=== PATIENT | male | born 1940 | race Caucasian/White ===

== ENCOUNTER → 2016-07-03 | Outpatient (CLI) | payer MEDICARE ==
--- NOTE | 2016-07-04 09:48 | XR ---
EXAMINATION TYPE: XR forearm RT DATE OF EXAM: 07/03/2016 11:33 AM COMPARISON: NONE HISTORY: Pain Two views of the forearm demonstrate that the osseous structures appear to be intact and the joint sp aces appear to be preserved. There is no acute fracture or dislocation. Small olecranon spur noted. There is a bony deformity of the distal lateral epicondyles which appears chronic. IMPRESSION: 1. No acute fracture or dislocation 2. Bony deformity is awfully lateral epicondyles appears chronic. May be related to remote trauma or small osteochondroma. Consider elbow series.
== END | disposition home or self-care (01) ==
LOC: RADXRYALE 10:03
PROVIDERS: ATTEND Family Medicine
DX: M95.9 Acquired deformity of musculoskeletal system, unspecified (principal); M79.631 Pain in right forearm; Z91.81 History of falling

== ENCOUNTER → 2016-07-26 | Outpatient (CLI) | payer MEDICARE ==
--- NOTE | 2016-07-26 13:29 | MR ---
EXAMINATION TYPE: MR brain wo con DATE OF EXAM: 07/26/2016 1:19 PM COMPARISON: 07/17/2013 HISTORY: Memory loss T1-weighted sagittal, T2, FLAIR, and diffusion axial, and T2 coronal coronal views of the brain are s ubmitted. There is no evidence of acute ischemia. The ventricles, basal cisterns, and sulci overlying the conv exities are consistent with moderate degenerative change. Periventricular and deep white matter areas of abnormal signal are compatible with remote ischemic ch avani. Craniocervical junction maintained. Sella turcica has a normal appearance. There is mild mucosal thickening involving the posterior nasopharynx which may be inflammatory correl ate clinically. Changes of mild sinusitis noted. IMPRESSION: 1. No acute intracranial process. 2. Moderate degenerative and remote ischemic white matter change.
== END | disposition home or self-care (01) ==
LOC: RADMRIMAIN 12:39
PROVIDERS: ATTEND Psychiatry & Neurology Neurology
DX: G30.1 Alzheimer's disease with late onset (principal)
CPT/HCPCS: 70551

== ENCOUNTER → 2019-02-26 | Outpatient (CLI) | payer MEDICARE ==
--- NOTE | 2019-02-26 14:08 | CT ---
EXAMINATION TYPE: High-resolution CT chest DATE OF EXAM: 02/26/2019 COMPARISON: 04/23/2013 HISTORY: 78-year-old male with cough and shortness of breath. TECHNIQUE: Contiguous high resolution axial scanning of the chest without IV contrast. 1 mm slice thi ckness with 1 cm gap was utilized per HRCT protocol. Both prone and supine imaging was performed. CT DLP: 213 mGycm Automated exposure control for dose reduction was used. FINDINGS: Heart upper limits of normal in size without pericardial effusion. Mitral annular calcifications note d. Ascending aorta is ectatic at 3.6 cm with mild atherosclerotic arch calcifications and conventional a [facility] vessel branching anatomy. By noncontrast, HRCT technique, no thoracic lymphadenopathy is identified. Large caliber to the main right and left pulmonary arteries at 2.5 and 2.8 cm, respectively, suggesti ng underlying pulmonary arterial hypertension. Mild diffuse bronchial wall thickening. Mild to moderate upper lung centrilobular emphysema. Few scattered 4 mm pulmonary nodules left upper lobe, one nodule axial image 20 posteriorly not clear ly seen previously and can be reassessed at 6 months. No honeycombing, dominant groundglass, centrilobular nodularity, tree-in-bud opacities, thickening of the bronchovascular bundles. There is some subsegmental atelectasis along the inferior lingula. No consolidation or pleural effusion. Bones: Osteopenia. Mild endplate spondylosis through throughout the thoracic spine. Old bilateral cla vicular fractures. IMPRESSION: 1. COPD WITH MILD TO MODERATE EMPHYSEMA. 2. PULMONARY ARTERIAL HYPERTENSION. 3. A FEW SCATTERED LEFT UPPER LOBE PULMONARY NODULES MEASURING 4 MM. ONE OF THESE APPEARS TO BE NEW F 2012 AND CAN BE REASSESSED IN 6 MONTHS. 4. NO SPECIFIC HRCT FINDINGS OF INTERSTITIAL LUNG DISEASE.
== END | disposition home or self-care (01) ==
LOC: RADCTMAIN 10:50
PROVIDERS: ATTEND Internal Medicine Critical Care Medicine
DX: J43.9 Emphysema, unspecified (principal); I27.21 Secondary pulmonary arterial hypertension
CPT/HCPCS: 71250

== ENCOUNTER → 2020-02-08 | Outpatient (CLI) | payer MEDICARE ==
--- NOTE | 2020-02-08 16:07 | XR ---
Bilateral hips HISTORY: Pain 2 views of each hip are submitted. Vascular calcifications are noted incidentally. Bone mineralization, joint spaces and alignment are m aintained. IMPRESSION: Normal hips.
--- NOTE | 2020-02-08 16:32 | XR ---
Lumbar spine HISTORY: Pain 3 views lumbar spine Anterior wedge compression deformity T10 is of questionable age, mild anterior wedging also present a t T12, T11. There is a resulting kyphosis. There is multilevel spondylosis. Lumbar vertebral bodies s how preserved alignment. Loss of disc height present at L3-4, L5-S1. Process is present in the driller helper ior elements of the lower lumbar spine compatible with facet arthropathy. Bone mineralization is redu juan manuel. There is a inferior vena cava filter present with the nose superimposed over the T12-L1 disc spa ce, there is a tilt towards the right and anteriorly. Calcifications are present in the paraspinal lo cation, possible nephrolithiasis. Atheromatous calcification present within the splenic artery and ao rta is noted. IMPRESSION: Degenerative disc disease, osteopenia, facet arthropathy. Inferior vena cava filter as de scribed, possible nephrolithiasis. Wedge compression deformities in the lower thoracic spine of quest ionable age.
== END | disposition home or self-care (01) ==
LOC: RADXRMAIN 13:13
PROVIDERS: ATTEND Family Medicine
DX: M51.36 Other intervertebral disc degeneration, lumbar region (principal); M47.816 Spondylosis without myelopathy or radiculopathy, lumbar region; M85.88 Other specified disorders of bone density and structure, other site; Z95.828 Presence of other vascular implants and grafts; M25.552 Pain in left hip; M25.551 Pain in right hip
CPT/HCPCS: 72100; 73521

== ENCOUNTER → 2021-02-07 | Outpatient (CLI) | payer MEDICARE | END | disposition home or self-care (01) | LOC: LABPAT 13:25 | PROVIDERS: ATTEND Orthopaedic Surgery | DX: Z01.812 Encounter for preprocedural laboratory examination (principal); M17.12 Unilateral primary osteoarthritis, left knee; Z22.322 Carrier or suspected carrier of Methicillin resistant Staphylococcus aureus | CPT/HCPCS: 87070 ==

== ENCOUNTER 2021-02-20 08:47 | Observation (INO) | payer MEDICARE ==
[2021-02-10 15:15] VITALS: BMI 30.3
--- NOTE | 2021-02-19 11:21 | HP ---
HISTORY AND PHYSICAL DATE OF SURGERY: 02/20/2021 William Carrasco is an 80-year-old gentleman seen with symptomatic left knee osteoarthritis. We discussed options for treatment. He elected to proceed with left total knee arthroplasty. Consent regarding the procedure was obtained. Medical clearance was provided by Dr. Jose Marx. PAST MEDICAL HISTORY: Hypertension, hyperlipidemia, hypothyroidism, asthma. PAST SURGICAL HISTORY: Tonsillectomy, adenoidectomy, vasectomy. DAILY MEDICATIONS: Cozaar, Lipitor, Synthroid, tramadol, Ventolin inhaler. ALLERGIES: NONE REPORTED. SOCIAL HISTORY: He denies current tobacco use. PHYSICAL EVALUATION OF THE LEFT KNEE: Range of motion is negative 3/4 to 100. Mild effusion. Tenderness, medial joint line. Crepitus, medial and patellofemoral compartments with range of motion. Ligaments stable. Hip rotation without pain. Distal neurovascular exam intact. RADIOGRAPHS: Radiographs of the left knee revealed severe osteoarthritic changes. IMPRESSION: 1. Left knee osteoarthritis. 2. Hypertension. 3. Hyperlipidemia. 4. Asthma. PLAN: Left total knee arthroplasty. MMODL / IJN: [id number] /
[~2021-02-20 08:47] MED LIST: ACETAMINOPHEN TAB 500 MG TAB PO PRN; HYDROmorphone 0.5 MG/0.5 ML SYRINGE IVP PRN; MELOXICAM 7.5 MG TAB PO PRN; ONDANSETRON 4 MG/2 ML VIAL IVP ONE; ROPIVACAINE/EPI/CLONIDINE/KET 50 ML SYRINGE MISCELLANE PRN; TRANEXAMIC ACID 1,000 MG in SODIUM CHLORIDE 0.9% 100 ML IVPB PRN
[2021-02-20] MEDS: LACTATED RINGERS 1,000 ML IV SCH (09:47)
[2021-02-20] MEDS ORDERED: LIDOCAINE 1% (10MG/ML) FOR IV START INTRADERMA ONE (09:48)
[2021-02-20] MEDS ORDERED: MIDAZOLAM 2 MG/2 ML VIAL IVP ONE ×2 (10:11→10:28)
[2021-02-20] MEDS ORDERED: fentaNYL (PF) 50 MCG/ML 2 ML AMP IVP ONE ×2 (10:11→10:27)
[2021-02-20] MEDS ORDERED: PROPOFOL 10 MG/ML 20 ML VIAL IV ONE (10:25)
[2021-02-20] MEDS ORDERED: SODIUM CHLORIDE 0.9% 100 ML BAG ONE (10:25)
[2021-02-20] MEDS ORDERED: TRANEXAMIC ACID 1,000 MG/10 ML VIAL ONE (10:25)
[2021-02-20] MEDS ORDERED: MIDAZOLAM 2 MG/2 ML VIAL ONE (10:25)
[2021-02-20] MEDS ORDERED: ROPIVACAINE 5 MG/ML 30 ML VIAL ONE (10:25)
--- NOTE | 2021-02-20 10:51 | P.ANPRN ---
Procedure Note - Anesthesia - Nerve Block Performed Left Adductor Canal Infusion Time Out Performed: Yes (1009) Date of Procedure: 02/20/21 Procedure Start Time: 10:11 Procedure Stop Time: 10:16 Location of Patient: PreOp Indication: Acute Post-Operative Pain, Requested by Surgeon Specifically requested for management of pain by DrOphelia: Kirit Valle Sedation Type: Sedate with meaningful contact maintained Preparation: Sterile Prep, Sterile Dressing Position: Supine Catheter Depth at Skin (cm): 8 Catheter: None Needle Types: Pajunk Needle Gauge: 21 Ultrasound used to visualize needle placement: Yes Ultrasound used to observe medication spread: Yes Injectate: 0.5% Ropivacaine (see comment for volume) (15cc + 5cc nacl) Blood Aspirated: No Pain Paresthesia on Injection Noted: No Resistance on Injection: Normal Image Stored and Saved: Yes Events: Uneventful and Well Tolerated Left iPack Single Time Out Performed: Yes (1009) Date of Procedure: 02/20/21 Procedure Start Time: 10:17 Procedure Stop Time: 10:23 Location of Patient: PreOp Indication: Acute Post-Operative Pain, Requested by Surgeon Specifically requested for management of pain by DrOphelia: Kirit Valle Sedation Type: Sedate with meaningful contact maintained Preparation: Sterile Prep Position: Supine Catheter: None Needle Types: Pajunk Needle Gauge: 21 Ultrasound used to visualize needle placement: Yes Ultrasound used to observe medication spread: Yes Injectate: 0.5% Ropivacaine (see comment for volume) (15cc + 5cc NACL PF) Blood Aspirated: No Pain Paresthesia on Injection Noted: No Resistance on Injection: Normal Image Stored and Saved: Yes Events: Uneventful and Well Tolerated
[2021-02-20] MEDS ORDERED: ceFAZolin 1,000 MG in SODIUM CHLORIDE 0.9% 1,000 ML IRRIGATION ONE (10:56)
[2021-02-20] MEDS ORDERED: HYDROmorphone 0.2 MG/1 ML SYRINGE IVP PRN (12:00)
[2021-02-20] MEDS ORDERED: HYDROcodone/APAP 5-325MG 1 EACH TAB PO PRN (12:00)
[2021-02-20] MEDS ORDERED: ONDANSETRON 4 MG/2 ML VIAL IVP PRN (12:00)
[2021-02-20] MEDS ORDERED: NALOXONE 0.4 MG/ML 1 ML VIAL IV PRN (12:00)
[2021-02-20] MEDS ORDERED: HYDROmorphone 0.5 MG/0.5 ML SYRINGE IVP PRN (12:00)
--- NOTE | 2021-02-20 12:00 | P.OP ---
Date of Procedure: 02/20/21 Preoperative Diagnosis: Left knee osteoarthritis Postoperative Diagnosis: Left knee osteoarthritis Procedure(s) Performed: Left total knee arthroplasty Implants: 1. Depuy attune size 5 left cruciate retaining cemented femur 2. Depuy attune size 5 fixed bearing cemented tibial baseplate 3. Depuy attune size 5 fixed bearing cruciate-retaining 5 mm polyethylene tibial insert 4. Depuy attune 38 mm all polyethylene cemented patella Anesthesia: regional (Adductor canal catheter, Ipack block), spinal Surgeon: Kirit Valle [employer] #1: Filipe Parker Estimated Blood Loss (ml): 45 Pathology: other (Bone) Condition: stable Disposition: PACU Indications for Procedure: 80-year-old patient seen with symptomatic left knee osteoarthritis. After treatment options were discussed, he elected to proceed with total knee arthroplasty. Operative Findings: See description of procedure Description of Procedure: Patient was taken to the operative suite after having an adductor canal catheter placed by the department of anesthesia as well as an Ipack block for postoperative pain management. Patient underwent a spinal anesthetic by the department of anesthesia. Patient was given preoperative IV intake antibiotics and TXA. A well-padded tourniquet was placed about the left lower extremity. The lower extremity was then prepped and draped in the normal sterile orthopedic fashion. The extremity was elevated, a tourniquet was insufflated to 300. A standard anterior incision was made sharply through skin. Dissection was taken down through the subcutaneous soft tissues down to the extensor mechanism. A medial arthrotomy was performed, patella was everted and knee was flexed. There was advanced osteoarthritis noted. I introduced my distal intramedullary femoral drill. I then introduced the distal femoral cutting jig. Filipe PIMENTEL secured the cutting jig with 2 pins. I held retractors in position while Filipe PIMENTEL performed the distal femoral resection through the guide area we now removed her distal femoral cutting guide. We now placed our 4-in-1 femoral cutting block and positioned and it was secured with 2 pins by Filipe PIMENTEL while I held the block in position. The distal femoral finishing was now completed. A proximal tibial cutting guide was positioned. I held the guide in the appropriate position with both hands well Filipe PIMENTEL inserted stabilizing pins into the guide. Proximal tibial cut was made. We now placed a trial femoral component into position, along with an appropriate size tibial tray and insert. We now took the knee through range of motion and had full extension good flexion and good overall soft tissue balance noted. The patella was everted and stabilized with 2 towel clips held by Filipe PIMENTEL while I p erformed a flush with patellar quad tendon utilizing a fresh sawblade. We templated the patella, appropriate drill holes were made. An appropriate trial patella was positioned, knee was taken through full range of motion with the patella tracking very nicely. The trial patella was removed. Drill holes were made through the femoral component. All trial components were removed after marking off the appropriate rotation of the tibia. Retractors were now positioned along the proximal tibia. An appropriate keel punch was made with the appropriate size tibial guide by myself while Filipe PIMENTEL assisted by holding retractors. At this point appropriate size implants were chosen and opened. The joint was irrigated copiously with pulse lavage mechanical irrigation. The posterior capsule was infiltrated with local analgesic. The wound was irrigated with pulse lavage mechanical irrigation. We mixed antibiotic methylmethacrylate. We placed the knee into flexion. We placed multiple retractors assisted by Filipe PIMENTEL to expose the proximal tibia. Once the methyl methacrylate was ready, the tibial component was cemented into place removing any excess methylmethacrylate form by both myself and Filipe PIMENTEL. The femoral component was cemented into place removing the removing any excess methylmethacrylate performed by both myself and Filipe PIMENTEL. We then inserted the appropriate size polyethylene tibial insert. We made sure that it was locked into position. We took the knee into full extension, and then back in a flexion making sure we had removed any excess methylmethacrylate. The patellar component was then cemented down and secured with clamp. Excess methylmethacrylate removed. We kept the knee in full extension, patellar clamp in position until methylmethacrylate had hardened. Once it had hardened the patellar clamp was removed. The knee was taken through full range of motion. The patella tracked nicely. There was good soft tissue balancing. The tourniquet was now released. Additional hemostasis was achieved via electrocautery. A second gram of TXA was given. The wound again was irrigated with pulse lavage mechanical irrigation. The superficial soft tissues were infiltrated local analgesic. The extensor mechanism was repaired with Vicryl. We checked the repair with range of motion and it was stable. The subcutaneous soft tissues were repaired with Vicryl in layers. The skin was approximated with pernio/Dermabond. Sterile dressings were applied followed by loose web roll and Jason bandage. The patient was transferred to a bed, and taken to recovery in stable and satisfactory condition. Filipe PIMENTEL assisted with this complex procedure.
[2021-02-20] MEDS ORDERED: ROPIVACAINE 0.2%-NS ON-Q PUMP 1,090 MG, EMPTY PAIN BALL 1 EACH MISCELLANE PRN (12:35)
[2021-02-20] MEDS ORDERED: ROPIVACAINE 0.2%-NS ON-Q PUMP 2 MG/ML EACH MISCELLANE ONE (12:44)
--- NOTE | 2021-02-20 13:34 | XR ---
EXAMINATION TYPE: XR knee limited LT DATE OF EXAM: 02/20/2021 COMPARISON: NONE TECHNIQUE: Two views submitted HISTORY: Post op FINDINGS: There is a prosthetic knee in near anatomic alignment. There is soft tissue edema and emphysema. IMPRESSION: 1. Postoperative change. Appears in near-anatomic alignment
[2021-02-20] MEDS: SODIUM CHLORIDE 0.9% 1,000 ML IV SCH (14:51)
[2021-02-20] MEDS ORDERED: IPRATROPIUM-ALBUTEROL 3 ML NEB INHALATION PRN (16:04)
[2021-02-20] MEDS ORDERED: AZELASTINE 137MCG/SPRAY INTRANASAL PRN (16:05)
[2021-02-20 16:34] LABS: Glucose,Whole Blood 105 mg/dL (75-99)
[2021-02-20] MEDS: LOSARTAN 50 MG TAB PO SCH (17:32)
[2021-02-20] MEDS: HYDROmorphone 0.5 MG/0.5 ML SYRINGE IVP PRN ×2 (17:38→21:27)
[2021-02-20] MEDS ORDERED: amLODIPine 5 MG TAB PO STA (18:36)
[2021-02-20] MEDS: HYDROcodone/APAP 5-325MG 1 EACH TAB PO PRN (19:21)
[2021-02-20] MEDS: IPRATROPIUM-ALBUTEROL 3 ML NEB INHALATION SCH (20:23)
[2021-02-20] MEDS: FORMOTEROL FUMARATE 20 MCG/2 ML NEBU INHALATION SCH (20:23)
[2021-02-20] MEDS: levETIRAcetam 250 MG TAB PO SCH (21:25)
[2021-02-20] MEDS: SENNOSIDES-DOCUSATE SODIUM 1 EACH TAB PO SCH (21:25)
[2021-02-21] MEDS: HYDROcodone/APAP 5-325MG 1 EACH TAB PO PRN ×2 (05:14→10:46)
[2021-02-21] MEDS: LACTATED RINGERS 1,000 ML IV SCH (05:15)
[2021-02-21] MEDS: LEVOTHYROXINE 50 MCG TAB PO SCH (05:17)
--- NOTE | 2021-02-21 07:06 | P.PN ---
Progress Note - Text Progress Note Date: 02/21/21 (418) Anesthesiology Postop day 1 status post total knee arthroplasty with adductor canal catheter. Patient doing well. VAS 5 out of 10. [Gross strength intact in lower extremity]. [Afebrile]. [Denies alterations in sensorium]. [Catheter site intact]. Heart [regular rate] Lungs [nonlabored] Abdomen [nondistended] Assessment: Postop day [1] status post total knee arthroplasty with adductor canal catheter Plan: All questions answered. Maintain catheter [2] more days with patient removal at home. Instructions were given at discharge.[]
[2021-02-21 07:10] LABS: African American GFR (CKD) >90 (>60 ml/min/1.73 sqM); Anion Gap 6 mmol/L; Blood Urea Nitrogen 18 mg/dL (9-20); Calcium 8.5 mg/dL (8.4-10.2); Carbon Dioxide 28 mmol/L (22-30); Chloride 102 mmol/L (98-107); Glucose 110 mg/dL (74-99); Magnesium 1.8 mg/dL (1.6-2.3); Non-African American GFR(CKD) 80 (>60 ml/min/1.73 sqM); Sodium 136 mmol/L (137-145)
[2021-02-21] MEDS: SODIUM CHLORIDE 0.9% 1,000 ML IV SCH ×2 (07:53→21:17)
[2021-02-21] MEDS: MAGNESIUM OXIDE 400 MG TAB PO SCH (08:00)
[2021-02-21] MEDS: ENOXAPARIN 30 MG/0.3 ML SYRINGE SQ SCH ×2 (08:00→21:17)
[2021-02-21] MEDS: HYDROmorphone 0.5 MG/0.5 ML SYRINGE IVP PRN (08:00)
[2021-02-21] MEDS: levETIRAcetam 250 MG TAB PO SCH ×2 (08:00→21:17)
[2021-02-21] MEDS: LOSARTAN 50 MG TAB PO SCH (08:00)
[2021-02-21] MEDS: DONEPEZIL 10 MG TAB PO SCH (08:00)
--- NOTE | 2021-02-21 08:02 | P.PN ---
Subjective Progress Note Date: 02/21/21 Principal diagnosis: Status post left total knee arthroplasty Patient is evaluated today at bedside, he is resting in his hospital bed. He does have discomfort throughout the left knee. Hard time moving the knee at this time. He currently denies any headaches, lightheadedness, chest pain or shortness of breath. He is eager work with physical therapy today. Objective - Vital Signs Vital signs: Vital Signs Temp 98.3 F 02/21/21 07:32 Pulse 94 02/21/21 07:32 Resp 16 02/21/21 07:32 BP 139/69 02/21/21 07:32 Pulse Ox 98 02/21/21 07:32 Intake & Output 02/20/21 02/21/21 02/21/21 18:59 06:59 18:59 Intake Total 851 560 Output Total 445 875 Balance 406 -315 Weight 85.5 kg Intake: IV 851 Intake, IV Titration 320 Amount Sodium Chloride 0.9% 1, 220 000 ml @ 50 mls/hr IV . Q20H TOY Rx#:[id number] ceFAZolin 2 gm In Sodium 100 Chloride 0.9% 50 ml @ 100 mls/hr IVPB Q8H TOY Rx#: [id number] Oral 240 Output: Urine 400 875 Estimated Blood Loss 45 Other: # Voids 3 - Exam Left lower extremity: Incision is clean, dry, and intact. The foam dressing is in good condition. There is minimal soft tissue swelling and ecchymosis surrounding the medial and lateral aspects of the incision. Calf is soft, no tenderness with palpation. Plantar flexion, dorsiflexion, EHL, FHL are intact. Sensory exam to light touch throughout the extremity is intact, dorsal pedis pulses 2+. - Labs CBC & Chem 7: 02/21/21 06:16 Labs: Abnormal Lab Results - Last 24 Hours (Table) 02/20/21 02/21/21 Range/Units 16:31 06:16 Sodium 136 L (137-145) mmol/L Glucose 110 H (74-99) mg/dL POC Glucose (mg/dL) 105 H (75-99) mg/dL Assessment and Plan Assessment: Postoperative day #1 status post left total knee arthroplasty Plan: Pain control, continue use of current medication GI and DVT prophylaxis, continue subcu medication during inpatient stay Wound care instructions were discussed the patient Icing and elevating techniques discussed Encourage incentive spirometer Medical recommendations Discharge planning: Anticipate additional nights today for pain control along with ambulation training Time with Patient: Less than 30
[2021-02-21] MEDS: FORMOTEROL FUMARATE 20 MCG/2 ML NEBU INHALATION SCH ×2 (08:15→20:03)
[2021-02-21] MEDS: IPRATROPIUM-ALBUTEROL 3 ML NEB INHALATION SCH ×4 (08:15→20:03)
[2021-02-21 09:38] LABS: Basophils # (A) 0.04 X 10*3/uL (0.00-0.10); Basophils % (A) 0.6 %; Eosinophils % (A) 1.6 %; HCT 39.5 % (39.6-50.0); HGB 12.6 g/dL (13.0-17.0); Lymphocytes # (A) 1.52 X 10*3/uL (0.90-5.00); Lymphocytes % (A) 24.4 %; MCH 31.3 pg (27.0-32.0); MCHC 31.9 g/dL (32.0-37.0); MCV 98.3 fL (80.0-97.0); Mean Platelet Volume 10.4 fL (9.5-12.2); Monocytes # (A) 0.81 X 10*3/uL (0.20-1.00); Neutrophils # (A) 3.72 X 10*3/uL (1.80-7.70); Neutrophils % (A) 59.8 %; Platelet Count 139 X 10*3/uL (140-440); RBC 4.02 X 10*6/uL (4.40-5.60); RDW 12.9 % (11.5-14.5); WBC 6.23 X 10*3/uL (4.50-10.00)
--- NOTE | 2021-02-21 12:54 | P.PN ---
Progress Note - Text Progress Note Date: 02/21/21 Patient seen at bedside this morning. I agree with Joshua black PA-C note from this morning. Patient is in moderate amount pain when seen at bedside this morning. Will chhange from Aneta 5 mg/325 mg to Aneta 7.5 mg/325 mg for pain. Also add Vistaril every 6 hours for pain control. Hydromorphone only when needed
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
[2021-02-21 16:48] LABS: MCH 33.9 pg (25.0-35.0); MCHC 35.1 g/dL (31.0-37.0); MCV 96.4 fL (80.0-100.0); Mean Platelet Volume 8.6; Platelet Count 133 k/uL (150-450); RBC 3.84 m/uL (4.30-5.90); RDW 13.5 % (11.5-15.5); WBC 6.1 k/uL (3.8-10.6)
[2021-02-21] MEDS: hydrOXYzine pamoate 25 MG CAP PO SCH ×2 (17:02→22:57)
[2021-02-21] MEDS: HYDROcodone/APAP 7.5-325MG 1 EACH TAB PO PRN ×2 (17:02→22:58)
[2021-02-21] MEDS: SENNOSIDES-DOCUSATE SODIUM 1 EACH TAB PO SCH (21:17)
[2021-02-22] MEDS: HYDROcodone/APAP 7.5-325MG 1 EACH TAB PO PRN ×3 (05:52→21:59)
[2021-02-22] MEDS: LEVOTHYROXINE 50 MCG TAB PO SCH (05:52)
[2021-02-22] MEDS: hydrOXYzine pamoate 25 MG CAP PO SCH ×2 (05:53→10:29)
[2021-02-22] MEDS: LACTATED RINGERS 1,000 ML IV SCH (06:47)
[2021-02-22] MEDS: ENOXAPARIN 30 MG/0.3 ML SYRINGE SQ SCH ×2 (07:23→21:59)
[2021-02-22] MEDS: LOSARTAN 50 MG TAB PO SCH (07:24)
[2021-02-22] MEDS: levETIRAcetam 250 MG TAB PO SCH ×2 (07:24→21:59)
[2021-02-22] MEDS: DONEPEZIL 10 MG TAB PO SCH (07:24)
[2021-02-22] MEDS: MAGNESIUM OXIDE 400 MG TAB PO SCH (07:24)
[2021-02-22] MEDS: IPRATROPIUM-ALBUTEROL 3 ML NEB INHALATION SCH ×4 (09:18→21:20)
[2021-02-22] MEDS: FORMOTEROL FUMARATE 20 MCG/2 ML NEBU INHALATION SCH ×2 (09:18→21:20)
[2021-02-22 09:33] LABS: Basophils # (A) 0.04 X 10*3/uL (0.00-0.10); Basophils % (A) 0.7 %; Eosinophils % (A) 1.7 %; HCT 37.8 % (39.6-50.0); HGB 11.9 g/dL (13.0-17.0); Lymphocytes # (A) 1.61 X 10*3/uL (0.90-5.00); MCH 31.6 pg (27.0-32.0); MCHC 31.5 g/dL (32.0-37.0); MCV 100.5 fL (80.0-97.0); Mean Platelet Volume 10.3 fL (9.5-12.2); Monocytes # (A) 0.71 X 10*3/uL (0.20-1.00); Monocytes % (A) 11.9 %; Neutrophils # (A) 3.48 X 10*3/uL (1.80-7.70); Neutrophils % (A) 58.2 %; Platelet Count 124 X 10*3/uL (140-440); RBC 3.76 X 10*6/uL (4.40-5.60); RDW 13.1 % (11.5-14.5); WBC 5.97 X 10*3/uL (4.50-10.00)
--- NOTE | 2021-02-22 10:50 | P.PN ---
Subjective Progress Note Date: 02/22/21 Principal diagnosis: Status post left total knee arthroplasty Patient is evaluated today at bedside, he is resting in his hospital chair. Patient did get up with physical therapy prior to my arrival. I was able to discuss physical therapist his progress. Patient is moving very slowly at this time, he's having her time supporting himself with a walker. On my exam today, the patient seems very lethargic on exam. He is able to answer all my questions appropriately, but there is quite a bit of delay and pauses during his sentences. He states the knee is quite painful at this time. He denies any headaches, lightheadedness, chest or shortness of breath. Objective - Vital Signs Vital signs: Vital Signs Temp 98.7 F 02/22/21 07:48 Pulse 82 02/22/21 09:35 Resp 18 02/22/21 08:41 BP 109/64 02/22/21 07:48 Pulse Ox 97 02/22/21 07:48 Intake & Output 02/21/21 02/22/21 02/22/21 18:59 06:59 18:59 Intake Total 480 Output Total 150 400 Balance 330 -400 Intake: Oral 480 Output: Urine 150 400 Other: Voiding Method Toilet Toilet Urinal Urinal # Voids 3 - Exam Left lower extremity: Incision is clean, dry, and intact. The foam dressing is in good condition. There is minimal soft tissue swelling and ecchymosis surrounding the medial and lateral aspects of the incision. Calf is soft, no tenderness with palpation. Plantar flexion, dorsiflexion, EHL, FHL are intact. Sensory exam to light touch throughout the extremity is intact, dorsal pedis pulses 2+. - Labs CBC & Chem 7: 02/22/21 06:46 02/21/21 06:16 Labs: Abnormal Lab Results - Last 24 Hours (Table) 02/21/21 02/22/21 Range/Units Unknown 06:46 RBC 3.84 L 3.76 L (4.30-5.90) m/uL Hgb 11.9 L (13.0-17.0) g/dL Hct 37.0 L 37.8 L (39.0-53.0) % MCV 100.5 H (80.0-97.0) fL MCHC 31.5 L (32.0-37.0) g/dL Plt Count 133 L 124 L (150-450) k/uL Assessment and Plan Assessment: Postoperative day #2 status post left total knee arthroplasty Plan: Pain control, I did discontinue the Vistaril 25 mg. Continue the [place] as needed. GI and DVT prophylaxis, continue subcu medication during inpatient stay Wound care instructions were discussed the patient Icing and elevating techniques discussed Encourage incentive spirometer Medical recommendations Discharge planning: Plan for discharge to rehab on 02/23/2021 Time with Patient: Less than 30
[2021-02-22] MEDS: SENNOSIDES-DOCUSATE SODIUM 1 EACH TAB PO SCH (21:59)
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
[2021-02-23] MEDS: SODIUM CHLORIDE 0.9% 1,000 ML IV SCH (00:41)
[2021-02-23] MEDS ORDERED: ACETAMINOPHEN TAB 325 MG TAB PO PRN (03:50)
[2021-02-23] MEDS ORDERED: FUROSEMIDE 10 MG/ML 2 ML VIAL IV ONE (03:50)
--- NOTE | 2021-02-23 04:09 | XR ---
EXAMINATION TYPE: XR chest 1V portable DATE OF EXAM: 02/23/2021 COMPARISON: 02/21/2021 HISTORY: Congestion TECHNIQUE: Single view FINDINGS: Heart is normal. Lungs are clear of consolidation. There are no hilar masses. Thoracic aort a is atheromatous. There is no pleural effusion. Bony thorax is intact. There is old left clavicle fr acture. IMPRESSION: No active cardiopulmonary disease. There is improved inspiration compared to recent exam.
[2021-02-23] MEDS: LACTATED RINGERS 1,000 ML IV SCH (06:02)
[2021-02-23] MEDS: LEVOTHYROXINE 50 MCG TAB PO SCH (06:03)
[2021-02-23] MEDS: DONEPEZIL 10 MG TAB PO SCH (08:43)
[2021-02-23] MEDS: HYDROcodone/APAP 7.5-325MG 1 EACH TAB PO PRN ×4 (08:43→21:21)
[2021-02-23] MEDS: levETIRAcetam 250 MG TAB PO SCH ×2 (08:44→21:20)
[2021-02-23] MEDS: MAGNESIUM OXIDE 400 MG TAB PO SCH (08:44)
[2021-02-23] MEDS: LOSARTAN 50 MG TAB PO SCH (08:44)
[2021-02-23] MEDS: ENOXAPARIN 30 MG/0.3 ML SYRINGE SQ SCH ×2 (08:44→21:20)
[2021-02-23] MEDS: IPRATROPIUM-ALBUTEROL 3 ML NEB INHALATION SCH ×4 (09:09→20:28)
[2021-02-23] MEDS: FORMOTEROL FUMARATE 20 MCG/2 ML NEBU INHALATION SCH ×2 (09:09→20:28)
[2021-02-23 09:12] LABS: Basophils # (A) 0.05 X 10*3/uL (0.00-0.10); Basophils % (A) 0.8 %; Eosinophils # (A) 0.18 X 10*3/uL (0.04-0.35); Eosinophils % (A) 2.9 %; HCT 37.1 % (39.6-50.0); HGB 11.6 g/dL (13.0-17.0); Lymphocytes # (A) 1.61 X 10*3/uL (0.90-5.00); Lymphocytes % (A) 25.9 %; MCH 32.1 pg (27.0-32.0); MCHC 31.3 g/dL (32.0-37.0); MCV 102.8 fL (80.0-97.0); Mean Platelet Volume 10.6 fL (9.5-12.2); Monocytes # (A) 0.67 X 10*3/uL (0.20-1.00); Monocytes % (A) 10.8 %; Neutrophils # (A) 3.67 X 10*3/uL (1.80-7.70); Platelet Count 139 X 10*3/uL (140-440); RBC 3.61 X 10*6/uL (4.40-5.60); RDW 13.2 % (11.5-14.5); WBC 6.22 X 10*3/uL (4.50-10.00)
[2021-02-23] MEDS ORDERED: PANTOPRAZOLE 40 MG/10 ML VIAL IVP SCH (09:30)
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
--- NOTE | 2021-02-23 10:12 | P.PN ---
Subjective Progress Note Date: 02/23/21 Principal diagnosis: Status post left total knee arthroplasty Patient is evaluated today at bedside, he is resting in his hospital chair. Patient did work with physical therapy this morning, I was able to discuss the case with them. He is doing a little bit better with ambulation, he still having a hard time bending the knee when going from a sitting to standing position. Patient seems more alert today on exam. He still notes significant discomfort throughout the knee. Patient denies any headaches, lightheadedness, chest pain or shortness of breath. Patient has not had a bowel movement at this time. Objective - Vital Signs Vital signs: Vital Signs Temp 98.6 F 02/23/21 07:44 Pulse 88 02/23/21 09:19 Resp 18 02/23/21 09:19 BP 155/76 02/23/21 07:44 Pulse Ox 96 02/23/21 09:09 Intake & Output 02/22/21 02/23/21 02/23/21 18:59 06:59 18:59 Output Total 200 1425 450 Balance -200 -1425 -450 Output: Urine 200 1425 450 Other: Voiding Method Toilet Urinal # Voids 2 - Exam Left lower extremity: Incision is clean, dry, and intact. The foam dressing is in good condition. There is minimal soft tissue swelling and ecchymosis surrounding the medial and lateral aspects of the incision. Calf is soft, no tenderness with palpation. Plantar flexion, dorsiflexion, EHL, FHL are intact. Sensory exam to light touch throughout the extremity is intact, dorsal pedis pulses 2+. - Labs CBC & Chem 7: 02/23/21 05:31 02/21/21 06:16 Labs: Abnormal Lab Results - Last 24 Hours (Table) 02/23/21 Range/Units 05:31 RBC 3.61 L (4.40-5.60) X 10*6/uL Hgb 11.6 L (13.0-17.0) g/dL Hct 37.1 L (39.6-50.0) % MCV 102.8 H (80.0-97.0) fL MCH 32.1 H (27.0-32.0) pg MCHC 31.3 L (32.0-37.0) g/dL Plt Count 139 L (140-440) X 10*3/uL Assessment and Plan Assessment: Postoperative day #3 status post left total knee arthroplasty Constipation Plan: Pain control, plan for use of oral [place] 7.5 mg/325 mg GI and DVT prophylaxis, aspirin 81 mg twice a day for 1 month after discharge Colace 100 mg and MiraLAX 17 g have been prescribed as patient Wound care instructions were discussed the patient Icing and elevating techniques discussed Encourage incentive spirometer Medical recommendations Discharge planning: Plan for discharge to rehab today Time with Patient: Less than 30
[2021-02-23] MEDS ORDERED: polyethylene glycoL 3350 17 GM POWD.PACK PO STA (10:19)
[2021-02-23] MEDS: hydrALAZINE HCL 25 MG TAB PO SCH ×3 (11:22→21:20)
--- NOTE | 2021-02-23 13:45 | US ---
EXAMINATION TYPE: US venous doppler duplex LE LT DATE OF EXAM: 02/23/2021 10:52 AM COMPARISON: NONE CLINICAL HISTORY: calf pain, s/p left tka. SIDE PERFORMED: Left TECHNIQUE: The lower extremity deep venous system is examined utilizing real time linear array sonog butch with graded compression, doppler sonography and color-flow sonography. VESSELS IMAGED: Common Femoral Vein Deep Femoral Vein Greater Saphenous Vein * Femoral Vein Popliteal Vein Small Saphenous Vein * Proximal Calf Veins (* superficial vessels) Complex bakers cyst seen in the left popliteal fossa measuring 5.2x1.7x3.6cm There is normal flow, compressibility, vascular waveforms. Left Leg: Negative for DVT IMPRESSION: No evident deep venous anastomosis at the level of the knee or central to the left knee within the left lower extremity. Irregular focus within the popliteal fossa shows low level internal echoes and may be a complicated Arce's cyst, hematoma, follow-up could be performed to assess for s tability or resolution or alternatively consider alternate imaging for better evaluation.
--- NOTE | 2021-02-23 14:30 | P.DS ---
Providers Date of admission: 02/21/21 13:51 Expected date of discharge: 02/23/21 Attending physician: Kirit Valle Consults: 02/20/21 12:00 Consult Physician Routine Consulting Provider: Jose Marx Reason/Comments: Medical management Do you want consulting provider notified?: Yes Primary care physician: Jose Marx Hospital Course: Date of admission: 02/20/2021 Date of discharge: 02/23/2021 Admission diagnosis: Status post left total knee arthroplasty Discharge diagnosis: Same Attending physician: Dr. Valle Surgical procedures: Left total knee arthroplasty Brief history: Patient is a a 80-year-old male with a history of progressive primary left knee osteoarthritis. At this point patient has failed conservative treatment measures and has opted to proceed with a elective left total knee arthroplasty. Hospital course: Details of patient's surgery can be found in operative report. Patient tolerated the procedure well and was subsequently transported to orthopedic floor. Patient's orthopeidc and medical care was provided daily. Patient had daily laboratory tests performed for evaluation of overall blood counts. Patient had daily physical therapy to include strengthening range of motion as well as education with walker ambulation. Patient was treated with Lovenox for their postoperative DVT prophylaxis during their inpatient stay. Patient was noted to have a relatively uneventful postoperative course. Patient reported satisfactory pain control with oral pain medications by postoperative day 1. Patient showed satisfactory progress with physical therapy. Patient moved steadily through the program and had no difficulty meeting the goals by postoperative day 3. Given patient's otherwise satisfactory course and having met physical therapy goals, plan is to discharge patient rehab on postoperative day 3. Discharge condition/disposition: Patient will be discharged to rehab in stable condition. Discharge medications: Instructions are given on resumption of patient's normal daily medications per primary care recommendation, in addition patient will be prescribed [place] 7.5 mg/325 mg, aspirin 81 mg, Colace 100 mg, MiraLAX 17 g. Discharge instructions: 1. Wound care and infection precautions, [keep incision dry and covered while showering], no lotions, creams, moisturizers. No soaking, tubs, pools, hottubs. Do not scrub over the incision. 2. Weight-bear [as tolerated] with walker / cane until follow-up. 3. Ice and elevate when necessary. Do not exceed 20 minutes per hour with ice pack. 4. Utilize compression sleeve until seen at first follow up appointment. 5. Visiting nursing care. 6. Home physical therapy. 7. Pain meds and anticoagulants per prescription. 8. Pain medication has potential to cause constipation. Increase oral fluid and fiber intake. Contact primary care provider if you have not had a bowel movement within 48 hours after discharge 9. No anti-inflammatory medication until discussed at first post operative visit, this including Motrin, Aleve, Mobic, Diclofenac. 10. Follow up in office at 2 weeks postop with Joshua Christina PA-C/Filipe Ho 11. Follow up with your primary care doctor 7-10 days after discharge. 12. Contact [facility] with any questions, . Procedures: Left total knee arthroplasty Patient Condition at Discharge: Fair Plan - Discharge Summary Discharge Rx Participant: Yes New Discharge Prescriptions: New HYDROcodone/APAP 7.5-325MG [[place] 7.5] 1 - 2 each PO Q6HR PRN #42 tab PRN Reason: Pain polyethylene glycoL 3350 [Miralax] 17 gm PO DAILY PRN #30 packet PRN Reason: Constipation Ipratropium-Albuterol Nebulize [Duoneb 0.5 mg-3 mg/3 ml Soln] 3 ml INHALATION RT-QID ml Sennosides-Docusate Sodium [Senokot-S] 2 each PO HS tab Aspirin [Adult Low Dose Aspirin EC] 81 mg PO BID #60 tab Docusate [Colace] 100 mg PO DAILY #30 cap hydrALAZINE HCL [Apresoline] 25 mg PO TID tab Ipratropium-Albuterol Nebulize [Duoneb 0.5 mg-3 mg/3 ml Soln] 3 ml INHALATION Q4H PRN ml PRN Reason: Shortness Of Breath Or Wheezing Acetaminophen Tab [Tylenol] 650 mg PO Q6HR PRN tab PRN Reason: Fever And/ Or Pain Continue Multivitamins, Thera [Multivitamin (formulary)] 1 tab PO DAILY Levothyroxine Sodium [Synthroid] 50 mcg PO DAILY Atorvastatin [Lipitor] 40 mg PO HS Olopatadine Hcl Manley 665 mcg NASAL BID PRN PRN Reason: Congestion Magnesium 250 mg PO DAILY levETIRAcetam [Keppra] 250 mg PO Q12HR Donepezil HCl [Aricept ODT] 10 mg PO DAILY Umeclidinium Brm/Vilanterol Tr [Anoro Ellipta 62.5-25 Mcg INH] 1 puff INHALATION DAILY Losartan Potassium [Cozaar] 100 mg PO DAILY Discontinued Albuterol Sulfate [Ventolin HFA] 1 - 2 puff INHALATION DIRECTED PRN PRN Reason: Shortness Of Breath Albuterol Nebulized [Ventolin Nebulized] 2.5 mg INHALATION DIRECTED PRN PRN Reason: sob No Action traMADol HCL [Ultram] 50 mg PO Q12HR PRN PRN Reason: Pain Acetaminophen [Tylenol Arthritis] 650 mg PO TID Discharge Medication List Atorvastatin [Lipitor] 40 mg PO HS 09/15/15 [History] Levothyroxine Sodium [Synthroid] 50 mcg PO DAILY 09/15/15 [History] Multivitamins, Thera [Multivitamin (formulary)] 1 tab PO DAILY 09/15/15 [History] Acetaminophen [Tylenol Arthritis] 650 mg PO TID 02/10/21 [History] Donepezil HCl [Aricept ODT] 10 mg PO DAILY 02/10/21 [History] Losartan Potassium [Cozaar] 100 mg PO DAILY 02/10/21 [History] Magnesium 250 mg PO DAILY 02/10/21 [History] Olopatadine Hcl Manley 665 mcg NASAL BID PRN 02/10/21 [History] Umeclidinium Brm/Vilanterol Tr [Anoro Ellipta 62.5-25 Mcg INH] 1 puff INHALATION DAILY 02/10/21 [History] levETIRAcetam [Keppra] 250 mg PO Q12HR 02/10/21 [History] traMADol HCL [Ultram] 50 mg PO Q12HR PRN 02/10/21 [History] Acetaminophen Tab [Tylenol] 650 mg PO Q6HR PRN tab 02/23/21 [Rx] Aspirin [Adult Low Dose Aspirin EC] 81 mg PO BID #60 tab 02/23/21 [Rx] Docusate [Colace] 100 mg PO DAILY #30 cap 02/23/21 [Rx] HYDROcodone/APAP 7.5-325MG [[place] 7.5] 1 - 2 each PO Q6HR PRN #42 tab 02/23/21 [Rx] Ipratropium-Albuterol Nebulize [Duoneb 0.5 mg-3 mg/3 ml Soln] 3 ml INHALATION Q4H PRN ml 02/23/21 [Rx] Ipratropium-Albuterol Nebulize [Duoneb 0.5 mg-3 mg/3 ml Soln] 3 ml INHALATION RT-QID ml 02/23/21 [Rx] Sennosides-Docusate Sodium [Senokot-S] 2 each PO HS tab 02/23/21 [Rx] hydrALAZINE HCL [Apresoline] 25 mg PO TID tab 02/23/21 [Rx] polyethylene glycoL 3350 [Miralax] 17 gm PO DAILY PRN #30 packet 02/23/21 [Rx] Follow up Appointment(s)/Referral(s): Jose Marx DO [Primary Care Provider] - 1 Week (After DC from subacute rehab) [facility], [NON-STAFF] - As Needed Doe Christina PAC [PHYSICIAN SUIT MAKER] - 03/08/21 3:20 [facility] [NON-STAFF] - As Needed Activity/Diet/Wound Care/Special Instructions: Orthopedic Discharge Instructions: 1. Wound care and infection precautions, keep incision dry and covered while showering, no lotions, creams, moisturizers. No soaking, pools, hot tubs. Do not scrub over incision. 2. Weight-bear as tolerated with walker / cane until follow-up. 3. Ice and elevate when necessary. Do not exceed 20 minutes per hour with ice pack. 4. Utilize compression sleeve until seen at first follow up appointment. 5. Pain meds and anticoagulants per prescription. 6. Pain medication has potential to cause constipation. Increase oral fluid and fiber intake. Contact primary care provider if you have not had a bowel movement within 48 hours after discharge. 7. No anti-inflammatory medication until discussed at first post operative visit, this including Motrin, Aleve, Mobic, Diclofenac. 8. Follow up in office at 2 weeks postop with Joshua Christina PA-C/Filipe Parker PA-C 9. Follow up with your primary care doctor 7-10 days after discharge. 10. Contact [facility] with any questions, . Wound care instructions: 1. Okay to remove the foam dressing on 02/27/2021 2. Utilize basic dressing over the knee 3. Keep incision covered and dry while showering CBC, BMP in 3 days Incentive spirometer every hour 10 [place] Discharge Disposition: TRANSFER TO SNF/ECF
[2021-02-23] MEDS: SENNOSIDES-DOCUSATE SODIUM 1 EACH TAB PO SCH (21:20)
[2021-02-24] MEDS: LEVOTHYROXINE 50 MCG TAB PO SCH (05:53)
[2021-02-24] MEDS ORDERED: PANTOPRAZOLE 40 MG TABLET PO SCH (07:30)
[2021-02-24 07:32] VITALS: BP 169/79; RESP 20; TEMP 98.8
[2021-02-24] MEDS: LOSARTAN 50 MG TAB PO SCH (08:57)
[2021-02-24] MEDS: hydrALAZINE HCL 25 MG TAB PO SCH (08:58)
[2021-02-24] MEDS: MAGNESIUM OXIDE 400 MG TAB PO SCH (08:58)
[2021-02-24] MEDS: DONEPEZIL 10 MG TAB PO SCH (08:58)
[2021-02-24] MEDS: ENOXAPARIN 30 MG/0.3 ML SYRINGE SQ SCH (08:59)
[2021-02-24] MEDS: levETIRAcetam 250 MG TAB PO SCH (08:59)
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
[2021-02-24] MEDS: FORMOTEROL FUMARATE 20 MCG/2 ML NEBU INHALATION SCH (09:59)
[2021-02-24] MEDS: IPRATROPIUM-ALBUTEROL 3 ML NEB INHALATION SCH ×2 (09:59→13:14)
[2021-02-24] MEDS: HYDROcodone/APAP 7.5-325MG 1 EACH TAB PO PRN (10:55)
--- NOTE | 2021-02-24 12:32 | P.PN ---
Subjective Progress Note Date: 02/24/21 Principal diagnosis: Status post left total knee arthroplasty Patient is evaluated today at bedside, he is resting in his hospital bed. Patient's is present today at bedside. Patient was kept overnight by internal medicine due to his elevated blood pressures. They have altered his medications, it is improving. Patient's left knee symptoms are improving, he still notes discomfort. He denies any headaches, lightheadedness, chest pain or shortness of breath Objective - Vital Signs Vital signs: Vital Signs Temp 98.8 F 02/24/21 07:30 Pulse 90 02/24/21 07:30 Resp 20 02/24/21 07:30 BP 169/79 02/24/21 07:30 Pulse Ox 97 02/24/21 07:30 Intake & Output 02/23/21 02/24/21 02/24/21 18:59 06:59 18:59 Output Total 650 Balance -650 Output: Urine 650 Other: Voiding Method Toilet Toilet Toilet Urinal Urinal Urinal # Voids 1 4 - Exam Left lower extremity: Incision is clean, dry, and intact. The foam dressing is in good condition. There is minimal soft tissue swelling and ecchymosis surrounding the medial and lateral aspects of the incision. Calf is soft, no tenderness with palpation. Plantar flexion, dorsiflexion, EHL, FHL are intact. Sensory exam to light touch throughout the extremity is intact, dorsal pedis pulses 2+. - Labs CBC & Chem 7: 02/23/21 05:31 02/21/21 06:16 Assessment and Plan Assessment: Postoperative day #4 status post left total knee arthroplasty Constipation Plan: Pain control, plan for use of oral Newman 7.5 mg/325 mg GI and DVT prophylaxis, aspirin 81 mg twice a day for 1 month after discharge Colace 100 mg and MiraLAX 17 g have been prescribed as patient Wound care instructions were discussed the patient Icing and elevating techniques discussed Encourage incentive spirometer Medical recommendations Discharge planning: Discharging to rehab today Time with Patient: Less than 30
[2021-02-24 13:28] VITALS: PULSE 88
== END 2021-02-24 14:11 ==
LOC: OR 08:47 → 4SSUR 12:22 → OR 02-21 13:51
PROVIDERS: ADMIT Orthopaedic Surgery; ATTEND Orthopaedic Surgery
DX: M17.12 Unilateral primary osteoarthritis, left knee (principal); I97.3 Postprocedural hypertension; J95.821 Acute postprocedural respiratory failure; D62 Acute posthemorrhagic anemia; T81.82XA Emphysema (subcutaneous) resulting from a procedure, initial encounter; J98.11 Atelectasis; R00.0 Tachycardia, unspecified; I10 Essential (primary) hypertension; E03.9 Hypothyroidism, unspecified; E78.00 Pure hypercholesterolemia, unspecified; E78.2 Mixed hyperlipidemia; R41.3 Other amnesia; J44.9 Chronic obstructive pulmonary disease, unspecified; G40.909 Epilepsy, unspecified, not intractable, without status epilepticus; G47.33 Obstructive sleep apnea (adult) (pediatric); Z91.19 Patient's noncompliance with other medical treatment and regimen; F03.90 Unspecified dementia, unspecified severity, without behavioral disturbance, psychotic disturbance, mood disturbance, and anxiety; I45.10 Unspecified right bundle-branch block; H91.90 Unspecified hearing loss, unspecified ear; E66.9 Obesity, unspecified; Z68.30 Body mass index [BMI] 30.0-30.9, adult; G89.29 Other chronic pain; M54.5 Low back pain; K59.00 Constipation, unspecified; I70.0 Atherosclerosis of aorta; Z79.890 Hormone replacement therapy; Z79.82 Long term (current) use of aspirin; Z79.899 Other long term (current) drug therapy; Z88.0 Allergy status to penicillin; Z88.8 Allergy status to other drugs, medicaments and biological substances; Z95.828 Presence of other vascular implants and grafts; Z87.820 Personal history of traumatic brain injury; Z87.81 Personal history of (healed) traumatic fracture; Z98.52 Vasectomy status; Z98.890 Other specified postprocedural states; Z87.891 Personal history of nicotine dependence; Z82.49 Family history of ischemic heart disease and other diseases of the circulatory system
CPT/HCPCS: 94640 ×6; 94760 ×3; 97116 ×2; 97530 ×4; 97162; 97166; 80048; 83735; 85025 ×3; 85027; 88300; 87635; 73560; 71045 ×2; 93971; 27447; 64999; 64447; G0378 ×4; C1776; C1713 ×2; J2250; J1940; J0690 ×3; J2405; J3010; J1650 ×4; J2795 ×2; J2704; C9113; J1170 ×2

== ENCOUNTER 2021-12-08 20:49 | Observation (INO) | payer MEDICARE ==
[2021-12-08] MEDS ORDERED: LORazepam 1 MG TAB PO STA (21:05)
--- NOTE | 2021-12-08 21:44 | CT ---
EXAMINATION TYPE: CT brain wo con CT DLP: 1255.4 mGycm, Automated exposure control for dose reduction was used. DATE OF EXAM: 12/08/2021 9:35 PM COMPARISON: Prior CT Brain from 03/06/2016, 06/24/2013 . CLINICAL INDICATION:Male, 81 years old with history of seizure activity, TECHNIQUE: Brain: Multiple axial CT images of the brain were obtained without IV contrast. FINDINGS: Brain: Extra-axial spaces: No abnormal extra-axial fluid collections. Ventricular system: Dilatation in proportion to cerebral atrophy. Cerebral parenchyma: No acute intraparenchymal hemorrhage or mass effect. The fuchs-white junction is well differentiated. Scattered hypoattenuating areas are seen within the white matter. Cerebellum: Unremarkable. Mass effect: No evidence of midline shift. Intracranial vasculature: Atherosclerotic calcifications of the intracranial vessels. Soft tissues: Normal. Calvarium/osseous structures: No depressed skull fracture. Paranasal sinuses and mastoid air cells: Mild scattered paranasal sinus disease. Visualized orbits: Bilateral aphakia IMPRESSION: 1. No acute intracranial process. 2. Nonspecific white matter changes, likely secondary to chronic small vessel ischemic disease.
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
[2021-12-08 22:12] LABS: Basophils # (A) 0.1 k/uL (0-0.2); Basophils % (A) 1 %; Eosinophils # (A) 0.1 k/uL (0-0.7); Eosinophils % (A) 2 %; HCT 44.9 % (39.0-53.0); HGB 15.1 gm/dL (13.0-17.5); Lymphocytes # (A) 1.6 k/uL (1.0-4.8); Lymphocytes % (A) 19 %; MCH 32.7 pg (25.0-35.0); MCHC 33.5 g/dL (31.0-37.0); MCV 97.5 fL (80.0-100.0); Mean Platelet Volume 7.6; Monocytes # (A) 0.5 k/uL (0-1.0); Monocytes % (A) 6 %; Neutrophils # (A) 6.1 k/uL (1.3-7.7); Neutrophils % (A) 71 %; Platelet Count 148 k/uL (150-450); RBC 4.61 m/uL (4.30-5.90); RDW 13.6 % (11.5-15.5); WBC 8.5 k/uL (3.8-10.6)
[2021-12-08 22:28] LABS: Albumin 3.9 g/dL (3.5-5.0); Calcium 9.2 mg/dL (8.4-10.2); Magnesium 2.2 mg/dL (1.6-2.3); Potassium 4.1 mmol/L (3.5-5.1); Total Bilirubin 0.5 mg/dL (0.2-1.3); Total Protein 6.1 g/dL (6.3-8.2)
[2021-12-08 22:44] LABS: Amorphous Sediment,Urine Rare /hpf; Appearance,Urine Clear (Clear); Bilirubin,Urine Negative (Negative); Blood,Urine Negative (Negative); Calcium Oxalate Crystals,Urine Occasional /hpf; Color,Urine Yellow; Glucose,Urine (UA) Negative (Negative); Hyaline Casts,Urine 4 /lpf (0-2); Ketones,Urine Negative (Negative); Leukocyte Esterase,Urine Negative (Negative); Mucus,Urine Rare /hpf; Nitrite,Urine Negative (Negative); PH, Urine 5.5 (5.0-8.0); Protein,Urine 1+ (Negative); RBC,Urine 1 /hpf (0-5); Specific Gravity,Urine 1.018 (1.001-1.035); Urobilinogen,Urine <2.0 mg/dL (<2.0); WBC,Urine 3 /hpf (0-5)
[2021-12-08] MEDS ORDERED: NALOXONE 0.4 MG/ML 1 ML VIAL IV PRN (23:03)
[2021-12-08] MEDS ORDERED: levETIRAcetam IV 500 MG in SODIUM CHLORIDE 0.9% 100 ML IVPB STA (23:03)
[2021-12-08] MEDS ORDERED: LORazepam 2 MG/ML INJ IV PRN (23:05)
[2021-12-09] MEDS ORDERED: LORazepam 1 MG/0.5 ML VIAL IV PRN (02:19)
[2021-12-09] MEDS ORDERED: ALBUTEROL NEBULIZED 2.5 MG/3 ML INHALATION PRN (08:36)
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
[2021-12-09] MEDS ORDERED: FAMOTIDINE 20 MG/2 ML VIAL IV SCH (09:00)
[2021-12-09] MEDS: HEPARIN SODIUM,PORCINE/PF 5,000 UNIT/0.5 ML SYRINGE SQ SCH ×2 (10:05→20:03)
[2021-12-09] MEDS: ACETAMINOPHEN TAB 500 MG TAB PO SCH ×3 (10:06→23:38)
[2021-12-09] MEDS: DONEPEZIL 10 MG TAB PO SCH (10:08)
[2021-12-09] MEDS: levETIRAcetam 500 MG TAB PO SCH ×2 (10:08→20:03)
[2021-12-09] MEDS: LOSARTAN 50 MG TAB PO SCH (10:09)
--- NOTE | 2021-12-09 14:44 | MR ---
EXAMINATION TYPE: MR brain wo/w con DATE OF EXAM: 12/09/2021 COMPARISON: CT brain 12/08/2021 HISTORY: Seizure TECHNIQUE: Multiplanar, multisequence images of the brain and brainstem is performed without and with IV contras t, utilizing 8 mL intravenous Gadavist . FINDINGS: Diffusion weighted images demonstrate no evidence of a recent infarct or other diffusion ab normality. There is no extra-axial fluid collection. There is scattered deep white matter and perive ntricular white matter high T2 signal. Significant white matter signal abnormality. The ventricular system and cisternal spaces are normal in size and appearance. Midline structures demonstrate normal morphology. The craniocervical junction appears within normal limits. Post contrast images demonstrate no abnormal enhancement. The dural venous sinuses appear pa tent. The visualized sinuses demonstrate mild scattered mucosal thickening. Severe degenerative solares es of the left temporal mandibular joint as seen on prior CT 12/08/2021. IMPRESSION 1. No evidence of intracranial mass, acute/subacute infarct, or abnormal enhancement. 2. Nonspecific white matter changes, likely related to small vessel ischemic disease
[2021-12-09] MEDS: DEXTROSE 5%-0.45% NACL 1,000 ML IV SCH (17:25)
[2021-12-09] MEDS: amLODIPine 5 MG TAB PO SCH (17:26)
[2021-12-09] MEDS: hydrALAZINE HCL 50 MG TAB PO SCH (20:03)
[2021-12-09] MEDS ORDERED: ATORVASTATIN 40 MG TAB PO SCH (21:00)
[2021-12-10] MEDS ORDERED: LEVOTHYROXINE 50 MCG TAB PO SCH (06:30)
[2021-12-10 08:58] LABS: Calcium 8.8 mg/dL (8.4-10.2); Potassium 3.7 mmol/L (3.5-5.1)
[2021-12-10] MEDS ORDERED: HEPARIN SODIUM,PORCINE/PF 5,000 UNIT/0.5 ML SYRINGE SQ SCH (09:00)
[2021-12-10] MEDS ORDERED: THIAMINE 100 MG TAB PO SCH (09:00)
[2021-12-10] MEDS ORDERED: FAMOTIDINE 20 MG/2 ML VIAL IV SCH (09:00)
[2021-12-10] MEDS ORDERED: FAMOTIDINE 20 MG TAB PO SCH (09:00)
[2021-12-10] MEDS: levETIRAcetam 500 MG TAB PO SCH (09:13)
[2021-12-10] MEDS: ACETAMINOPHEN TAB 500 MG TAB PO SCH ×2 (09:13→17:24)
[2021-12-10] MEDS: amLODIPine 5 MG TAB PO SCH (09:13)
[2021-12-10] MEDS: DONEPEZIL 10 MG TAB PO SCH (09:13)
[2021-12-10] MEDS: hydrALAZINE HCL 50 MG TAB PO SCH (09:14)
[2021-12-10] MEDS: LOSARTAN 50 MG TAB PO SCH (09:14)
[2021-12-10] MEDS ORDERED: ALPRAZolam 0.25 MG TAB PO STA (09:31)
[2021-12-10 11:25] VITALS: PULSE 77; RESP 20
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
[2021-12-10 15:02] VITALS: BP 140/60
[2021-12-10] MEDS: DEXTROSE 5%-0.45% NACL 1,000 ML IV SCH (15:13)
[2021-12-10 16:23] VITALS: TEMP 97.8
[2021-12-10] MEDS ORDERED: hydrALAZINE HCL 50 MG TAB PO SCH (21:00)
--- NOTE | 2021-12-11 01:30 | P.DS ---
Providers Date of admission: 12/08/21 23:09 Attending physician: Johanna Goldstein Consults: 12/08/21 23:03 Consult Physician Routine Consulting Provider: Elizabeth Floyd Consult Reason/Comments: sz Do you want consulting provider notified?: Yes Primary care physician: Stated None Hospital Course: Diagnoses Breakthrough seizure history of seizure, was not on seizure medication prior to hospitalization COPD, no exacerbation Hyperlipidemia Hypertension Sleep apnea on CPAP/BiPAP Hypothyroidism Hospital course: This is a pleasant 81 years old male with past medical history of COPD, Hyperlipidemia, Hypertension, Seizure Disorder, Sleep Apnea/CPAP/BIPAP, hypothyroidism Patient states he came because he had a seizure at home and his called EMS. Patient states he has history of seizure but is not on seizure medication for more than 6 months. He has been evaluated by neurologist, workup was unremarkable including CT and MRI of the brain. Patient was started on Keppra. Patient remained stable and the neurologist clear him for discharge from yesterday however he was kept overnight to monitor control his blood pressure. On the day of discharge patient was asymptomatic, fully awake and oriented, no chest pain or dyspnea. No abdominal pain or vomiting or diarrhea. No fever. Patient tolerating diet well Today his blood pressure were checked several times and ensured stabilization prior to discharge. his pressure upon discharge is 140/60 on Norvasc 5 mg and hydralazine 50 mg twice a day, patient was instructed to keep monitoring his blood pressure and he agrees. Creatinine is stable 1.3 upon discharge baseline about 1.0-1.3. Patient was instructed to follow up with road cutter upon discharge and he agrees. Patient was recommended to be discharged today in one way or another as he stated. Patient is cleared for discharge by neurologist on Keppra 500 mg twice a day. Problems and management plan were discussed with the patient and he verbalized understanding and acceptance Patient was found stable and can be discharged home however he needs follow-up as an outpatient. Patient was instructed to follow up with PCP Dr. Whitley within one week and patient agrees Patient was instructed to follow up with road cutter Dr. Ramirez in 1 week and instructed to follow up with a neurologist Dr. Heranndez or Dr. Bonnie Schilling in 1 week after discharge and he agrees. Paper paper prescription provided for the patient upon discharge Physical exam Gen: patient is a AAOx3, no distress CVS: S1-S2, RRR, no murmur Lungs: B/L CTA, no wheezing Abdomen: soft, no distention, no tenderness, positive bowel sounds Extremity: no leg edema or induration Time spent more than 35 minutes Plan - Discharge Summary New Discharge Prescriptions: New levETIRAcetam [Keppra] 500 mg PO Q12HR #60 tab amLODIPine [Norvasc] 5 mg PO DAILY #30 tab hydrALAZINE HCL [Apresoline] 50 mg PO BID #60 tab Continue Multivitamins, Thera [Multivitamin (formulary)] 1 tab PO DAILY Levothyroxine Sodium [Synthroid] 50 mcg PO DAILY Atorvastatin [Lipitor] 40 mg PO HS Acetaminophen [Tylenol Arthritis] 1,300 mg PO TID Albuterol Sulfate [Ventolin HFA] 2 puff INHALATION RT-Q4H PRN PRN Reason: Shortness Of Breath Magnesium 250 mg PO DAILY Umeclidinium Brm/Vilanterol Tr [Anoro Ellipta 62.5-25 Mcg INH] 1 puff INHALATION RT-DAILY Losartan Potassium [Cozaar] 100 mg PO DAILY Olopatadine HCl 1 spr EA NOSTRIL BID PRN PRN Reason: Allergy Symptoms traMADol HCL 50 mg PO Q12H PRN PRN Reason: Pain Donepezil 23mg 23 mg PO DAILY Discharge Medication List Atorvastatin [Lipitor] 40 mg PO HS 09/15/15 [History] Levothyroxine Sodium [Synthroid] 50 mcg PO DAILY 09/15/15 [History] Multivitamins, Thera [Multivitamin (formulary)] 1 tab PO DAILY 09/15/15 [History] Acetaminophen [Tylenol Arthritis] 1,300 mg PO TID 02/10/21 [History] Losartan Potassium [Cozaar] 100 mg PO DAILY 02/10/21 [History] Magnesium 250 mg PO DAILY 02/10/21 [History] Umeclidinium Brm/Vilanterol Tr [Anoro Ellipta 62.5-25 Mcg INH] 1 puff INHALATION RT-DAILY 02/10/21 [History] Albuterol Sulfate [Ventolin HFA] 2 puff INHALATION RT-Q4H PRN 12/08/21 [History] Donepezil 23mg 23 mg PO DAILY 12/08/21 [History] Olopatadine HCl 1 spr EA NOSTRIL BID PRN 12/08/21 [History] traMADol HCL 50 mg PO Q12H PRN 12/08/21 [History] amLODIPine [Norvasc] 5 mg PO DAILY #30 tab 12/10/21 [Rx] hydrALAZINE HCL [Apresoline] 50 mg PO BID #60 tab 12/10/21 [Rx] levETIRAcetam [Keppra] 500 mg PO Q12HR #60 tab 12/10/21 [Rx] Follow up Appointment(s)/Referral(s): Jose Marx DO [Doctor of Osteopathic Medicine] - 1-2 days (Office closed. Please call to schedule follow up.) Liban Hernandez MD [Medical Doctor] - 1 Week (Neurologist. Office closed. Please call to schedule follow up.) Ahsan Bill DO [STAFF PHYSICIAN] - 1 Week (Kidney Doctor. Office closed. Please call to schedule follow up.) Patient Instructions/Handouts: Seizure/Epilepsy Discharge Instructions & Follow-Up, Chronic Hypertension (DC) Activity/Diet/Wound Care/Special Instructions: heart healthy diet activity is restricted till you see your doctor Discharge Disposition: HOME SELF-CARE
== END 2021-12-10 17:12 | disposition home or self-care (01) ==
LOC: EC 20:49 → 3SCARD 23:09
PROVIDERS: ADMIT Internal Medicine; ATTEND Internal Medicine
DX: G40.909 Epilepsy, unspecified, not intractable, without status epilepticus (principal); J44.9 Chronic obstructive pulmonary disease, unspecified; I10 Essential (primary) hypertension; E03.9 Hypothyroidism, unspecified; E78.5 Hyperlipidemia, unspecified; G31.84 Mild cognitive impairment of uncertain or unknown etiology; R30.0 Dysuria; R79.89 Other specified abnormal findings of blood chemistry; G47.33 Obstructive sleep apnea (adult) (pediatric); R42 Dizziness and giddiness; G89.29 Other chronic pain; M54.50 Low back pain, unspecified; I45.10 Unspecified right bundle-branch block; K59.00 Constipation, unspecified; Z87.820 Personal history of traumatic brain injury; Z87.891 Personal history of nicotine dependence; Z71.9 Counseling, unspecified; Z79.899 Other long term (current) drug therapy; Z79.890 Hormone replacement therapy; Z88.0 Allergy status to penicillin
CPT/HCPCS: 96372 ×2; 96375; 96365; 99285; 36415; 93005; 80053; 80048; 80177; 83735; 85025; 81001; 70450; 70553; G0378 ×3; J1953; J1644 ×2; A9585

== ENCOUNTER 2022-05-27 10:17 | Inpatient (IN) | payer MEDICARE ==
--- NOTE | 2022-05-27 11:27 | CT ---
EXAMINATION TYPE: CT brain cspine wo con CT DLP: 1444.5 mGycm, Automated exposure control for dose reduction was used. DATE OF EXAM: 05/27/2022 11:15 AM COMPARISON: 12/08/2021 CLINICAL INDICATION:Male, 81 years old with history of Pain after fall; fall TECHNIQUE: Brain: Multiple axial CT images of the brain were obtained without IV contrast. Cspine: Axial CT images from the skull base to the inferior aspect of T2 we obtained without intraven ous contrast. Coronal and sagittal reformatted images were also reviewed. FINDINGS: Brain: Extra-axial spaces: No abnormal extra-axial fluid collections. Ventricular system: Dilatation in proportion to cerebral atrophy. Cerebral parenchyma: Cerebral atrophy. No acute intraparenchymal hemorrhage or mass effect. The fuchs -white junction is well differentiated. Scattered hypoattenuating areas are seen within the white mat ter. Cerebellum: Unremarkable. Mass effect: No evidence of midline shift. Intracranial vasculature: Atherosclerotic calcifications of the intracranial vessels. Soft tissues: Normal. Calvarium/osseous structures: No depressed skull fracture. Paranasal sinuses and mastoid air cells: Clear. Visualized orbits: Orbital contents are intact. Cervical spine: Fracture: None. Osseous structures: Fixation hardware at C4-C5 and C6. Hardware is intact. Multilevel degenerative di sc disease changes with endplate spurring and disc osteophyte complex's. Remote left clavicle fractur e. Nonfused posterior arch of C7. Vertebral alignment: Within normal limits. Spinal canal/Neural Foramina: Disc osteophyte complexes at C4-C5 with at least moderate spinal canal stenosis. Facet joint uncovertebral joint arthropathy scattered throughout the cervical spine with va rying degrees of neural foraminal stenosis. Neck soft tissues: Prevertebral soft tissues are within normal limits. Other: The airway is patent. The lung apices are clear. Ossification of the nuchal ligament is presen t. IMPRESSION: 1. No acute intracranial process. 2. Nonspecific white matter changes, likely secondary to chronic small vessel ischemic disease. 3. No evidence of cervical spine fracture. 4. Moderate spinal canal stenosis C4-C5 secondary to osteophyte.
--- NOTE | 2022-05-27 11:34 | CT ---
EXAMINATION TYPE: CT thor lumbar spine wo con CT DLP: 1801.7 mGycm, Automated exposure control for dose reduction was used. DATE OF EXAM: 05/27/2022 11:16 AM COMPARISON: Chest 04/23/2013 and 02/26/2019. CLINICAL INDICATION:Male, 81 years old with history of Pain after fall, fall TECHNIQUE: Axial images of the thoracic spine were obtained without contrast. Coronal and sagittal re formats were performed. FINDINGS: Normal alignment of the of the spine. There is transitional S1 vertebrae with the remainder of the S1-S2 disc. 2. Listhesis of L5 on S1. Multilevel disc degeneration changes are seen throughout the spine with ost eophyte formation. Mild wedging at T10-T12. T11 has acute fracture line seen on coronal imaging. There is 25% height los s. No evidence retropulsion. Irregularities in the cortex appreciated on series 404 image 31, image 3 5, image 38. Atherosclerosis of the arterial vasculature. IVC filter in place. Left renal cyst. Cholelithiasis. T1 2 vertebral body bony islands remote left clavicle fracture. IMPRESSION: 1. Suspected acute T11 compression fracture with subtle lucencies suggesting fracture lines. This ca n be confirmed with MRI. 2. No evidence of significant spinal canal neural foraminal stenosis. 3. Transitional S1 vertebrae with rudimentary S1-S2 disc 4. Grade 1 anterolisthesis of L5 and S1.
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
[2022-05-27] MEDS ORDERED: HYDROmorphone 1 MG/ML 1 ML SYRINGE IVP STA (12:10)
[2022-05-27] MEDS ORDERED: ONDANSETRON 4 MG/2 ML VIAL IVP PRN (14:34)
[2022-05-27] MEDS ORDERED: ACETAMINOPHEN TAB 325 MG TAB PO PRN (14:34)
[2022-05-27] MEDS ORDERED: NALOXONE 0.4 MG/ML 1 ML VIAL IV PRN (14:34)
[2022-05-27] MEDS ORDERED: HYDROmorphone 0.5 MG/0.5 ML SYRINGE IVP PRN (14:34)
[2022-05-27] MEDS ORDERED: DIPH,PERTUS(ACELL)TETVAC-LF 0.5 ML VIAL IM ONE (15:29)
[2022-05-27] MEDS ORDERED: ALBUTEROL NEBULIZED 2.5 MG/3 ML INHALATION PRN (16:31)
[2022-05-27] MEDS ORDERED: NON FORMULARY DRUG (Losartan Potassium [Cozaar] 100 MG Tablet) PO SCH (16:45)
[2022-05-27] MEDS ORDERED: levETIRAcetam 500 MG TAB PO SCH (16:45)
[2022-05-27] MEDS: DONEPEZIL 10 MG TAB PO SCH (20:41)
[2022-05-27] MEDS: ATORVASTATIN 40 MG TAB PO SCH (20:41)
[2022-05-27] MEDS: LACOSAMIDE 50 MG TABLET PO SCH (20:41)
[2022-05-27] MEDS: hydrALAZINE HCL 50 MG TAB PO SCH (20:41)
[2022-05-27] MEDS: HYDROmorphone 1 MG/ML 1 ML SYRINGE IVP PRN (20:46)
[2022-05-28] MEDS: HYDROmorphone 1 MG/ML 1 ML SYRINGE IVP PRN (05:02)
[2022-05-28] MEDS: LEVOTHYROXINE 50 MCG TAB PO SCH (05:02)
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
[2022-05-28] MEDS ORDERED: HYDROcodone/APAP 5-325MG 1 EACH TAB PO PRN (08:24)
[2022-05-28] MEDS: amLODIPine 5 MG TAB PO SCH (08:30)
[2022-05-28] MEDS: hydrALAZINE HCL 50 MG TAB PO SCH ×2 (08:30→21:18)
[2022-05-28] MEDS: LACOSAMIDE 50 MG TABLET PO SCH ×2 (08:30→21:18)
[2022-05-28] MEDS: MULTIVITAMINS, THERA 1 EACH TAB PO SCH (08:31)
[2022-05-28] MEDS: MAGNESIUM OXIDE 400 MG TAB PO SCH (08:31)
[2022-05-28] MEDS: HYDROcodone/APAP 10-325MG 1 EACH TAB PO PRN ×3 (08:35→21:18)
[2022-05-28] MEDS ORDERED: PANTOPRAZOLE 40 MG/10 ML VIAL IV SCH (09:00)
--- NOTE | 2022-05-28 09:03 | XR ---
EXAMINATION TYPE: XR clavicle LT DATE OF EXAM: 05/28/2022 COMPARISON: NONE HISTORY: Pain TECHNIQUE: 2 views submitted FINDINGS: There is marked deformity of the mid to distal clavicle suggestive of healed remote fractur e. No diagnostic evidence of acute displaced fracture. Diffuse osteopenia. Remote left-sided rib frac tures also suspected. Postsurgical changes overlying the cervical spine. IMPRESSION: 1. Marked deformity of the left mid and distal clavicle compatible with remote fracture. 2. Suspect multiple upper rib cage remote fractures.
[2022-05-28 09:09] LABS: African American GFR (CKD) 80.3 (60.0-200.0); Anion Gap 7.9 mmol/L (10.00-18.00); BUN/Creat Ratio 21.4 Ratio (12.00-20.00); Blood Urea Nitrogen 21.4 mg/dL (9.0-27.0); Calcium 8.8 mg/dL (8.7-10.3); Carbon Dioxide 28.1 mmol/L (20.0-27.5); Non-African American GFR(CKD) 69.3 (60.0-200.0); Potassium 4.1 mmol/L (3.5-5.5)
[2022-05-28 09:10] LABS: WBC 7.77 X 10*3/uL (4.50-10.00)
[2022-05-28] MEDS: GABAPENTIN 100 MG CAP PO SCH ×3 (09:10→21:18)
[2022-05-28] MEDS: methocarbamoL 750 MG TAB PO SCH ×4 (09:10→21:22)
[2022-05-28 09:11] LABS: Basophils # (A) 0.04 X 10*3/uL (0.00-0.10); Basophils % (A) 0.5 %; Eosinophils # (A) 0.12 X 10*3/uL (0.04-0.35); Eosinophils % (A) 1.5 %; HCT 40.8 % (39.6-50.0); HGB 13.4 g/dL (13.0-17.0); Immature Grans, Automated 0.6 %; Lymphocytes # (A) 1.84 X 10*3/uL (0.90-5.00); Lymphocytes % (A) 23.7 %; MCH 32.8 pg (27.0-32.0); MCHC 32.8 g/dL (32.0-37.0); Mean Platelet Volume 9.8 fL (9.5-12.2); Monocytes # (A) 0.64 X 10*3/uL (0.20-1.00); Monocytes % (A) 8.2 %; NRBC Per 100 WBC 0 /100 WBCS (0.0-0.0); Neutrophils # (A) 5.08 X 10*3/uL (1.80-7.70); Neutrophils % (A) 65.5 %; Platelet Count 150 X 10*3/uL (140-440); RBC 4.08 X 10*6/uL (4.40-5.60); RDW 13.2 % (11.5-14.5)
[2022-05-28] MEDS: FORMOTEROL FUMARATE 20 MCG/2 ML NEBU INHALATION SCH ×2 (10:06→21:16)
[2022-05-28] MEDS: IPRATROPIUM 0.5 MG/2.5 ML NEBU INHALATION SCH ×4 (10:06→21:16)
--- NOTE | 2022-05-28 12:07 | P.PN ---
Progress Note - Text Progress Note Date: 05/28/22 Patient seen this afternoon. PT has evaluated patient and report standby/minimal assist. Patient reports increase pain with activity. Prescription for TLSO brace provided to CM. Continue to encourage patient with mobility as tolerated.
[2022-05-28 13:14] VITALS: BMI 29.9
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
[2022-05-28] MEDS: DONEPEZIL 10 MG TAB PO SCH (21:18)
[2022-05-28] MEDS: ATORVASTATIN 40 MG TAB PO SCH (21:18)
[2022-05-29] MEDS: HYDROcodone/APAP 10-325MG 1 EACH TAB PO PRN ×2 (03:03→08:31)
[2022-05-29] MEDS: LEVOTHYROXINE 50 MCG TAB PO SCH (06:09)
[2022-05-29] MEDS ORDERED: PANTOPRAZOLE 40 MG TABLET PO SCH ×2 (07:30)
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
[2022-05-29] MEDS: hydrALAZINE HCL 50 MG TAB PO SCH (08:30)
[2022-05-29] MEDS: MULTIVITAMINS, THERA 1 EACH TAB PO SCH (08:30)
[2022-05-29] MEDS: methocarbamoL 750 MG TAB PO SCH ×2 (08:30→13:11)
[2022-05-29] MEDS: GABAPENTIN 100 MG CAP PO SCH (08:30)
[2022-05-29] MEDS: MAGNESIUM OXIDE 400 MG TAB PO SCH (08:31)
[2022-05-29] MEDS: LACOSAMIDE 50 MG TABLET PO SCH (08:31)
[2022-05-29] MEDS: amLODIPine 5 MG TAB PO SCH (08:31)
--- NOTE | 2022-05-29 08:54 | P.PN ---
Subjective Progress Note Date: 05/29/22 Principal diagnosis: Fall with trauma Back pain Patient seen and examined this morning. Patient is laying supine in bed. He states his pain is managed on current regimen. Patient was very angry during assessment this morning, when asked why he stated that he did not want to be in the hospital any longer. Patient is demanding to be discharged today, explained to patient that we need to have documentation by PT/OT that patient is safe to return home. Patient denies any numbness healing to bilateral lower extremities. He denies any fever/chills, nausea/vomiting, or chest pain. Objective - Vital Signs Vital signs: Vital Signs Temp 97.5 F L 05/29/22 02:00 Pulse 81 05/29/22 02:00 Resp 17 05/29/22 02:00 BP 150/66 05/29/22 02:00 Pulse Ox 98 05/29/22 02:00 FiO2 Intake & Output 05/28/22 05/29/22 05/29/22 18:59 06:59 18:59 Intake Total 240 Output Total 225 Balance -225 240 Weight 81.647 kg Intake: Oral 240 Output: Urine 225 Other: Voiding Method Urinal # Voids 2 - Exam Physical Examination General: The patient is awake and alert, in no acute distress Skin: Skin is warm and dry with no obvious rashes or lesions. Hairy patches a bsent, no dorsal skin dimples, no cafe au lait spots, and no surgical incisions. Eye: Pupils are equal, round and reactive to light, extra-ocular movements are intact; there is normal conjunctiva bilaterally. Neck: The neck is supple, there is no tenderness and ROM intact. Cardiovascular: There is a regular rate and rhythm. No murmur, rub or gallop is appreciated. Respiratory: Lungs are clear to auscultation, respirations are non-labored, breath sounds are equal. Gastrointestinal: Soft, non-distended, non-tender abdomen. Back: There is no tenderness to palpation in the midline, paralumbar, parathoracic or buttocks region. There is no obvious deformity . Musculoskeletal: ROM limited secondary to pain and stiffness from surgical procedure. Muscle strength in all major muscle groups of bilateral upper extremities 5/5, bilateral lower extremities 4/5. Neurological: CN 2-12 intact. There are no obvious motor or sensory deficits. Movement and coordination equal and intact. Sensory exam to light touch intact C5-T1 and intact from L2-S1. Reflexes 2/4 in bilateral upper and lower extremities. Negative Hoffmans, babinski, and clonus signs. Psychiatric: Cooperative, appropriate mood & affect, normal judgment. - Labs CBC & Chem 7: 05/28/22 03:50 05/28/22 03:50 Labs: Abnormal Lab Results - Last 24 Hours (Table) 05/28/22 05/28/22 Range/Units 03:50 03:50 RBC 4.08 L (4.40-5.60) X 10*6/uL MCV 100.0 H (80.0-97.0) fL MCH 32.8 H (27.0-32.0) pg Immature Gran # 0.05 H (0.00-0.04) X 10*3/uL Carbon Dioxide 28.1 H (20.0-27.5) mmol/L Anion Gap 7.90 L (10.00-18.00) mmol/L BUN/Creatinine Ratio 21.40 H (12.00-20.00) Ratio Assessment and Plan Assessment: T11 vertebral compression fracture T11-T12 facet fractures Fall off ladder with blunt head trauma Complex medical patient Plan: -Appreciate service loss control consultant and team management. -Activity: Ambulate QID, OOB all meals, up and about, limit lifting bending twisting to less than 5 lbs. Use walker or cane if needed for stability. -Daily PT/OT, increase ambulation strength and balance. - TLSO brace for up and about -Pain control: oral pain meds as needed -Meds: Reviewed -GI ppx: senna, Miralax -DVT PPX: mechanical, heparin -Hygiene: daily showers -Encourage IS 10x/hr -We will see how he does with a TLSO brace and getting up, he is fairly painful in his back. We have asked medical management as well as trauma to see the patient and evaluate him. -Dispo: Possible discharge home with homecare within the next 24-48hrs
[2022-05-29] MEDS: FORMOTEROL FUMARATE 20 MCG/2 ML NEBU INHALATION SCH (09:18)
[2022-05-29] MEDS: IPRATROPIUM 0.5 MG/2.5 ML NEBU INHALATION SCH ×3 (09:18→16:18)
[2022-05-29 14:51] VITALS: BP 157/76; PULSE 90; RESP 17; TEMP 97.9
--- NOTE | 2022-05-29 14:53 | P.DS ---
Providers Date of admission: 05/27/22 14:32 Expected date of discharge: 05/29/22 Attending physician: Kaden Durand DO Consults: 05/27/22 14:34 Consult Physician Urgent Consulting Provider: Jose Marx Reason/Comments: Medical management Do you want consulting provider notified?: Yes Primary care physician: Jose Marx [facility] Course: Hospital Course: The patient was evaluated and found to have the diagnosis of T11 vertebral compression fracture and T11-T12 facet fractures. While on the floor they worked with physical therapy, occupational therapy and nursing to enhance their recovery experience. Their pain was well controlled through their stay and they were started on appropriate medications, DVT ppx modalities, activity and dietary needs. Daily labs were monitored closely. Medicine as well as other consulting services have made their input and have helped with our team approach and multidisciplinary care. PT milestones have been met and passed and they have made the recommendation of home with homecare for this patient and treating providers agree with this care path. The patient will be discharged home with appropriate medications, instructions and follow-up information and in stable condition. Patient Condition at Discharge: Stable Plan - Discharge Summary Discharge Rx Participant: Yes New Discharge Prescriptions: New HYDROcodone/APAP 10-325MG [[place] 10-325] 1 tab PO Q4-6H PRN #56 tab PRN Reason: Pain methocarbamoL [Robaxin-750] 750 mg PO TID PRN #60 tab PRN Reason: Muscle Spasm Sennosides/Docusate Sodium [Senna Plus 8.6-50 mg Tablet] 1 each PO DAILY PRN #20 tablet PRN Reason: Constipation Continue Multivitamins, Thera [Multivitamin (formulary)] 1 tab PO DAILY Levothyroxine Sodium [Synthroid] 50 mcg PO DAILY Atorvastatin [Lipitor] 40 mg PO HS Albuterol Sulfate [Ventolin HFA] 2 puff INHALATION RT-Q4H PRN PRN Reason: Shortness Of Breath amLODIPine [Norvasc] 5 mg PO DAILY #30 tab hydrALAZINE HCL [Apresoline] 50 mg PO BID #60 tab Lacosamide [Vimpat] 100 mg PO BID Magnesium 250 mg PO DAILY Umeclidinium Brm/Vilanterol Tr [Anoro Ellipta 62.5-25 Mcg INH] 1 puff INHALATION RT-DAILY Donepezil 23mg 23 mg PO HS Discharge Medication List Atorvastatin [Lipitor] 40 mg PO HS 09/15/15 [History] Levothyroxine Sodium [Synthroid] 50 mcg PO DAILY 09/15/15 [History] Multivitamins, Thera [Multivitamin (formulary)] 1 tab PO DAILY 09/15/15 [History] Magnesium 250 mg PO DAILY 02/10/21 [History] Umeclidinium Brm/Vilanterol Tr [Anoro Ellipta 62.5-25 Mcg INH] 1 puff INHALATION RT-DAILY 02/10/21 [History] Albuterol Sulfate [Ventolin HFA] 2 puff INHALATION RT-Q4H PRN 12/08/21 [History] Donepezil 23mg 23 mg PO HS 12/08/21 [History] amLODIPine [Norvasc] 5 mg PO DAILY #30 tab 12/10/21 [Rx] hydrALAZINE HCL [Apresoline] 50 mg PO BID #60 tab 12/10/21 [Rx] Lacosamide [Vimpat] 100 mg PO BID 05/27/22 [History] HYDROcodone/APAP 10-325MG [[place] 10-325] 1 tab PO Q4-6H PRN #56 tab 05/29/22 [Rx] Sennosides/Docusate Sodium [Senna Plus 8.6-50 mg Tablet] 1 each PO DAILY PRN #20 tablet 05/29/22 [Rx] methocarbamoL [Robaxin-750] 750 mg PO TID PRN #60 tab 05/29/22 [Rx] Follow up Appointment(s)/Referral(s): Jose Marx DO [Primary Care Provider] - 1 Week Vandana Ascencio NPC [Nurse Practitioner] - 06/06/22 9:20 am [facility] [NON-STAFF] - As Needed Kelly Landeros [NON-STAFF] - As Needed (TLSO back brace) Patient Instructions/Handouts: Vertebral Compression Fracture (DC), Pain Management (DC) Discharge Disposition: HOME WITH HOME HEALTH SERVICES
== END 2022-05-29 16:23 | disposition home health service (06) | DRG 543 ==
LOC: SUPCPDRO 10:17 → EC 10:17 → 4SSUR 14:32
PROVIDERS: ADMIT Orthopaedic Surgery; ATTEND Orthopaedic Surgery
DX: M48.54XA Collapsed vertebra, not elsewhere classified, thoracic region, initial encounter for fracture (principal); S22.088A Other fracture of T11-T12 vertebra, initial encounter for closed fracture; S42.002A Fracture of unspecified part of left clavicle, initial encounter for closed fracture; S09.90XA Unspecified injury of head, initial encounter; M48.02 Spinal stenosis, cervical region; M25.78 Osteophyte, vertebrae; S01.01XA Laceration without foreign body of scalp, initial encounter; J44.9 Chronic obstructive pulmonary disease, unspecified; G40.909 Epilepsy, unspecified, not intractable, without status epilepticus; F03.90 Unspecified dementia, unspecified severity, without behavioral disturbance, psychotic disturbance, mood disturbance, and anxiety; W11.XXXA Fall on and from ladder, initial encounter; Y92.018 Other place in single-family (private) house as the place of occurrence of the external cause; I10 Essential (primary) hypertension; E78.5 Hyperlipidemia, unspecified; E03.9 Hypothyroidism, unspecified; R41.3 Other amnesia; G47.33 Obstructive sleep apnea (adult) (pediatric); G89.29 Other chronic pain; M54.50 Low back pain, unspecified; K59.00 Constipation, unspecified; Z88.1 Allergy status to other antibiotic agents; Z88.8 Allergy status to other drugs, medicaments and biological substances; Z79.899 Other long term (current) drug therapy; Z79.890 Hormone replacement therapy; Z87.820 Personal history of traumatic brain injury; Z87.891 Personal history of nicotine dependence; Y92.009 Unspecified place in unspecified non-institutional (private) residence as the place of occurrence of the external cause; Z87.19 Personal history of other diseases of the digestive system
CPT/HCPCS: 12002; 70450; 72125; 72128; 72131; 80048; 85025; 94640; 96374; 99285

== ENCOUNTER 2022-05-31 12:25 | Inpatient (IN) | payer MEDICARE ==
[2022-05-31] MEDS ORDERED: HYDROmorphone 1 MG/ML 1 ML SYRINGE IVP STA (12:49)
[2022-05-31] MEDS ORDERED: KETOROLAC 15 MG/ML 1 ML VIAL IVP STA (12:49)
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
--- NOTE | 2022-05-31 14:57 | CT ---
EXAMINATION TYPE: CT hip LT wo con DATE OF EXAM: 05/31/2022 COMPARISON: None HISTORY: Left hip pain CT DLP: 553.1 mGycm Automated exposure control for dose reduction was used. FINDINGS: There is a soft tissue fat-containing mass. In the anterior soft tissue musculature with a single sep tation measuring 3.2 cm. There is concentric narrowing of the hip joint. No erosive change. Vascular calcifications are seen. There is a questionable linear lucency on sagittal image 40 along the cortex corresponding to a slig ht cortical offset of the posterior femoral neck. There also is increased sclerosis of the femoral he ad. IMPRESSION: 1. QUESTION A LINEAR LUCENCY ON AXIAL IMAGE 30 AND SAGITTAL IMAGE 40 WITHIN THE POSTERIOR FEMORAL NEC K. COULD NOT EXCLUDE A HAIRLINE FRACTURE. IF THE PATIENT IS HAVING DIFFICULTY WITH WEIGHTBEARING THEN MRI MAY BE REQUIRED TO CONFIRM DIAGNOSIS.
[2022-05-31] MEDS ORDERED: NALOXONE 0.4 MG/ML 1 ML VIAL IV PRN (17:34)
[2022-05-31] MEDS ORDERED: ONDANSETRON 4 MG/2 ML VIAL IVP PRN (17:34)
[2022-05-31] MEDS ORDERED: HYDROmorphone 0.5 MG/0.5 ML SYRINGE IVP PRN (17:34)
[2022-05-31] MEDS ORDERED: SODIUM CHLORIDE 0.9% 1,000 ML IV STA (17:46)
[2022-05-31] MEDS: HYDROmorphone 1 MG/ML 1 ML SYRINGE IVP PRN (18:08)
[2022-05-31 18:30] LABS: Basophils % (A) 0 %; Eosinophils # (A) 0.2 k/uL (0-0.7); Eosinophils % (A) 2 %; HCT 38.4 % (39.0-53.0); Lymphocytes # (A) 1.7 k/uL (1.0-4.8); Lymphocytes % (A) 23 %; MCH 32.8 pg (25.0-35.0); MCHC 33.8 g/dL (31.0-37.0); MCV 97.1 fL (80.0-100.0); Mean Platelet Volume 7.7; Monocytes # (A) 0.6 k/uL (0-1.0); Monocytes % (A) 7 %; Neutrophils # (A) 4.8 k/uL (1.3-7.7); Neutrophils % (A) 65 %; Platelet Count 147 k/uL (150-450); RBC 3.95 m/uL (4.30-5.90); RDW 12.8 % (11.5-15.5); WBC 7.5 k/uL (3.8-10.6)
[2022-05-31 18:44] LABS: ALT 21 U/L (4-49); AST 26 U/L (17-59); African American GFR (CKD) 86 (>60 ml/min/1.73 sqM); Albumin 3.7 g/dL (3.5-5.0); Albumin/Globulin Ratio 1.7; Alkaline Phosphatase 68 U/L (38-126); Anion Gap 4 mmol/L; Blood Urea Nitrogen 24 mg/dL (9-20); Calcium 8.9 mg/dL (8.4-10.2); Carbon Dioxide 29 mmol/L (22-30); Chloride 106 mmol/L (98-107); Globulin 2.2 g/dL; Glucose 103 mg/dL (74-99); Non-African American GFR(CKD) 74 (>60 ml/min/1.73 sqM); Potassium 3.8 mmol/L (3.5-5.1); Sodium 139 mmol/L (137-145); Total Protein 5.9 g/dL (6.3-8.2)
--- NOTE | 2022-05-31 19:11 | XR ---
EXAMINATION TYPE: XR chest 1V portable DATE OF EXAM: 05/31/2022 COMPARISON: 02/23/2021 INDICATION: Pneumonia TECHNIQUE: Single frontal view of the chest is obtained. FINDINGS: The heart size is normal. The pulmonary vasculature is normal. The lungs are clear. IMPRESSION: 1. No acute pulmonary process.
[2022-05-31] MEDS: HEPARIN SODIUM,PORCINE/PF 5,000 UNIT/0.5 ML SYRINGE SQ SCH (21:52)
[2022-05-31 21:53] LABS: Appearance,Urine Clear (Clear); Bilirubin,Urine Negative (Negative); Blood,Urine Negative (Negative); Color,Urine Yellow; Glucose,Urine (UA) Negative (Negative); Ketones,Urine Negative (Negative); Leukocyte Esterase,Urine Negative (Negative); Mucus,Urine Occasional /hpf; Nitrite,Urine Negative (Negative); PH, Urine 5.5 (5.0-8.0); Protein,Urine 1+ (Negative); RBC,Urine 1 /hpf (0-5); Specific Gravity,Urine 1.023 (1.001-1.035); Urobilinogen,Urine <2.0 mg/dL (<2.0); WBC,Urine 1 /hpf (0-5)
[2022-05-31] MEDS ORDERED: HYDROcodone/APAP 10-325MG 1 EACH TAB PO PRN (23:52)
[2022-05-31] MEDS ORDERED: ALBUTEROL NEBULIZED 2.5 MG/3 ML INHALATION PRN (23:52)
[2022-05-31] MEDS ORDERED: methocarbamoL 750 MG TAB PO PRN (23:52)
--- NOTE | 2022-06-01 00:27 | HP ---
HISTORY AND PHYSICAL CHIEF COMPLAINT: Back pain, weakness, and tremors. HISTORY OF PRESENT ILLNESS: This 81-year-old gentleman with a past medical history of multiple medical problems, hypertension, hyperlipidemia, seizure disorder, recently had back surgery by Dr. Durand. The patient is apparently recommended for ECF, but the patient is not willing, the patient went home. The patient had a fall and now the patient is complaining of hip pain and multiple other symptomatology, and the patient is admitted for further evaluation and treatment. There is no history of any fever, rigors, or chills at this time. PAST MEDICAL HISTORY: Recent back surgery, COPD. The rest of the history and the rest of the chart is also reviewed. HOME MEDICATIONS: Reviewed and include Robaxin, dose and rest of the medication noted. ALLERGIES: Reviewed and include amoxicillin. FAMILY HISTORY: No history of heart diseases or strokes in the family. SOCIAL HISTORY: Previous history of smoking. REVIEW OF SYSTEMS: A 14-point review of systems is negative except as mentioned earlier. PHYSICAL EXAMINATION: VITAL SIGNS: Pulse 82, blood pressure ntd, respirations 18. HEENT: Conjunctivae normal. NECK: No JVD. CARDIOVASCULAR: S1, S2. RESPIRATIONS: Breath sounds diminished at the bases. No rhonchi. No crackles. ABDOMEN: Soft, nontender. LEGS: Slightly painful movements. Brace present. NERVOUS SYSTEM: No focal deficits. SKIN: No ulcer, rash, or bleeding. JOINTS: No active deforming arthropathy. LABORATORY DATA: Not available. ASSESSMENT: 1. Fall and gait dysfunction. 2. Recent back surgery. 3. Rule out hip fracture. 4. Rule out urinary tract infection. 5. Hypertension. 6. Hyperlipidemia. 7. Chronic obstructive pulmonary disease. 8. Seizure disorder. 9. Sleep apnea. 10.Multiple medical issues. 11.Gait dysfunction. RECOMMENDATIONS: In this 81-year-old gentleman, who presented with multiple complex medical issues, we will monitor the patient closely. Continue with current medications and symptomatic treatment. Otherwise, I would recommend PT/OT evaluation and possible ECF rehab. DVT prophylaxis. Orthopedic consultation regarding the CAT scan to rule out the possibility of any hip fractures. Otherwise, prognosis is guarded. Further recommendations to follow. See orders for further details. MMODL / IJN: [id number] / [facility]
[2022-06-01] MEDS: HYDROmorphone 1 MG/ML 1 ML SYRINGE IVP PRN ×2 (03:50→15:48)
[2022-06-01] MEDS: LEVOTHYROXINE 50 MCG TAB PO SCH (06:30)
[2022-06-01 07:58] LABS: African American GFR (CKD) >90 (>60 ml/min/1.73 sqM); Anion Gap 6 mmol/L; Blood Urea Nitrogen 21 mg/dL (9-20); Calcium 8.3 mg/dL (8.4-10.2); Carbon Dioxide 28 mmol/L (22-30); Chloride 106 mmol/L (98-107); Glucose 93 mg/dL (74-99); Non-African American GFR(CKD) 80 (>60 ml/min/1.73 sqM); Potassium 3.8 mmol/L (3.5-5.1); Sodium 140 mmol/L (137-145)
[2022-06-01 08:07] LABS: Basophils % (A) 0 %; Eosinophils # (A) 0.1 k/uL (0-0.7); Eosinophils % (A) 2 %; HCT 36.8 % (39.0-53.0); HGB 12.5 gm/dL (13.0-17.5); Lymphocytes # (A) 1.6 k/uL (1.0-4.8); Lymphocytes % (A) 24 %; MCHC 33.9 g/dL (31.0-37.0); MCV 97.6 fL (80.0-100.0); Mean Platelet Volume 8.1; Monocytes # (A) 0.5 k/uL (0-1.0); Monocytes % (A) 8 %; Neutrophils # (A) 4.3 k/uL (1.3-7.7); Neutrophils % (A) 63 %; Platelet Count 143 k/uL (150-450); RBC 3.77 m/uL (4.30-5.90); RDW 12.9 % (11.5-15.5); WBC 6.9 k/uL (3.8-10.6)
[2022-06-01] MEDS: FORMOTEROL FUMARATE 20 MCG/2 ML NEBU INHALATION SCH ×2 (08:54→20:52)
[2022-06-01] MEDS: IPRATROPIUM 0.5 MG/2.5 ML NEBU INHALATION SCH ×4 (08:54→20:51)
[2022-06-01] MEDS ORDERED: SENNOSIDES-DOCUSATE SODIUM 1 EACH TAB PO PRN (09:00)
[2022-06-01] MEDS: amLODIPine 5 MG TAB PO SCH (09:13)
[2022-06-01] MEDS: hydrALAZINE HCL 50 MG TAB PO SCH ×2 (09:13→20:27)
[2022-06-01] MEDS: LACOSAMIDE 50 MG TABLET PO SCH ×2 (09:13→20:27)
[2022-06-01] MEDS: MULTIVITAMINS, THERA 1 EACH TAB PO SCH (09:14)
[2022-06-01] MEDS: MAGNESIUM OXIDE 400 MG TAB PO SCH (09:14)
[2022-06-01] MEDS: HEPARIN SODIUM,PORCINE/PF 5,000 UNIT/0.5 ML SYRINGE SQ SCH ×2 (09:14→20:28)
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
[2022-06-01] MEDS: KETOROLAC 15 MG/ML 1 ML VIAL IVP PRN (20:27)
[2022-06-01] MEDS: DONEPEZIL 10 MG TAB PO SCH (20:27)
[2022-06-01] MEDS: ATORVASTATIN 40 MG TAB PO SCH (20:27)
--- NOTE | 2022-06-02 05:39 | PN ---
PROGRESS NOTE DATE OF SERVICE: 06/01/2022 SUBJECTIVE: This 81-year-old gentleman, who was admitted with fall and gait dysfunction, also had a history of recent back surgery. The patient is willing to go to rehab at this time. The left hip reports possible hairline fracture. Recommend MRI and pain management. No chest pain. No palpitations. No fever. OBJECTIVE: VITAL SIGNS: Pulse is 90, blood pressure is 168/81, respiration 18. HEENT: Conjunctivae normal. NECK: No JVD. CARDIOVASCULAR: S1, S2. RESPIRATION: Breath sounds diminished at the bases. ABDOMEN: Soft. NERVOUS SYSTEM: No focal deficits. LABORATORY DATA: Hemoglobin 12.4. The rest of the labs are noted. ASSESSMENT: 1. Fall and gait dysfunction. 2. Rule out left hip fracture. 3. Recent back surgery. 4. Rule out acute urinary tract infection. 5. Hypertension. 6. Hyperlipidemia. 7. Chronic obstructive pulmonary disease. 8. Seizure disorder. 9. Sleep apnea. 10.Multiple medical issues. 11.Gait dysfunction. RECOMMENDATIONS: I recommend to continue current management and closely follow with Orthopedic surgery. MRI has been ordered. Continue the rest of medications. Prognosis guarded. Further recommendations to follow. See orders for details. MMODL / IJN: [id number] /
[2022-06-02] MEDS: LEVOTHYROXINE 50 MCG TAB PO SCH (05:59)
[2022-06-02] MEDS: FORMOTEROL FUMARATE 20 MCG/2 ML NEBU INHALATION SCH ×2 (07:19→19:07)
[2022-06-02] MEDS: IPRATROPIUM 0.5 MG/2.5 ML NEBU INHALATION SCH ×4 (07:19→19:07)
[2022-06-02] MEDS: LACOSAMIDE 50 MG TABLET PO SCH ×2 (08:17→20:48)
[2022-06-02] MEDS: HEPARIN SODIUM,PORCINE/PF 5,000 UNIT/0.5 ML SYRINGE SQ SCH ×2 (08:17→20:49)
[2022-06-02] MEDS: MAGNESIUM OXIDE 400 MG TAB PO SCH (08:17)
[2022-06-02] MEDS: amLODIPine 5 MG TAB PO SCH (08:17)
[2022-06-02] MEDS: hydrALAZINE HCL 50 MG TAB PO SCH ×2 (08:17→20:49)
[2022-06-02] MEDS: MULTIVITAMINS, THERA 1 EACH TAB PO SCH (08:17)
[2022-06-02 10:48] LABS: Basophils # (A) 0.04 X 10*3/uL (0.00-0.10); Basophils % (A) 0.7 %; Eosinophils # (A) 0.19 X 10*3/uL (0.04-0.35); Eosinophils % (A) 3.2 %; HCT 37.3 % (39.6-50.0); Immature Grans, Automated 0.5 %; Lymphocytes % (A) 28.4 %; MCH 32.4 pg (27.0-32.0); MCHC 32.2 g/dL (32.0-37.0); MCV 100.8 fL (80.0-97.0); Mean Platelet Volume 10.4 fL (9.5-12.2); Monocytes # (A) 0.75 X 10*3/uL (0.20-1.00); Monocytes % (A) 12.5 %; NRBC Per 100 WBC 0 /100 WBCS (0.0-0.0); Neutrophils # (A) 3.28 X 10*3/uL (1.80-7.70); Neutrophils % (A) 54.7 %; Platelet Count 164 X 10*3/uL (140-440); RDW 12.7 % (11.5-14.5); WBC 5.99 X 10*3/uL (4.50-10.00)
[2022-06-02] MEDS: KETOROLAC 15 MG/ML 1 ML VIAL IVP PRN (11:00)
[2022-06-02] MEDS: METOPROLOL TARTRATE 12.5 MG TAB PO SCH ×2 (11:01→20:48)
[2022-06-02 11:32] LABS: African American GFR (CKD) 91.2 (60.0-200.0); Albumin 3.6 g/dL (3.8-4.9); Anion Gap 10.9 mmol/L (10.00-18.00); BUN/Creat Ratio 23.33 Ratio (12.00-20.00); Carbon Dioxide 27.1 mmol/L (20.0-27.5); Globulin 1.8 g/dL (1.6-3.3); Non-African American GFR(CKD) 78.7 (60.0-200.0); Potassium 3.8 mmol/L (3.5-5.5); Total Bilirubin 0.6 mg/dL (0.30-1.20); Total Protein 5.4 g/dL (6.2-8.2)
--- NOTE | 2022-06-02 14:13 | P.PN ---
Progress Note - Text Progress Note Date: 06/02/22 MRI reviewed. Awaiting final report. No evidence of hip fracture on MRI at this time. WBAT Pt/OT Pain control No orthopedic surgical intervention
--- NOTE | 2022-06-02 14:20 | MR ---
EXAMINATION TYPE: MR hip LT wo con DATE OF EXAM: 06/02/2022 COMPARISON: CT 05/31/2022 HISTORY: 81-year-old male Left hip pain S/P fall, evaluate for possible fracture. TECHNIQUE: Multiplanar, multisequence images of the left hip were obtained without IV contrast. FINDINGS: Prominent lateral sided soft tissue swelling is bruising throughout the subcutaneous tissues. There is increased signal along the left abductor and left gluteus gómez musculature suggesting con tusions or muscle strains. 1 cm intrasubstance tear at the origin of the left hamstrings. The rectus femoris origins are intact. Iliopsoas and gluteal insertions appear intact. The iliopsoas insertions appear intact as do the rec tus femoris. Small effusions involving the right-sided gluteus medius and minimus bursa on the right. The hips appear symmetric and intact. Small to moderate left joint effusion probably reactive. No tello dence for hip fracture or AVN. No additional pelvic or sacral fracture seen. SI joints appear symmetr ic and intact as does the pubic symphysis. Prostate gland enlargement at 5.7 cm wide. Circumferential bladder wall thickening probably due to ch ronic lateral hypertrophy. IMPRESSION: 1. No hip or pelvic fracture. CT findings suggest a prominent nutrient foramen. There is prominent pate bcutaneous soft tissue swelling and bruising along the lateral aspect of the left hip. A small to mod erate left hip joint effusion is likely reactive. 2. Acuk-bg-[id number] muscle strains or contusion left adductors and left gluteus gómez. 3. Small 1 cm intrasubstance tear at the left hamstrings origin. 4. Incidental: Prostatomegaly of 5.7 cm wide.
[2022-06-02] MEDS: DONEPEZIL 10 MG TAB PO SCH (20:48)
[2022-06-02] MEDS: ATORVASTATIN 40 MG TAB PO SCH (20:49)
[2022-06-03] MEDS: LEVOTHYROXINE 50 MCG TAB PO SCH (05:40)
[2022-06-03] MEDS: IPRATROPIUM 0.5 MG/2.5 ML NEBU INHALATION SCH ×4 (07:49→20:11)
[2022-06-03] MEDS: FORMOTEROL FUMARATE 20 MCG/2 ML NEBU INHALATION SCH ×2 (07:49→20:11)
[2022-06-03] MEDS: METOPROLOL TARTRATE 12.5 MG TAB PO SCH ×2 (08:42→21:05)
[2022-06-03] MEDS: HEPARIN SODIUM,PORCINE/PF 5,000 UNIT/0.5 ML SYRINGE SQ SCH ×2 (08:42→21:05)
[2022-06-03] MEDS: MAGNESIUM OXIDE 400 MG TAB PO SCH (08:42)
[2022-06-03] MEDS: MULTIVITAMINS, THERA 1 EACH TAB PO SCH (08:43)
[2022-06-03] MEDS: LACOSAMIDE 50 MG TABLET PO SCH ×2 (08:43→21:05)
[2022-06-03] MEDS: amLODIPine 10 MG TAB PO SCH (08:43)
[2022-06-03] MEDS: hydrALAZINE HCL 50 MG TAB PO SCH ×4 (08:43→21:05)
[2022-06-03 09:39] LABS: African American GFR (CKD) 91.8 (60.0-200.0); Albumin 3.9 g/dL (3.8-4.9); Albumin/Globulin Ratio 2.06 (1.60-3.17); Anion Gap 8.7 mmol/L (10.00-18.00); BUN/Creat Ratio 23.7 Ratio (12.00-20.00); Calcium 9.1 mg/dL (8.7-10.3); Carbon Dioxide 28.2 mmol/L (20.0-27.5); Globulin 1.9 g/dL (1.6-3.3); Non-African American GFR(CKD) 79.2 (60.0-200.0); Total Bilirubin 0.4 mg/dL (0.30-1.20); Total Protein 5.8 g/dL (6.2-8.2)
[2022-06-03 09:40] LABS: Basophils # (A) 0.05 X 10*3/uL (0.00-0.10); Basophils % (A) 0.8 %; Eosinophils % (A) 3.1 %; HCT 37.5 % (39.6-50.0); HGB 12.6 g/dL (13.0-17.0); Immature Grans, Automated 0.5 %; Lymphocytes % (A) 30.6 %; MCH 32.5 pg (27.0-32.0); MCHC 33.6 g/dL (32.0-37.0); MCV 96.6 fL (80.0-97.0); Mean Platelet Volume 10.1 fL (9.5-12.2); Monocytes # (A) 0.65 X 10*3/uL (0.20-1.00); Monocytes % (A) 9.9 %; NRBC Per 100 WBC 0 /100 WBCS (0.0-0.0); Neutrophils # (A) 3.61 X 10*3/uL (1.80-7.70); Neutrophils % (A) 55.1 %; Platelet Count 184 X 10*3/uL (140-440); RBC 3.88 X 10*6/uL (4.40-5.60); RDW 12.7 % (11.5-14.5); WBC 6.54 X 10*3/uL (4.50-10.00)
--- NOTE | 2022-06-03 10:43 | PN ---
PROGRESS NOTE DATE OF SERVICE: 06/02/2022 SUBJECTIVE: This is an 81-year-old gentleman, who was admitted with fall and gait dysfunction, complaining of significant left hip pain. MRI has been planned today to rule out the possible hip fracture. The patient also had back surgery. No chest pain. No palpitation. OBJECTIVE: VITAL SIGNS: Pulse 87, blood pressure 193/86, respirations 18. CHEST: Clear to auscultation. CARDIOVASCULAR: S1 and S2. ABDOMEN: Soft. NERVOUS SYSTEM: Nonfocal. LABORATORY DATA: WBC noted. ASSESSMENT: 1. Fall and gait dysfunction. 2. Rule out left hip fracture, for MRI. 3. Recent back surgery. 4. Acute urinary tract infection, present on admission. 5. Hypertension. 6. Hyperlipidemia. RECOMMENDATIONS: Recommend to continue current medications and symptomatic treatment. Otherwise, at this time, I would continue the current medications and empiric antibiotics. Guarded prognosis. Further recommendations to follow. EVAN / CARLITOSN: [id number] /
[2022-06-03] MEDS ORDERED: HYDROcodone/APAP 10-325MG 1 EACH TAB PO PRN (12:04)
--- NOTE | 2022-06-03 14:08 | P.PN ---
Subjective Progress Note Date: 06/03/22 Principal diagnosis: Possible hairline fracture left hip Patient seen and examined this morning. Patient was resting in bed. TLSO brace is at bedside. Patient denies working with physical therapy or getting out of bed due to pain, medication has been modified. Patient denies any numbness or tingling to bilateral lower extremities. He reports that he is looking forward to going to rehab so that he can get back to [facility]. He understands that he made a mistake not going from his previous admission. Patient has been afebrile, denies any nausea/vomiting, or chest pain Objective - Vital Signs Vital signs: Vital Signs Temp 97.8 F 06/03/22 07:10 Pulse 77 06/03/22 09:00 Resp 16 06/03/22 09:00 BP 182/78 06/03/22 07:10 Pulse Ox 97 06/03/22 07:49 FiO2 Intake & Output 06/02/22 06/03/22 06/03/22 18:59 06:59 18:59 Output Total 200 200 200 Balance -200 -200 -200 Output: Urine 200 200 200 Other: Voiding Method Urinal Urinal Urinal # Voids 2 1 # Bowel Movements 1 - Exam Physical Examination General: The patient is awake and alert, in no acute distress Skin: Skin is warm and dry with no obvious rashes or lesions. Hairy patches absent, no dorsal skin dimples, no cafe au lait spots, and no surgical incisions. Slight ecchymosis to left hip. Eye: Pupils are equal, round and reactive to light, extra-ocular movements are intact; there is normal conjunctiva bilaterally. Neck: The neck is supple, there is no tenderness and ROM intact. Cardiovascular: There is a regular rate and rhythm. No murmur, rub or gallop is appreciated. Respiratory: Lungs are clear to auscultation, respirations are non-labored, breath sounds are equal. Gastrointestinal: Soft, non-distended, non-tender abdomen. Back: There is mild tenderness to palpation in the midline thoracic region. There is no obvious deformity . Musculoskeletal: ROM limited secondary to pain and stiffness, TTP over the left hip. Muscle strength in all major muscle groups of bilateral upper extremities 5/5, bilateral lower extremities 4/5. Neurological: CN 2-12 intact. There are no obvious motor or sensory deficits. Movement and coordination equal and intact. Sensory exam to light touch intact C5-T1 and intact from L2-S1. Reflexes 2/4 in bilateral upper and lower extremities. Negative Hoffmans, babinski, and clonus signs. Psychiatric: Cooperative, appropriate mood & affect, normal judgment. - Labs CBC & Chem 7: 06/03/22 05:49 06/03/22 05:49 Labs: Abnormal Lab Results - Last 24 Hours (Table) 06/03/22 06/03/22 Range/Units 05:49 05:49 RBC 3.88 L (4.40-5.60) X 10*6/uL Hgb 12.6 L (13.0-17.0) g/dL Hct 37.5 L (39.6-50.0) % MCH 32.5 H (27.0-32.0) pg Carbon Dioxide 28.2 H (20.0-27.5) mmol/L Anion Gap 8.70 L (10.00-18.00) mmol/L BUN/Creatinine Ratio 23.70 H (12.00-20.00) Ratio Total Protein 5.8 L (6.2-8.2) g/dL Assessment and Plan Assessment: Left hip pain T11 compression fracture Inability to care for self Dementia Plan: -MRI of the left hip is negative for dislocation or fracture. Soft tissue swelling is noted. -Encourage participation with PT/OT, utilize TLSO brace for support and stabilization of T11 compression fracture -Continue with pain management, [place] and ice therapy -Appreciate industrial methods consultant and team management. I reviewed and discussed this case with my attending Dr. Durand, whom has reviewed this chart and films and is in agreement with assessment and plan of c are as outlined above. I have personally seen and examined the patient, performed the documentation and the assessment and plan as written. Number of minutes spent on the visit: 20m.
[2022-06-03] MEDS: HYDROcodone/APAP 10-325MG 1 EACH TAB PO SCH ×3 (14:09→22:05)
[2022-06-03] MEDS: KETOROLAC 15 MG/ML 1 ML VIAL IVP PRN (14:10)
[2022-06-03] MEDS: ATORVASTATIN 40 MG TAB PO SCH (21:05)
[2022-06-03] MEDS: DONEPEZIL 10 MG TAB PO SCH (21:05)
[2022-06-04] MEDS: HYDROcodone/APAP 10-325MG 1 EACH TAB PO SCH ×6 (02:05→22:50)
--- NOTE | 2022-06-04 02:55 | PN ---
PROGRESS NOTE DATE OF SERVICE: 06/03/2022 SUBJECTIVE: This is an 81-year-old gentleman, who was admitted with fall and gait dysfunction, also had an MRI. There is no evidence of any fracture in the MRI. No chest pain. No palpitations. No fever. OBJECTIVE: VITAL SIGNS: Pulse 77, blood pressure 118/78, respirations 16. HEENT: Conjunctivae normal. NECK: No JVD. CARDIOVASCULAR: S1, S2. RESPIRATION: Breath sounds diminished at the bases. ABDOMEN: Soft. EXTREMITIES: Leg movements are painful. LABORATORY DATA: Reviewed. ASSESSMENT: 1. Fall and gait dysfunction. 2. Hip fracture ruled out from MRI. 3. Recent back surgery. 4. Acute urinary tract infection, ruled out on admission. 5. Hypertension. 6. Hyperlipidemia. RECOMMENDATIONS: I recommend to continue current management and treatment; otherwise, I would recommend PT/OT evaluation. ECF rehab. Further recommendations for symptomatic treatment. MMODL / IJN: [id number] /
[2022-06-04] MEDS: LEVOTHYROXINE 50 MCG TAB PO SCH (06:09)
[2022-06-04] MEDS: amLODIPine 10 MG TAB PO SCH (08:02)
[2022-06-04] MEDS: LACOSAMIDE 50 MG TABLET PO SCH ×2 (08:02→21:34)
[2022-06-04] MEDS: MULTIVITAMINS, THERA 1 EACH TAB PO SCH (08:02)
[2022-06-04] MEDS: hydrALAZINE HCL 50 MG TAB PO SCH ×4 (08:02→22:51)
[2022-06-04] MEDS: HEPARIN SODIUM,PORCINE/PF 5,000 UNIT/0.5 ML SYRINGE SQ SCH ×2 (08:02→21:34)
[2022-06-04] MEDS: MAGNESIUM OXIDE 400 MG TAB PO SCH (08:02)
[2022-06-04] MEDS: METOPROLOL TARTRATE 12.5 MG TAB PO SCH ×2 (08:02→21:34)
[2022-06-04] MEDS: IPRATROPIUM 0.5 MG/2.5 ML NEBU INHALATION SCH ×4 (08:54→19:06)
[2022-06-04] MEDS: FORMOTEROL FUMARATE 20 MCG/2 ML NEBU INHALATION SCH ×2 (08:54→19:06)
[2022-06-04 09:18] LABS: Basophils # (A) 0.03 X 10*3/uL (0.00-0.10); Basophils % (A) 0.5 %; Eosinophils # (A) 0.16 X 10*3/uL (0.04-0.35); Eosinophils % (A) 2.9 %; HCT 37.7 % (39.6-50.0); HGB 12.6 g/dL (13.0-17.0); Immature Grans, Automated 0.4 %; Lymphocytes # (A) 1.85 X 10*3/uL (0.90-5.00); Lymphocytes % (A) 33.2 %; MCH 32.6 pg (27.0-32.0); MCHC 33.4 g/dL (32.0-37.0); MCV 97.4 fL (80.0-97.0); Mean Platelet Volume 9.9 fL (9.5-12.2); Monocytes # (A) 0.63 X 10*3/uL (0.20-1.00); Monocytes % (A) 11.3 %; NRBC Per 100 WBC 0 /100 WBCS (0.0-0.0); Neutrophils # (A) 2.88 X 10*3/uL (1.80-7.70); Neutrophils % (A) 51.7 %; Platelet Count 190 X 10*3/uL (140-440); RBC 3.87 X 10*6/uL (4.40-5.60); RDW 12.6 % (11.5-14.5); WBC 5.57 X 10*3/uL (4.50-10.00)
[2022-06-04 09:26] LABS: African American GFR (CKD) 95.7 (60.0-200.0); Anion Gap 8.2 mmol/L (10.00-18.00); BUN/Creat Ratio 19.88 Ratio (12.00-20.00); Blood Urea Nitrogen 15.9 mg/dL (9.0-27.0); Calcium 8.9 mg/dL (8.7-10.3); Carbon Dioxide 28.8 mmol/L (20.0-27.5); Non-African American GFR(CKD) 82.6 (60.0-200.0)
[2022-06-04] MEDS: ATORVASTATIN 40 MG TAB PO SCH (21:34)
[2022-06-04] MEDS: DONEPEZIL 10 MG TAB PO SCH (21:34)
--- NOTE | 2022-06-05 02:12 | PN ---
PROGRESS NOTE DATE OF SERVICE: 06/04/2022 SUBJECTIVE: This 81-year-old gentleman who was admitted with fall and gait dysfunction, does not agree fracture per MRI. PT, OT evaluated the patient and possible ECF rehab. No chest pain. No palpitation. OBJECTIVE: GENERAL: The patient is mildly confused. VITAL SIGNS: Pulse 71, blood pressure n, respirations 18. CHEST: Clear to auscultation. CARDIOVASCULAR: S1, S2. ABDOMEN: Soft. EXTREMITIES: Left hip movement is painful. LABORATORY DATA: Reviewed. ASSESSMENT: 1. Fall and gait dysfunction. 2. Left hip pain, hip fracture ruled out from the MRI. 3. Recent back surgery. 4. Hypertension. 5. Hyperlipidemia. 6. Urinary tract infection ruled out. RECOMMENDATIONS: I recommend to continue current management and treatment; otherwise, at this time, symptomatic treatment. PT/OT evaluation. Possible ECF rehab. Guarded prognosis. Further recommendations to follow. VEAN / CARLITOSN: [id number] / MTDD
[2022-06-05] MEDS: HYDROcodone/APAP 10-325MG 1 EACH TAB PO SCH ×4 (03:23→16:39)
[2022-06-05] MEDS: LEVOTHYROXINE 50 MCG TAB PO SCH (06:32)
[2022-06-05 08:37] VITALS: PULSE 69; RESP 18; TEMP 98
[2022-06-05] MEDS: MAGNESIUM OXIDE 400 MG TAB PO SCH (09:17)
[2022-06-05] MEDS: LACOSAMIDE 50 MG TABLET PO SCH (09:18)
[2022-06-05] MEDS: METOPROLOL TARTRATE 12.5 MG TAB PO SCH (09:18)
[2022-06-05] MEDS: amLODIPine 10 MG TAB PO SCH (09:18)
[2022-06-05] MEDS: hydrALAZINE HCL 50 MG TAB PO SCH (09:19)
[2022-06-05] MEDS: HEPARIN SODIUM,PORCINE/PF 5,000 UNIT/0.5 ML SYRINGE SQ SCH (09:19)
[2022-06-05] MEDS: MULTIVITAMINS, THERA 1 EACH TAB PO SCH (09:19)
[2022-06-05] MEDS: IPRATROPIUM 0.5 MG/2.5 ML NEBU INHALATION SCH ×3 (09:50→16:37)
[2022-06-05] MEDS: FORMOTEROL FUMARATE 20 MCG/2 ML NEBU INHALATION SCH (09:50)
--- NOTE | 2022-06-05 14:56 | P.DS ---
Providers Date of admission: 05/31/22 17:34 Expected date of discharge: 06/05/22 Attending physician: Sean Summers Consults: 06/01/22 09:22 Consult Physician Stat Consulting Provider: Kaden Durand Consult Reason/Comments: possible Left hip FX Do you want consulting provider notified?: Yes Primary care physician: Jose Marx Hospital Course: Final diagnosis Falling gait dysfunction Howe left hip pain, hip fracture ruled out from the MRI Recent back surgery Hypertension hyperlipidemia urinary tract infection, ruled out GI prophylaxis DVT prophylaxis Full code Discharge disposition Patient is being discharged in a stable condition with guarded prognosis to [facility]. Patient will follow-up with Dr. Jose Marx in the outpatient setting upon discharge. Patient is to follow-up with orthopedics outpatient as scheduled. Patient to continue with the TLSO brace while ambulating. Total time taken is greater than 35 minutes. Hospital course This is a 81-year-old male who was recently admitted with falling gait dysfunction and evaluated by orthopedics and being monitored closely. Patient initially reluctant to go to rehab for strength and mobility although is now agreeable and has received authorization to go to [facility] and has been accepted. Patient has been cleared by orthopedics for outpatient follow-up and will continue TLSO brace while up and ambulating and close outpatient follow-up. Currently no reports of chest pain, shortness of breath, or palpitations. Patient is afebrile. No reports of nausea or vomiting and patient is tolerating diet. Patient will be going to [facility] today. Guarded prognosis. Physical exam: Gen: This is a 81-year-old male who is awake, alert and oriented 3, well- developed, well-nourished, obese HEENT: Head is atraumatic, normocephalic. Pupils equal, round. Sclerae is anicteric. NECK: Supple. No JVD. No lymphadenopathy. No thyromegaly. LUNGS: Clear to auscultation. No wheezes or rhonchi. No intercostal retractions. HEART S1, S2 are muffled ABDOMEN: Soft. Bowel sounds are present. No masses. No tenderness. EXTREMITIES: No pedal edema. No calf tenderness. Left hip pain with movement NEUROLOGICAL: Patient is awake, alert and oriented x3. Cranial nerves 2 through 12 are grossly intact. Diffusely weak Please refer to medication reconciliation sheet for a list of medications. The impression and plan of care has been dictated by Ciara Nicolas, Nurse Practitioner as directed. Dr. Kristopher MD I have performed a history and examination and MDM of this patient, discussed the same with the dictator, and agree with the dictator's assessment and plan as written ,documented as a scribe. Based on total visit time, I have performed more than 50% of the visit. Patient Condition at Discharge: Fair Plan - Discharge Summary New Discharge Prescriptions: New hydrALAZINE HCL [Apresoline] 50 mg PO QID tab Heparin Sodium,Porcine [Heparin Sodium] 5,000 unit SQ Q12HR 30 Days #60 each Metoprolol Tartrate [Lopressor] 12.5 mg PO BID tab amLODIPine [Norvasc] 10 mg PO DAILY tab Ipratropium Nebulized [Atrovent Nebulized 0.2 MG/ML] 0.5 mg INHALATION RT-QID ml Ondansetron Odt [Zofran Odt] 8 mg PO Q8HR #6 tab Continue Multivitamins, Thera [Multivitamin (formulary)] 1 tab PO DAILY Levothyroxine Sodium [Synthroid] 50 mcg PO DAILY Atorvastatin [Lipitor] 40 mg PO HS Albuterol Sulfate [Ventolin HFA] 2 puff INHALATION RT-Q4H PRN PRN Reason: Shortness Of Breath Magnesium 250 mg PO DAILY Umeclidinium Brm/Vilanterol Tr [Anoro Ellipta 62.5-25 Mcg INH] 1 puff INHALATION RT-DAILY Donepezil 23mg 23 mg PO HS methocarbamoL [Robaxin-750] 750 mg PO TID PRN #60 tab PRN Reason: Muscle Spasm Sennosides/Docusate Sodium [Senna Plus 8.6-50 mg Tablet] 1 tab PO DAILY PRN PRN Reason: Constipation Lacosamide [Vimpat] 100 mg PO BID #6 tab Changed HYDROcodone/APAP 10-325MG [[place] 10-325] 1 tab PO Q4H PRN #6 tab PRN Reason: Pain Discontinued amLODIPine [Norvasc] 5 mg PO DAILY #30 tab hydrALAZINE HCL [Apresoline] 50 mg PO BID #60 tab Discharge Medication List Atorvastatin [Lipitor] 40 mg PO HS 09/15/15 [History] Levothyroxine Sodium [Synthroid] 50 mcg PO DAILY 09/15/15 [History] Multivitamins, Thera [Multivitamin (formulary)] 1 tab PO DAILY 09/15/15 [History] Magnesium 250 mg PO DAILY 02/10/21 [History] Umeclidinium Brm/Vilanterol Tr [Anoro Ellipta 62.5-25 Mcg INH] 1 puff INHALATION RT-DAILY 02/10/21 [History] Albuterol Sulfate [Ventolin HFA] 2 puff INHALATION RT-Q4H PRN 12/08/21 [History] Donepezil 23mg 23 mg PO HS 12/08/21 [History] methocarbamoL [Robaxin-750] 750 mg PO TID PRN #60 tab 05/29/22 [Rx] Sennosides/Docusate Sodium [Senna Plus 8.6-50 mg Tablet] 1 tab PO DAILY PRN 05/31/22 [History] HYDROcodone/APAP 10-325MG [Hedrick 10-325] 1 tab PO Q4H PRN #6 tab 06/05/22 [Rx] Heparin Sodium,Porcine [Heparin Sodium] 5,000 unit SQ Q12HR 30 Days #60 each 06/05/22 [Rx] Ipratropium Nebulized [Atrovent Nebulized 0.2 MG/ML] 0.5 mg INHALATION RT-QID ml 06/05/22 [Rx] Lacosamide [Vimpat] 100 mg PO BID #6 tab 06/05/22 [Rx] Metoprolol Tartrate [Lopressor] 12.5 mg PO BID tab 06/05/22 [Rx] Ondansetron Odt [Zofran Odt] 8 mg PO Q8HR #6 tab 06/05/22 [Rx] amLODIPine [Norvasc] 10 mg PO DAILY tab 06/05/22 [Rx] hydrALAZINE HCL [Apresoline] 50 mg PO QID tab 06/05/22 [Rx] Follow up Appointment(s)/Referral(s): Jose Marx DO [Primary Care Provider] - 1-2 days Kaden Durand DO [Doctor of Osteopathic Medicine] - 1 Week Activity/Diet/Wound Care/Special Instructions: Patient is going to [place] Activity as tolerated Continue with TLSO brace Follow-up primary care provider on discharge Follow-up with orthopedics outpatient Continue regular diet Discharge Disposition: TRANSFER TO SNF/ECF
[2022-06-05 15:16] VITALS: BP 148/66
== END 2022-06-05 18:52 | DRG 556 ==
LOC: EC 12:25 → 5NMEDONC 17:34
PROVIDERS: ADMIT Hospitalist; ATTEND Hospitalist
DX: M25.552 Pain in left hip (principal); W19.XXXA Unspecified fall, initial encounter; E03.9 Hypothyroidism, unspecified; E78.5 Hyperlipidemia, unspecified; F03.90 Unspecified dementia, unspecified severity, without behavioral disturbance, psychotic disturbance, mood disturbance, and anxiety; I10 Essential (primary) hypertension; G40.909 Epilepsy, unspecified, not intractable, without status epilepticus; G47.33 Obstructive sleep apnea (adult) (pediatric); J44.9 Chronic obstructive pulmonary disease, unspecified; G89.29 Other chronic pain; M54.50 Low back pain, unspecified; M25.512 Pain in left shoulder; R26.9 Unspecified abnormalities of gait and mobility; Z20.822 Contact with and (suspected) exposure to COVID-19; Z88.0 Allergy status to penicillin; Z87.891 Personal history of nicotine dependence; Z79.899 Other long term (current) drug therapy; Z79.890 Hormone replacement therapy; W11.XXXD Fall on and from ladder, subsequent encounter; S42.002D Fracture of unspecified part of left clavicle, subsequent encounter for fracture with routine healing; S22.089D Unspecified fracture of T11-T12 vertebra, subsequent encounter for fracture with routine healing; Z87.828 Personal history of other (healed) physical injury and trauma
CPT/HCPCS: 71045; 80048; 80053; 81001; 85025; 87502; 87634; 87635; 94640; 94760; 96374; 96375; 96376; 99285

== ENCOUNTER 2022-06-21 15:39 | Inpatient (IN) | payer MEDICARE ==
[2022-06-21 16:33] LABS: Basophils # (A) 0.1 k/uL (0-0.2); Basophils % (A) 1 %; Eosinophils # (A) 0.1 k/uL (0-0.7); Eosinophils % (A) 2 %; HCT 41.7 % (39.0-53.0); HGB 14.1 gm/dL (13.0-17.5); Lymphocytes # (A) 2.1 k/uL (1.0-4.8); Lymphocytes % (A) 34 %; MCH 32.1 pg (25.0-35.0); MCHC 33.9 g/dL (31.0-37.0); MCV 94.9 fL (80.0-100.0); Mean Platelet Volume 7.8; Monocytes # (A) 0.4 k/uL (0-1.0); Monocytes % (A) 7 %; Neutrophils # (A) 3.3 k/uL (1.3-7.7); Neutrophils % (A) 54 %; Platelet Count 170 k/uL (150-450); RDW 12.6 % (11.5-15.5); WBC 6.2 k/uL (3.8-10.6)
[2022-06-21 16:44] LABS: INR 0.9 (<1.2); Partial Thromboplastin Time 22.3 sec (22.0-30.0)
[2022-06-21 16:45] LABS: Albumin 3.9 g/dL (3.5-5.0); Calcium 9.2 mg/dL (8.4-10.2); Potassium 4.3 mmol/L (3.5-5.1); Total Bilirubin 0.5 mg/dL (0.2-1.3)
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
[2022-06-21] MEDS ORDERED: NALOXONE 0.4 MG/ML 1 ML VIAL IV PRN (17:23)
[2022-06-21] MEDS: MORPHINE SULFATE 4 MG/ML SYRINGE IV PRN (19:31)
--- NOTE | 2022-06-21 19:43 | XR ---
EXAMINATION TYPE: XR chest 2V DATE OF EXAM: 06/21/2022 7:00 PM COMPARISON: Chest radiographs from 05/31/2022 TECHNIQUE: XR chest 2V Frontal and lateral views of the chest. CLINICAL INDICATION:Male, 81 years old with history of pre-op; FINDINGS: Lungs/Pleura: Prominent interstitial lung markings are seen scattered throughout the lungs. No eviden ce of focal consolidation, pneumothorax or pleural effusion. Pulmonary vascularity: Unremarkable. Heart/mediastinum: Cardiomediastinal silhouette is unremarkable. Musculoskeletal: No acute osseous pathology. Remote fracture of the left clavicle suggested. IMPRESSION: Chronic changes without acute pulmonary process. No significant change from prior.
--- NOTE | 2022-06-21 20:09 | CT ---
EXAMINATION TYPE: CT thor lumbar spine wo con DATE OF EXAM: 06/21/2022 7:34 PM CLINICAL INDICATION:Male, 81 years old with history of back pain; back pain. hx of recent t spine fx. COMPARISON: 05/27/2022 TECHNIQUE: Axial images of the thoracic and lumbar spine were obtained without contrast. Coronal and sagittal reformats were performed. 3-D reformats of the bones were created on a separate workstation and submitted for review. CT DLP: 1141.6 mGycm, Automated exposure control for dose reduction was used. CT Contrast: Contrast used: None Oral contrast used: None FINDINGS: Thoracic: T11 vertebral body fracture which appears progressed from prior on 05/27/2022. There is at least 40% height loss on today's exam without retropulsion. The neural foramen at T10-T11 are moderat e to severely narrowed. T9-T10 mild spinal canal stenosis secondary disc bulging. The remainder of th e spinal canal levels and neural foramen are patent. Remote injuries to the bilateral clavicles. Ozzy tional remote injuries to the left upper posterior ribs. Scattered degeneration with facet joint arth ropathy and osteophytes. Lumbar: Alignment: There are 5 lumbar type vertebral bodies within normal alignment. Hypoplastic bilateral T1 2 ribs. Bone: Facet joint arthropathy and most present throughout the lumbar spine. L4 and L5 vertebral body sclerotic focus likely representing bone islands. Discs: T12-L1: Disc bulge and facet joint arthropathy with mild to moderate spinal canal stenosis mild bilat eral neural foraminal stenosis. L1-L2: Disc bulge and facet joint arthropathy with mild spinal canal stenosis mild bilateral neural f oraminal stenosis. L2-L3: Disc bulge and facet joint arthropathy with mild spinal canal stenosis mild bilateral neural f oraminal stenosis. L3-L4: Disc bulge and facet joint arthropathy with moderate spinal canal stenosis mild bilateral neur al foraminal stenosis. L4-L5: Disc bulge and facet joint arthropathy with moderate to severe spinal canal stenosis mild jarett ateral neural foraminal stenosis. L5-S1: No spinal canal or neural foraminal stenosis is identified. Other: Atherosclerosis of the arterial vasculature. There is cholelithiasis. IVC filter in appropriat e position. IMPRESSION: Progression of T11 vertebral body compression fracture now with at least 40% height loss. There is so me bulging at this level with at least mild to moderate spinal canal stenosis.. This also results in moderate to severe T10-T11 neural foraminal stenosis.
[2022-06-21] MEDS ORDERED: ALBUTEROL NEBULIZED 2.5 MG/3 ML INHALATION PRN (21:38)
[2022-06-21] MEDS ORDERED: methocarbamoL 750 MG TAB PO PRN (21:38)
[2022-06-21] MEDS: hydrALAZINE HCL 50 MG TAB PO SCH (22:42)
[2022-06-21] MEDS: DONEPEZIL 10 MG TAB PO SCH (22:42)
[2022-06-21] MEDS: METOPROLOL TARTRATE 12.5 MG TAB PO SCH (22:42)
[2022-06-21] MEDS: LACOSAMIDE 50 MG TABLET PO SCH (22:44)
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
[2022-06-22] MEDS: hydrALAZINE HCL 50 MG TAB PO SCH ×4 (07:29→21:51)
[2022-06-22] MEDS: LEVOTHYROXINE 50 MCG TAB PO SCH (07:29)
--- NOTE | 2022-06-22 07:36 | P.PN ---
Subjective Progress Note Date: 06/22/22 Patient is an 81-year-old male with known hypertension, COPD, seizure disorder, and frequent falls who presented to the hospital for intractable progressive back pain secondary to known vertebral fracture. Patient was hospitalized here from 05/31 through 06/05 due to worsening back pain. On 05/27 he had a fall when he was on a ladder and was prescribed a TLSO brace but needed a repeat presented to the hospital on 05/31 due to worsening pain. After that hospital stay he was discharged to rehab with TLSO brace in place. However his pain continued to worsen despite optimized conservative therapy and he represented to the hospital for intractable pain on 06/21/22 despite being at nursing home facility and receiving aggressive pain management with [place] 10/325 every 4 hours, methocarbamol, Robaxin. On arrival to the ER here he was slightly hypertensive. Repeat CT thoracic and lumbar spine progression of T11 vertebral body compression fracture with 40% height loss, mild to moderate spinal canal stenosis with moderate to severe neural foraminal stenosis at T10/11. Laboratory analysis is unremarkable. In the ER he required IV morphine for pain control. He was admitted for further evaluation by orthopedic spine surgery who had recommended surgical intervention. Patient seen and examined at bedside. He complains of being very weak and tired. He is feeling dorwsy. He does not want to move due to the fear of pain. He is ucrrently comfortable but does not want to sit or work with therapy due to pain. General: nontoxic, no distress, appears at stated age Derm: warm, dry Head: atraumatic, normocephalic, symmetric Eyes: EOMI, no lid lag, anicteric sclera Mouth: no lip lesion, mucus membranes moist Cardiovascular: S1S2 reg, no murmur, positive posterior tibial pulse bilateral, Lungs: Decreased bs bilateral, no rhonchi, no rales , no accessory muscle use Abdominal: soft, nontender to palpation, no guarding, no appreciable organomegaly Ext: no gross muscle atrophy, no edema, no contractures Neuro: CN II-XI grossly intact, no focal neuro deficits Psych: Alert, oriented, appropriate affect Assessment/plan: Intractable back pain secondary to T11 vertebral compression fracture with progression since May 2022 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 Durand Hypertension, improved control -Continue with metoprolol and Norvasc -Follow blood pressures COPD without exacerbation -When necessary bronchodilators along scheduled bronchodilators Seizure disorder -Continue with thin patent Hypothyroidism -Synthroid Thank you for allowing us to participate in the care of this pleasant patient. Do not hesitate to contact us with questions. Someone can be reached from the [facility] hospitalist group all hours of the day at [phone] or via [employer]. Active Medications Generic Name Dose Route Start Last Admin Trade Name Freq PRN Reason Stop Dose Admin Hydrocodone Bitart/Acetaminophen 1 each 06/21/22 21:38 Hydrocodone/Apap 10-325mg 1 Each Tab PO Q4H PRN Pain Albuterol Sulfate 2.5 mg 06/21/22 21:38 Albuterol Nebulized 2.5 Mg/3 Ml INHALATION RT-Q4H PRN Shortness Of Breath Albuterol/Ipratropium 3 ml 06/22/22 08:00 06/22/22 12:07 Ipratropium-Albuterol 3 Ml Neb INHALATION 3 ml RT-QID TOY Administration Amlodipine Besylate 10 mg 06/22/22 08:00 06/22/22 09:55 Amlodipine 10 Mg Tab PO 10 mg DAILY@0800 TOY Administration Atorvastatin Calcium 40 mg 06/22/22 21:00 Atorvastatin 40 Mg Tab PO HS@2100 TOY Donepezil HCl 10 mg 06/21/22 21:00 06/21/22 22:42 Donepezil 10 Mg Tab PO 10 mg HS@2100 TOY Administration Formoterol Fumarate 20 mcg 06/22/22 08:00 06/22/22 08:37 Formoterol Fumarate 20 Mcg/2 Ml Nebu INHALATION 20 mcg RT-BID TOY Administration Hydralazine HCl 50 mg 06/21/22 22:00 06/22/22 07:29 Hydralazine Hcl 50 Mg Tab PO 50 mg QID@06,12,18,22 TOY Administration Cefazolin Sodium 2 gm/ Sodium 50 mls @ 100 mls/hr 06/22/22 00:00 06/22/22 08:32 Chloride IVPB 100 mls/hr Q8HR TOY Administration Protocol Lacosamide 100 mg 06/21/22 22:15 06/22/22 09:56 Lacosamide 50 Mg Tablet PO 100 mg BID@0800,1700 ON LICENSE OF [facility] Administration Levothyroxine Sodium 50 mcg 06/22/22 06:30 06/22/22 07:29 Levothyroxine 50 Mcg Tab PO 50 mcg DAILY@0630 ON LICENSE OF [facility] Administration Methocarbamol 750 mg 06/21/22 21:38 Methocarbamol 750 Mg Tab PO BID PRN Muscle Pain Metoprolol Tartrate 12.5 mg 06/21/22 22:15 06/22/22 09:56 Metoprolol Tartrate 12.5 Mg Tab PO 12.5 mg BID@0800,1700 ON LICENSE OF [facility] Administration Morphine Sulfate 4 mg 06/21/22 17:23 06/22/22 08:32 Morphine Sulfate 4 Mg/Ml Syringe IV 4 mg Q4HR PRN Administration Severe Pain (Scale 7 to 10) Naloxone HCl 0.2 mg 06/21/22 17:23 Naloxone 0.4 Mg/Ml 1 Ml Vial IV Q2M PRN Opioid Reversal Objective - Vital Signs Vital signs: Vital Signs Temp 97.3 F L 06/22/22 02:30 Pulse 79 06/21/22 19:33 Resp 22 06/22/22 02:30 BP 157/69 06/22/22 02:30 Pulse Ox 94 L 06/22/22 02:30 FiO2 Intake & Output 06/21/22 06/22/22 06/22/22 18:59 06:59 18:59 Weight 72.575 kg 72.575 kg Other: Voiding Method Urinal # Voids 2 - Labs CBC & Chem 7: 06/21/22 16:15 06/21/22 16:15 Labs: Abnormal Lab Results - Last 24 Hours (Table) 06/21/22 Range/Units 16:15 Total Protein 6.0 L (6.3-8.2) g/dL
[2022-06-22] MEDS ORDERED: METOPROLOL TARTRATE 12.5 MG TAB PO SCH (08:00)
[2022-06-22] MEDS ORDERED: TRANEXAMIC ACID 1,000 MG in SODIUM CHLORIDE 0.9% 100 ML IVPB PRN (08:00)
[2022-06-22] MEDS ORDERED: LACOSAMIDE 50 MG TABLET PO SCH (08:00)
[2022-06-22] MEDS: MORPHINE SULFATE 4 MG/ML SYRINGE IV PRN ×2 (08:32→18:18)
[2022-06-22] MEDS: FORMOTEROL FUMARATE 20 MCG/2 ML NEBU INHALATION SCH ×2 (08:37→20:33)
[2022-06-22] MEDS: IPRATROPIUM-ALBUTEROL 3 ML NEB INHALATION SCH ×4 (08:37→20:33)
[2022-06-22] MEDS: amLODIPine 10 MG TAB PO SCH (09:55)
[2022-06-22] MEDS: METOPROLOL TARTRATE 12.5 MG TAB PO SCH ×2 (09:56→18:18)
[2022-06-22] MEDS: LACOSAMIDE 50 MG TABLET PO SCH ×2 (09:56→18:18)
--- NOTE | 2022-06-22 20:15 | P.PN ---
Progress Note - Text Progress Note Date: 06/22/22 Pt s/e again. He did not tolerate PT, movement, up and about, the brace and is requiring increasing doses of narcotics to be comfortable. He was unable to participate in exam this visit due to the pain. We discussed with his family once again the procedure and they are on board with doing it tomorrow due to his failure to progress from this traumatic fracture with conservative management. NPO Ancef on hold to OR TXA on hold to OR OR in AM
[2022-06-22] MEDS: DONEPEZIL 10 MG TAB PO SCH (21:51)
[2022-06-22] MEDS: ATORVASTATIN 40 MG TAB PO SCH (21:51)
[2022-06-23] MEDS ORDERED: TRANEXAMIC ACID 1,000 MG in SODIUM CHLORIDE 0.9% 100 ML IVPB ONE ×4 (06:00)
--- NOTE | 2022-06-23 06:44 | P.PN ---
Progress Note - Text Progress Note Date: 06/23/22 Spine Surgery Clinical and Risk Review William Carrasco is a 81 yo male presenting for evaluation of severe low back pain, inability to ambulate s/p multiple ffs. It was my pleasure to have seen and examined William Carrasco. In our visit today we have had a chance to go over subjective complaints, physical examination findings and treatments including the natural course history without intervention and various interventional options. The patients imaging demonstrates: CT exam of the thoracolumbar region performed 06/21/2022 as compared to his previous imaging. There is a T11 compression fracture which is 50% compressed. There is extension of the fracture apparently posteriorly through the pedicles on the right-hand side of T11. There is likely posterior ligamental involvement as well making this more of a 3 column type fracture. Between T10 and T11 the disc space is showing signs of disruption with vacuum disc and increased fishmouthing. This is a change from his previous exams with progression of his fracture as well as likely instability. This affects the alignment at the thoracolumbar junction with kyphosis at the segment that fractured. There is widespread spondylosis of the lower lumbar spine but no other fractures noted. Bring degrees of foraminal and central stenosis are noted as well. No lesions. On physical exam, William demonstrates severe back pain, inability to ambulate due to the pain and feeling of instability. I have explained to the patient that as their condition progresses it will cause further neurological deficits and eventual paralysis. Based on the patients imaging, physical exam, and the rapid progression and disabling nature of their symptoms, at this time I recommend surgery in the form or a: T9-L1 stabilization with T11 kyphoplasty. I discussed the risk and benefits of this procedure at length with William and his . The patient and his agreed to considered pursuing the procedure abovementioned. Prior to surgery, she should follow up with her PCP (Cardio, ID, IM etc) for clearance. Questions were invited and answered, and the patient wishes to proceed as outlined below. Currently, I am recommendin. T9-L1 stabilization with T11 kyphoplasty 2. Follow up with PCP for surgical clearance 3. Review of surgical risks and benefits as well as an educational packet on the proposed surgical procedure. Risks: All surgical procedures come with inherent risks, including those related to positioning, anesthesia, intraoperative findings, and postoperative complications. It is important to understand that surgery does not come with any guarantee of a successful outcome as complications and adverse events are always possible. The patient was given a handout in office today discussing the surgical procedure and risks associated with the intervention, both of which were discussed with the patient. These risks include but are not limited to the following: Experiencing same, different or even worse symptoms in back, neck, arms, or legs compared to before surgery. Requiring further surgery or other forms of treatment presently or at some time in the future at same or other levels of the intended spine surgery. On an extreme but fortunately relatively rare basis severe complication such as blindness, stroke, heart attack, temporary and/or permanent nerve injury, paralysis, coma, or may occur, sometimes without known explanation. Surgical complications may include but are not limited to risk of infection, fluid accumulation in the surgical dissection site, including a seroma or hematoma, that requires additional surgery, wound drainage, bleeding, new numbness or weakness, vision changes/loss, spinal fluid leakage, non-healing and/or infected incision, headaches, difficulty or inability to swallow, hoarseness, hemopneumothorax, pneumothorax, impotence, retrograde ejaculation, vaginal dryness; injury to nerves, spinal cord, blood vessels, lymphatics or other vital organs (i.e., bowel injury, injury to the great vessels); heterotopic bone formation; complications related to the hardware such as screws, rods, cages including misplaced hardware, device failure, instrumentation at the wrong spine level, hardware fracture/breakage, or hardware loosening; vertebral failure of the spinal column above or below the newly placed hardware; retained surgical instrumentations or devices and the need for further surgery. Medical risks of the planned spine surgery include but are not limited to generalized Infections to the whole body or local areas outside of the surgical site (sepsis), heart attack, bleeding, anaphylaxis, meningitis, seizure, epilepsy, hearing loss, burn dior, laceration of the head or other areas of the body, bruising, hypersensitivity of the skin, bladder over distension; allergic reaction; shoulder injury related to positioning; fat, blood and air clots to other areas of the body like heart, lungs, brain; failure of internal organs such as lungs, kidneys, liver and excessive bleeding. If blood transfusions are necessary, note that transfusions may cause intolerance reactions such as anaphylaxis or other complex reactions. Despite best efforts, the results of spine surgery might not heal in terms of bone, soft tissues such as skin, fascia, ligaments, and joints. Additionally, in order to achieve best possible results, spine surgery may be carried out beyond the initially planned levels and involve decompression, fusion including insertion of hardware at levels other than the original intended area of surgical interest change some portions of the procedure in order to ensure the best possible outcomes. With spine surgery and spinal fusion, there are different off label uses of instrumentation (devices, implants and hardware) as well as biological substances (bone morphogenic proteins, demineralized bone matrix) as well as using extra bone from allograft sources (i.e. cadaver bone) or autograft (iliac crest bone, ribs, or the spine itself). The patient has been given information about these practices and their inherent risks and benefits. The patient has had a chance to review all the listed information, has been given print outs detailing this information, and has had all his/her questions answered to their satisfaction. It was my pleasure to have seen and examined William Carrasco. In our visit today we have had a chance to go over my understanding of our patient's current c ondition, the natural course history without intervention and various interventional options. Questions were invited and answered, and the patient wishes to proceed as outlined above. I have seen and examined the patient for 25 minutes and we have spent more than 50% of the time in repeat and detailed counseling about the patient's condition, its natural course history with out and as much as can be predicted with surgery and re-review of various surgical treatment options. In conclusion,William Carrasco and his requested we proceed with the above suggested surgery and are willing to accept risks and limitations of the suggested surgery as nature of the disease process and our best attempts at treatment for the condition. Thank you again for allowing us to be part of your patient's care. Please don't hesitate to contact me if you have any further questions. Signed and authenticated by: Kaden Fuentes [facility] [address], [address] [address]
[2022-06-23] MEDS: hydrALAZINE HCL 50 MG TAB PO SCH ×4 (07:11→23:04)
[2022-06-23] MEDS: LEVOTHYROXINE 50 MCG TAB PO SCH (07:11)
[2022-06-23] MEDS ORDERED: ONDANSETRON 4 MG/2 ML VIAL ONE (07:52)
[2022-06-23] MEDS ORDERED: PHENYLEPHRINE-0.9% NACL SYG 1,000 MCG/10 ML SYRINGE ONE (07:52)
[2022-06-23] MEDS ORDERED: NEOSTIGMINE 1 MG/ML 10 ML VIAL ONE (07:52)
[2022-06-23] MEDS ORDERED: LIDOCAINE 2% INJ 20 MG/ML (2 ML VIAL) ONE (07:52)
[2022-06-23] MEDS ORDERED: SUCCINYLCHOLINE CHLORIDE 200 MG/10 ML VIAL IV ONE (07:52)
[2022-06-23] MEDS ORDERED: PROPOFOL 10 MG/ML 20 ML VIAL IV ONE (07:52)
[2022-06-23] MEDS ORDERED: ROCURONIUM 10 MG/ML (5 ML VIAL) IV ONE (07:52)
[2022-06-23] MEDS ORDERED: fentaNYL (PF) 50 MCG/ML 2 ML AMP ONE (07:52)
[2022-06-23] MEDS ORDERED: GLYCOPYRROLATE 0.2 MG/ML 2 ML VIAL ONE (07:52)
[2022-06-23] MEDS ORDERED: TRANEXAMIC ACID IN NACL,ISO-OS 1,000 MG/100 ML BAG ONE (07:52)
[2022-06-23] MEDS ORDERED: SODIUM CHLORIDE 0.9% 50 ML with ceFAZolin 2,000 MG IV ONE ×2 (07:57)
[2022-06-23] MEDS ORDERED: LACTATED RINGERS 1,000 ML IV ONE (07:57)
[2022-06-23] MEDS: FORMOTEROL FUMARATE 20 MCG/2 ML NEBU INHALATION SCH ×2 (08:15→20:21)
[2022-06-23] MEDS: IPRATROPIUM-ALBUTEROL 3 ML NEB INHALATION SCH ×4 (08:15→20:22)
[2022-06-23] MEDS ORDERED: GELATIN SPONGE,ABSORBABLE 1 GM POWDER TOPICAL ONE (08:51)
[2022-06-23] MEDS ORDERED: THROMBIN (BOVINE) 5,000 UNIT VIAL MISCELLANE ONE (08:52)
[2022-06-23] MEDS ORDERED: IOPAMIDOL M200 10 ML VIAL MISCELLANE ONE (09:02)
[2022-06-23] MEDS ORDERED: CYCLOBENZAPRINE 5 MG TAB PO PRN (09:37)
[2022-06-23] MEDS ORDERED: SENNOSIDES-DOCUSATE SODIUM 1 EACH TAB PO PRN (09:37)
[2022-06-23] MEDS ORDERED: MAGNESIUM HYDROXIDE 2,400 MG/10 ML CUP PO PRN (09:37)
[2022-06-23] MEDS ORDERED: HYDROcodone/APAP 5-325MG 1 EACH TAB PO PRN (09:37)
[2022-06-23] MEDS ORDERED: HYDROmorphone 0.5 MG/0.5 ML SYRINGE IVP ONE ×3 (09:48→10:20)
[2022-06-23] MEDS ORDERED: METOPROLOL TARTRATE 5 MG/5 ML VIAL IVP ONE (10:10)
[2022-06-23] MEDS: HYDROmorphone 0.5 MG/0.5 ML SYRINGE IVP PRN ×2 (11:04→22:53)
[2022-06-23] MEDS: amLODIPine 10 MG TAB PO SCH (11:44)
[2022-06-23] MEDS: LACOSAMIDE 50 MG TABLET PO SCH ×2 (11:44→16:44)
[2022-06-23] MEDS: METOPROLOL TARTRATE 12.5 MG TAB PO SCH ×2 (11:45→16:45)
[2022-06-23] MEDS: ACETAMINOPHEN TAB 325 MG TAB PO SCH ×3 (13:22→22:51)
--- NOTE | 2022-06-23 13:31 | P.OP ---
Date of Procedure: 06/23/22 Preoperative Diagnosis: 1. T11 compression fracture, progressive with posterior extension likely B3 fracture T10-11 2. Severe progressive, refractory back pain 3. Inability to ambulate secondary to #1 Postoperative Diagnosis: 1. T11 compression fracture, progressive with posterior extension likely B3 fracture T10-11 2. Severe progressive, refractory back pain 3. Inability to ambulate secondary to #1 Procedure(s) Performed: 1. T10-T12 segmental stabilization (29869) 2. T11 kyphoplasty with biopsy ([id number]) Use of IONM Implants: -[place] everest screws -Joi cement Anesthesia: GETA Surgeon: Kaden Durand Nursery Laborer #1: Filipe Parker (Was present and assisted with all aspects of the case from positioning to dressing placement. ) Estimated Blood Loss (ml): 50 IV fluids (ml): 1,500 Urine output (ml): 150 Pathology: none sent Condition: stable Disposition: PACU Indications for Procedure: William Carrasco is a 81 yo male presenting for evaluation of severe low back pain, inability to ambulate s/p multiple ffs. It was my pleasure to have seen and examined William Carrasco. In our visit today we have had a chance to go over subjective complaints, physical examination findings and treatments including the natural course history without intervention and various interventional options. The patients imaging demonstrates: CT exam of the thoracolumbar region performed 06/21/2022 as compared to his previous imaging. There is a T11 compression fracture which is 50% compressed. There is extension of the fracture apparently posteriorly through the pedicles on the right-hand side of T11. There is likely posterior ligamental involvement as well making this more of a 3 column type fracture. Between T10 and T11 the disc space is showing signs of disruption with vacuum disc and increased fishmouthing. This is a change from his previous exams with progression of his fracture as well as likely instability. This affects the alignment at the thoracolumbar junction with kyphosis at the segment that fractured. There is widespread spondylosis of the lower lumbar spine but no other fractures noted. Bring degrees of foraminal and central stenosis are noted as well. No lesions. On physical exam, William demonstrates severe back pain, inability to ambulate due to the pain and feeling of instability. I have explained to the patient that as their condition progresses it will cause further neurological deficits and eventual paralysis. Based on the patients imaging, physical exam, and the rapid progression and disabling nature of their symptoms, at this time I recommend surgery in the form or a: T9-L1 stabilization with T11 kyphoplasty. I discussed the risk and benefits of this procedure at length with William and his . The patient and his agreed to considered pursuing the procedure abovementioned. Prior to surgery, she should follow up with her PCP (Cardio, ID, IM etc) for clearance. Questions were invited and answered, and the patient wishes to proceed as outlined below. Currently, I am recommendin. T9-L1 stabilization with T11 kyphoplasty Description of Procedure: The patient was seen and examined in the preoperative area. All preoperative protocols were followed. Informed consent was obtained, risks and benefits of the procedure were discussed at length. Risks including bleeding infection damage to the surrounding tissue and risk of reoperation were discussed with the patient. Risk of anesthesia up to and including was discussed with the patient. These are outlined in the risk review. They were willing to accept these risks and all of the risks of surgery. The patient was given a weight- based dose of antibiotics in the form of 2 g Ancef. The patient was seen and evaluated by the anesthesia team who deemed them fit for surgery. The site was marked, the patient was willing to proceed with the procedure. The patient was transferred to the operative suite by the Department of anesthesia. They were then drifted off to sleep by the department anesthesia and GETA was performed. The patient tolerated this well. [Holder catheter was placed by nursing staff, atraumatically]. Once confirmation of lines and ventilation the patient was transferred to a [prone Franko table very carefully]. All bony prominences including wrists, elbows, axilla, chest, hips, and thighs, and feet were padded very well. Special attention was paid to the genitalia and these were padded accordingly. SCDs were placed on bilateral lower extremities and were connected. Arms were well padded and placed [on arm boards up and out in the 90/90 position]. Once in position, again we confirmed good ventilation capabilities and that lines were running appropriately. The patient's thoracolumbar spine was then exposed. 1010s were placed outlining the incision site. Standard alcohol was used to clean the incision site and allowed to dry. C-arm was used to needle localize T11 and then biomark the patient and confirm level for incision which was marked with a skin marker. Operative briefing was performed with all teams and everyone in agreement to proceed. The patient was then prepped and draped in a normal sterile fashion. Timeout was then performed and all parties were in agreement with the procedure to be performed. Needle was then placed again sterilely at the T11 region. The Spine mask was placed and registered. It was then draped in a 3-D C-arm and was obtained from the area of interest for [employer] navigation. Once then was registered and confirmed to be accurately navigated Jamshidi was placed into bilateral pedicles at T10 followed by a wire and Jamshidi was removed we then placed him into T12 bilaterally and then placed wires and the void. AP and lateral imaging confirmed good placement of wires. We then navigated screws over these wires into position in the levels indicated. The screws were tested and all tested above 20 mA. AP and lateral confirmed good placement of screws. We then proceeded with biopsy and kyphoplasty of T11 needle was removed and a Jamshidi was introduced into T11 to advance the vertebral body. We then performed a biopsy of the vertebral body using a biopsy needle. We then performed drilling and curettage and balloon kyphoplasty of T11. We did obtain an increase in the superior endplate that was reduced 3-4 mm back in the position. We then fill this void with cement. All screws were then cemented into position through the cement cannulas. The patient remained stable throughout cementation and there w as no cement extravasation angiogram a myelogram. We then sized and selected rods for the area rods were then placed subfascially through the t[place]ips of each screw. Set screws were then placed and all screws to secure the rods bilaterally. Set screws were then final tightened and tabs broken off the screws. Final imaging confirmed good placement of rods and screws, good reduction and stabilization. We irrigated the wounds thoroughly with normal sterile saline. The deep fascia was closed with 0 Vicryl superficial subcu closed with 2-0 Vicryl and skin closed with skin yesenia the wound edges approximated very well. wounds were then cleaned and sterilely dressed without dressings. The patient was transferred back to their hospital bed atraumatically. Patient was then awakened and extubated by the department of anesthesia having tolerated the procedure very well with no complications. They were transferred to the postoperative care unit in stable condition.
[2022-06-23] MEDS: HYDROmorphone 1 MG/ML 1 ML SYRINGE IVP PRN (16:45)
[2022-06-23] MEDS: GABAPENTIN 300 MG CAP PO SCH ×2 (16:45→22:52)
--- NOTE | 2022-06-23 18:47 | CT ---
EXAMINATION TYPE: CT thoracic spine wo con DATE OF EXAM: 06/23/2022 COMPARISON: 06/21/2022 HISTORY: S/P T-11-L1 MIS stablization T12 fracture. Post op. CT DLP: 1255.4 mGycm Automated exposure control for dose reduction was used. Images obtained from the level of T1-L1 vertebra with no contrast. The thoracic vertebrae have normal alignment. There is vertebroplasty at T11 and T12 and L1 with ante rior wedging of 25%. There is rods and screws fusing posteriorly the thoracic spine T11-L1. There is mild osteopenia. There are posterior skin yesenia. There is bilateral pleural effusions and basilar p ulmonary infiltrates and atelectasis. IMPRESSION: Multilevel posterior fusion surgery. Vertebral plasties. No significant change in height of the verte bra compared to recent exam. No definite complicating process seen.
--- NOTE | 2022-06-23 18:52 | CT ---
EXAMINATION TYPE: CT lumbar spine wo con DATE OF EXAM: 06/23/2022 COMPARISON: 06/21/2022 HISTORY: S/P T-11-L1 MIS stablization T12 fracture. Post op. CT DLP: 949.5 mGycm Automated exposure control for dose reduction was used. Images obtained from T12 to S1 vertebra with no contrast. There is posterior fusion surgery from T12 to T10. There is vertebroplasty at all 3 levels. The lumbar vertebrae have normal alignment. There is some depression of the superior endplate of L1 1 0%. There is hypertrophic multilevel lumbar facet arthropathy. There is inferior vena cava filter. Sa croiliac joints are intact. There is no paraspinal mass. IMPRESSION: Minimal compression of L1 vertebra without change.
[2022-06-23] MEDS: ATORVASTATIN 40 MG TAB PO SCH (22:51)
[2022-06-23] MEDS: DONEPEZIL 10 MG TAB PO SCH (22:52)
[2022-06-23] MEDS: HYDROcodone/APAP 10-325MG 1 EACH TAB PO PRN (23:28)
[2022-06-24] MEDS: ACETAMINOPHEN TAB 325 MG TAB PO SCH ×3 (05:20→17:43)
[2022-06-24] MEDS: hydrALAZINE HCL 50 MG TAB PO SCH ×4 (05:21→21:26)
[2022-06-24] MEDS: LEVOTHYROXINE 50 MCG TAB PO SCH (05:21)
[2022-06-24] MEDS: HYDROmorphone 1 MG/ML 1 ML SYRINGE IVP PRN ×4 (05:21→21:27)
[2022-06-24] MEDS: IPRATROPIUM-ALBUTEROL 3 ML NEB INHALATION SCH ×4 (08:27→20:01)
[2022-06-24] MEDS: FORMOTEROL FUMARATE 20 MCG/2 ML NEBU INHALATION SCH ×2 (08:27→20:01)
[2022-06-24 08:58] LABS: Basophils # (A) 0.04 X 10*3/uL (0.00-0.10); Basophils % (A) 0.5 %; Eosinophils # (A) 0.09 X 10*3/uL (0.04-0.35); Eosinophils % (A) 1.1 %; HCT 40.3 % (39.6-50.0); HGB 12.7 g/dL (13.0-17.0); Immature Grans, Automated 0.4 %; Lymphocytes % (A) 21.5 %; MCH 31.5 pg (27.0-32.0); MCHC 31.5 g/dL (32.0-37.0); Mean Platelet Volume 10.8 fL (9.5-12.2); Monocytes # (A) 0.64 X 10*3/uL (0.20-1.00); Monocytes % (A) 8.1 %; NRBC Per 100 WBC 0 /100 WBCS (0.0-0.0); Neutrophils # (A) 5.39 X 10*3/uL (1.80-7.70); Neutrophils % (A) 68.4 %; Platelet Count 138 X 10*3/uL (140-440); RBC 4.03 X 10*6/uL (4.40-5.60); RDW 12.4 % (11.5-14.5); WBC 7.89 X 10*3/uL (4.50-10.00)
[2022-06-24 09:12] LABS: African American GFR (CKD) 91.2 (60.0-200.0); Anion Gap 7.7 mmol/L (10.00-18.00); BUN/Creat Ratio 14.67 Ratio (12.00-20.00); Blood Urea Nitrogen 13.2 mg/dL (9.0-27.0); Calcium 8.6 mg/dL (8.7-10.3); Carbon Dioxide 28.3 mmol/L (20.0-27.5); Non-African American GFR(CKD) 78.7 (60.0-200.0); Potassium 4.3 mmol/L (3.5-5.5)
--- NOTE | 2022-06-24 09:25 | P.PN ---
Subjective Progress Note Date: 06/24/22 Principal diagnosis: 1. T11 compression fracture, progressive with posterior extension likely B3 fracture T10-11 2. Severe progressive, refractory back pain 3. Inability to ambulate secondary to #1 Patient was seen at bedside this morning lying semirecumbent position. Patient says he is in a moderate pain currently. Patient says most the pain is located in the low back. Patient denies radiation of pain down the legs currently. Patient says he has not been up since surgery was performed yesterday. Patient is looking forward to working with therapy today. Patient says he has not had bowel movement yet, however, patient says she has been passing gas. Patient denies chest pain, fever, shortness breath, nausea, vomiting, change in vision, loss of bowel/bladder control. Objective - Vital Signs Vital signs: Vital Signs Temp 98.1 F 06/24/22 07:14 Pulse 86 06/24/22 07:14 Resp 18 06/24/22 07:14 BP 123/64 06/24/22 07:14 Pulse Ox 97 06/24/22 08:22 FiO2 Intake & Output 06/23/22 06/24/22 06/24/22 18:59 06:59 18:59 Intake Total 850 Output Total 295 500 Balance 555 -500 Intake: IV 850 Output: Urine 265 500 Estimated Blood Loss 30 Other: Voiding Method Urinal Indwelling Catheter - Exam Incisions are clean, dry, intact. [place] are well aligned. Surgical dressings are in good place at this time. Sensation is equal, symmetric, bilaterally throughout the upper and lower extremities. Patient does have some moderate tenderness to palpation over incisions. Nontender to palpation throughout rest of exam. Patient has full range motion bilateral upper extremities on exam. Matt brown does have similar range of motion in bilateral knee flexion/extension and bilateral hip flexion/extension due to pain/weakness. Patient has full range motion bilateral ankles in dorsi/plantar flexion. 4+/5 in all major motor was in bilateral upper extremities. 4-/5 in all major motor bilateral lower extremities. Neurovascular status intact bilaterally. Radial pulses intact, 2+ bilaterally. Cap refill under 3 seconds in digits upper extremities. Negative Homans bilaterally. - Labs CBC & Chem 7: 06/24/22 04:11 06/24/22 04:11 Labs: Abnormal Lab Results - Last 24 Hours (Table) 06/24/22 06/24/22 Range/Units 04:11 04:11 RBC 4.03 L (4.40-5.60) X 10*6/uL Hgb 12.7 L (13.0-17.0) g/dL MCV 100.0 H (80.0-97.0) fL MCHC 31.5 L (32.0-37.0) g/dL Plt Count 138 L (140-440) X 10*3/uL Carbon Dioxide 28.3 H (20.0-27.5) mmol/L Anion Gap 7.70 L (10.00-18.00) mmol/L Calcium 8.6 L (8.7-10.3) mg/dL Assessment and Plan Assessment: 1. T11 compression fracture, progressive with posterior extension likely B3 fracture T10-11 2. Severe progressive, refractory back pain 3. Inability to ambulate secondary to #1 - Postop day #1 status post T 10T12 segmental stabilization; T11 kyphoplasty with biopsy Plan: 1. T11 compression fracture, progressive with posterior extension likely B3 fracture T10-11; Severe progressive, refractory back pain; Inability to ambulate secondary to #1 - surgery performed yesterday, Saturday, 06/[id number] segment stabilization; T11 kyphoplasty with biopsy. Patient stable bedside this morning. Plan for patient to work physical therapy later today. Pain medication as needed. We'll continue to follow patient during his stay in the hospital. 2. Appreciate medical management 3. Pain management - gabapentin; Flexeril; [place]; Dilaudid 4. GI prophylaxis - milk of magnesia; senna 5. DVT prophylaxis - mechanical 6. PT/OT - weightbearing as tolerated with walker/assistance 7. Encourage incentive spirometer use 8. Discharge planning - plan for discharge to rehab within the next few days Time with Patient: Less than 30
[2022-06-24] MEDS: GABAPENTIN 300 MG CAP PO SCH ×3 (09:33→21:27)
[2022-06-24] MEDS: LACOSAMIDE 50 MG TABLET PO SCH ×2 (09:33→16:16)
[2022-06-24] MEDS: METOPROLOL TARTRATE 12.5 MG TAB PO SCH ×2 (09:33→16:16)
[2022-06-24] MEDS: amLODIPine 10 MG TAB PO SCH (09:33)
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
[2022-06-24] MEDS: ATORVASTATIN 40 MG TAB PO SCH (21:27)
[2022-06-24] MEDS: DONEPEZIL 10 MG TAB PO SCH (21:27)
[2022-06-25] MEDS: HYDROmorphone 1 MG/ML 1 ML SYRINGE IVP PRN ×2 (00:07→04:27)
[2022-06-25] MEDS: ACETAMINOPHEN TAB 325 MG TAB PO SCH ×4 (00:08→17:36)
[2022-06-25] MEDS: LEVOTHYROXINE 50 MCG TAB PO SCH (06:04)
[2022-06-25] MEDS: hydrALAZINE HCL 50 MG TAB PO SCH ×4 (06:04→22:12)
[2022-06-25] MEDS: FORMOTEROL FUMARATE 20 MCG/2 ML NEBU INHALATION SCH ×2 (08:45→19:40)
[2022-06-25] MEDS: IPRATROPIUM-ALBUTEROL 3 ML NEB INHALATION SCH ×4 (08:46→19:40)
--- NOTE | 2022-06-25 08:54 | P.PN ---
Subjective Progress Note Date: 06/25/22 Principal diagnosis: T11 compression fracture, progressive with posterior extension likely B3 fracture T10-11 Severe progressive, refractory back pain Inability to ambulate secondary to #1 Patient seen and examined this morning. Patient was resting in bed. He states he has not been up since procedure. Encouraged patient to work with physical therapy today. Patient is able to follow directions and performed by exercises. He denies any numbness or tingling to bilateral lower extremities. Vásquez catheter present, may be removed today. Surgical dressing is clean dry and intact. Patient has been afebrile, denies nausea/vomiting, or chest pain. Objective - Vital Signs Vital signs: Vital Signs Temp 98.2 F 06/25/22 07:26 Pulse 98 06/25/22 07:26 Resp 16 06/25/22 07:26 BP 115/63 06/25/22 07:26 Pulse Ox 96 06/25/22 01:29 FiO2 Intake & Output 06/24/22 06/25/22 06/25/22 18:59 06:59 18:59 Output Total 400 Balance -400 Output: Urine 400 Other: Voiding Method Indwelling Catheter Indwelling Catheter - Exam Physical Examination General: The patient is awake and alert, in no acute distress Skin: Skin is warm and dry with no obvious rashes or lesions. Hairy patches absent, no dorsal skin dimples, no cafe au lait spots. Surgical incision to thoracic spine, dressing clean dry and intact. Eye: Pupils are equal, round and reactive to light, extra-ocular movements are intact; there is normal conjunctiva bilaterally. Neck: The neck is supple, there is no tenderness and ROM intact. Cardiovascular: There is a regular rate and rhythm. No murmur, rub or gallop is appreciated. Respiratory: Lungs are clear to auscultation, respirations are non-labored, breath sounds are equal. Gastrointestinal: Soft, non-distended, non-tender abdomen. Back: There is no tenderness to palpation in the midline, paralumbar, parathoracic or buttocks region. There is no obvious deformity . Musculoskeletal: ROM limited secondary to pain and stiffness from surgical procedure. Muscle strength in all major muscle groups of bilateral upper extremities 4/5, bilateral lower extremities 4/5. Neurological: CN 2-12 intact. There are no obvious motor or sensory deficits. Movement and coordination equal and intact. Sensory exam to light touch intact C5-T1 and intact from L2-S1. Reflexes 2/4 in bilateral upper and lower extremities. Negative Hoffmans, babinski, and clonus signs. Psychiatric: Cooperative, appropriate mood & affect, normal judgment. - Labs CBC & Chem 7: 06/24/22 04:11 06/24/22 04:11 Labs: Abnormal Lab Results - Last 24 Hours (Table) 06/24/22 06/24/22 Range/Units 04:11 04:11 RBC 4.03 L (4.40-5.60) X 10*6/uL Hgb 12.7 L (13.0-17.0) g/dL MCV 100.0 H (80.0-97.0) fL MCHC 31.5 L (32.0-37.0) g/dL Plt Count 138 L (140-440) X 10*3/uL Carbon Dioxide 28.3 H (20.0-27.5) mmol/L Anion Gap 7.70 L (10.00-18.00) mmol/L Calcium 8.6 L (8.7-10.3) mg/dL Assessment and Plan Assessment: Postop day 2: status post T10T12 segmental stabilization; T11 kyphoplasty with biopsy T11 compression fracture, progressive with posterior extension likely B3 fracture T10-11 Severe progressive, refractory back pain Inability to ambulate secondary to #1 Plan: -Appreciate application support consultant and team management. -Activity: Ambulate QID, OOB all meals, up and about, limit lifting bending twisting to less than 5 lbs. Use walker or cane if needed for stability. -Daily PT/OT, increase ambulation strength and balance. -TLSO Brace when up and about, not needed in bed or chair -Pain control: Adequate at this time -Meds: reviewed -GI ppx: senna, Miralax -DC vásquez today -DVT PPX: Heparin -Hygiene: Shower today. Maintain dressing clean and dry. -Encourage IS 10x/hr -Dispo: Anticipate discharge DENYS today or tomorrow, when bed available. *I reviewed and discussed this case with my attending Dr. Durand, whom has reviewed this chart and films and is in agreement with assessment and plan of care as outlined above. I have personally seen and examined the patient, performed the documentation and the assessment and plan as written. Number of minutes spent on the visit: 15m.
[2022-06-25] MEDS: GABAPENTIN 300 MG CAP PO SCH ×3 (09:09→22:12)
[2022-06-25] MEDS: LACOSAMIDE 50 MG TABLET PO SCH ×2 (09:09→16:15)
[2022-06-25] MEDS: METOPROLOL TARTRATE 12.5 MG TAB PO SCH ×2 (09:09→16:15)
[2022-06-25] MEDS: HYDROcodone/APAP 10-325MG 1 EACH TAB PO PRN ×2 (10:33→17:41)
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
[2022-06-25] MEDS: DONEPEZIL 10 MG TAB PO SCH (22:12)
[2022-06-25] MEDS: ATORVASTATIN 40 MG TAB PO SCH (22:12)
[2022-06-26] MEDS: ACETAMINOPHEN TAB 325 MG TAB PO SCH ×4 (00:04→17:08)
[2022-06-26] MEDS: HYDROmorphone 1 MG/ML 1 ML SYRINGE IVP PRN (05:37)
[2022-06-26] MEDS: LEVOTHYROXINE 50 MCG TAB PO SCH (05:38)
[2022-06-26] MEDS: hydrALAZINE HCL 50 MG TAB PO SCH ×4 (05:38→21:18)
[2022-06-26] MEDS: FORMOTEROL FUMARATE 20 MCG/2 ML NEBU INHALATION SCH ×2 (07:58→19:45)
[2022-06-26] MEDS: IPRATROPIUM-ALBUTEROL 3 ML NEB INHALATION SCH ×4 (07:58→19:45)
[2022-06-26 08:50] LABS: Basophils # (A) 0.04 X 10*3/uL (0.00-0.10); Basophils % (A) 0.6 %; Eosinophils # (A) 0.14 X 10*3/uL (0.04-0.35); Eosinophils % (A) 2.2 %; HCT 42.6 % (39.6-50.0); HGB 13.7 g/dL (13.0-17.0); Immature Grans, Automated 0.5 %; Lymphocytes # (A) 1.24 X 10*3/uL (0.90-5.00); Lymphocytes % (A) 19.7 %; MCH 32.6 pg (27.0-32.0); MCHC 32.2 g/dL (32.0-37.0); MCV 101.4 fL (80.0-97.0); Monocytes % (A) 9.6 %; NRBC Per 100 WBC 0 /100 WBCS (0.0-0.0); Neutrophils # (A) 4.23 X 10*3/uL (1.80-7.70); Neutrophils % (A) 67.4 %; Platelet Count 128 X 10*3/uL (140-440); RDW 12.2 % (11.5-14.5); WBC 6.28 X 10*3/uL (4.50-10.00)
[2022-06-26] MEDS: METOPROLOL TARTRATE 12.5 MG TAB PO SCH ×2 (08:59→17:07)
[2022-06-26] MEDS: LACOSAMIDE 50 MG TABLET PO SCH ×2 (08:59→17:07)
[2022-06-26] MEDS: GABAPENTIN 300 MG CAP PO SCH ×3 (08:59→21:18)
[2022-06-26 09:03] LABS: African American GFR (CKD) 95.7 (60.0-200.0); Anion Gap 10.3 mmol/L (10.00-18.00); Blood Urea Nitrogen 11.2 mg/dL (9.0-27.0); Calcium 9.1 mg/dL (8.7-10.3); Carbon Dioxide 27.7 mmol/L (20.0-27.5); Non-African American GFR(CKD) 82.6 (60.0-200.0); Potassium 3.9 mmol/L (3.5-5.5)
--- NOTE | 2022-06-26 09:08 | P.PN ---
Subjective Progress Note Date: 06/26/22 Principal diagnosis: T11 compression fracture, progressive with posterior extension likely B3 fracture T10-11 Severe progressive, refractory back pain Inability to ambulate secondary to #1 Patient seen and examined this morning. Patient is resting in bed laying on his left side. Patient is able to reposition himself in bed. He states he does not remember if he has worked with PT/OT. Encouraged patient to work with physical therapy today. He denies any numbness or tingling to bilateral lower extremities. Surgical dressing is clean dry and intact. Patient may be dis charged today to [facility] pending auth. Patient has been afebrile, denies nausea/vomiting, or chest pain. Objective - Vital Signs Vital signs: Vital Signs Temp 97.6 F 06/26/22 08:21 Pulse 100 06/26/22 08:21 Resp 16 06/26/22 08:21 BP 123/78 06/26/22 08:21 Pulse Ox 95 06/26/22 08:21 FiO2 Intake & Output 06/25/22 06/26/22 06/26/22 18:59 06:59 18:59 Output Total 200 400 Balance -200 -400 Output: Urine 200 400 Other: Voiding Method Indwelling Catheter # Voids 1 - Labs CBC & Chem 7: 06/26/22 04:59 06/26/22 04:59 Labs: Abnormal Lab Results - Last 24 Hours (Table) 06/26/22 06/26/22 Range/Units 04:59 04:59 RBC 4.20 L (4.40-5.60) X 10*6/uL MCV 101.4 H (80.0-97.0) fL MCH 32.6 H (27.0-32.0) pg Plt Count 128 L (140-440) X 10*3/uL Carbon Dioxide 27.7 H (20.0-27.5) mmol/L Assessment and Plan Assessment: Postop day 3: status post T10T12 segmental stabilization; T11 kyphoplasty with biopsy T11 compression fracture, progressive with posterior extension likely B3 fracture T10-11 Severe progressive, refractory back pain Inability to ambulate secondary to #1 Plan: -Appreciate provider contracting consultant and team management. -Activity: Ambulate QID, OOB all meals, up and about, limit lifting bending twisting to less than 5 lbs. Use walker or cane if needed for stability. -Daily PT/OT, increase ambulation strength and balance. -TLSO Brace when up and about, not needed in bed or chair -Pain control: Adequate at this time -Meds: reviewed -GI ppx: senna, Miralax -DC vásquez today -DVT PPX: Heparin -Hygiene: Shower today. Maintain dressing clean and dry. -Encourage IS 10x/hr -Dispo: Anticipate discharge DENYS today pending auth. *I reviewed and discussed this case with my attending Dr. Durand, whom has reviewed this chart and films and is in agreement with assessment and plan of care as outlined above. I have personally seen and examined the patient, performed the documentation and the assessment and plan as written. Number of minutes spent on the visit: 15m.
[2022-06-26] MEDS: HYDROcodone/APAP 10-325MG 1 EACH TAB PO PRN ×2 (09:09→17:08)
[2022-06-26] MEDS ORDERED: polyethylene glycoL 3350 17 GM POWD.PACK PO STA (10:38)
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
[2022-06-26 14:00] VITALS: BMI 26.6
[2022-06-26 15:10] VITALS: RESP 18
[2022-06-26] MEDS: DONEPEZIL 10 MG TAB PO SCH (21:18)
[2022-06-26] MEDS: ATORVASTATIN 40 MG TAB PO SCH (21:18)
[2022-06-27] MEDS: ACETAMINOPHEN TAB 325 MG TAB PO SCH ×3 (00:14→13:08)
[2022-06-27] MEDS: hydrALAZINE HCL 50 MG TAB PO SCH ×2 (05:21→13:08)
[2022-06-27] MEDS: LEVOTHYROXINE 50 MCG TAB PO SCH (05:21)
[2022-06-27] MEDS: IPRATROPIUM-ALBUTEROL 3 ML NEB INHALATION SCH ×3 (07:53→14:57)
[2022-06-27] MEDS: FORMOTEROL FUMARATE 20 MCG/2 ML NEBU INHALATION SCH (07:53)
--- NOTE | 2022-06-27 08:31 | P.PN ---
Progress Note - Text Progress Note Date: 06/27/22 Pt is stable for DC back to facility DENYS. Hopefully today.
[2022-06-27] MEDS: LACOSAMIDE 50 MG TABLET PO SCH (08:45)
[2022-06-27] MEDS: METOPROLOL TARTRATE 12.5 MG TAB PO SCH (08:45)
[2022-06-27] MEDS: HYDROcodone/APAP 10-325MG 1 EACH TAB PO PRN ×2 (08:45→15:21)
[2022-06-27] MEDS: GABAPENTIN 300 MG CAP PO SCH (08:45)
--- NOTE | 2022-06-27 10:13 | P.DS ---
Providers Date of admission: 06/21/22 17:25 Expected date of discharge: 06/27/22 Attending physician: aKden Durand DO Consults: 06/21/22 17:23 Consult Physician Routine Consulting Provider: Jose Marx Reason/Comments: medicine consult Do you want consulting provider notified?: Yes Primary care physician: Jose Marx Hospital Course: Date of admission: 06/21/2022 Date of discharge: 06/27/2022 Admission diagnosis: T11 compression fracture, progressive with posterior extension likely B3 fracture T10-11 Discharge diagnosis: Same Attending physician: Dr. Durand Surgical procedures: T10-T12 segmental stabilization, T11 kyphoplasty with biopsy Brief history: Patient is a 81-year-old male who we have been following with regards to T11 compression fracture for the last month. Initial conservative measures were attempted with a brace along with subacute rehab placement. The pain had progressively worsened, surgical possibilities were discussed. Patient underwent a T10-T12 segmental stabilization with kyphoplasty of T11 with biopsy. Hospital course: Details of patient's surgery can be found in operative report. Patient tolerated the procedure well and was subsequently transported to orthopedic floor. Patient's orthopeidc and medical care was provided daily. Patient had daily laboratory tests performed for evaluation of overall blood counts. Patient had daily physical therapy to include strengthening range of motion as well as education with walker ambulation. Patient was noted to have a relatively uneventful postoperative course. Patient reported satisfactory pain control with oral pain medications by postoperative day 1. Patient showed satisfactory progress with physical therapy. Patient moved steadily through the program and had no difficulty meeting the goals by postoperative day 4. Given patient's otherwise satisfactory course and having met physical therapy goals, plan is to discharge patient subacute rehab on postoperative day 4. Discharge condition/disposition: Patient will be discharged to subacute rehab stable condition. Discharge medications: Instructions are given on resumption of patient's normal daily medications per primary care recommendation, in addition patient will be prescribed Goessel 10 mg/325 mg, Flexeril 10 mg, gabapentin 300 mg, senna S, MiraLAX, Duricef 500 mg . Spine Discharge and Recovery Instructions All medication refills should be obtained through your primary care doctor or your clinic spine surgeon. Please discuss prescription refills at your follow up appointment. Do not call the hospital for medication refills. Dressing: Leave your dressing in place for a total of 5 days post operatively. Then you may remove your dressing and leave open to air. Keep the area clean and if not able to keep area clean, then cover with sterile gauze and tape. Showering: You may shower 3 days after your procedure allowing soap and water to run over incision. Do not scrub. Do not soak. Blot dry. Follow up: Please confirm a follow up appointment with your surgeon 3 weeks post operatively. Please make an appointment to follow up with your PCP in 1-2 weeks after surgery for evaluation 3 phase, 3-week plan POST OP WEEKS 1-3 1. Lifting/carrying/pushing/pulling limited to less than 5 pounds. 2. Do not sit for longer than 15 minutes at one time. Get up and walk around. Prolonged sitting is NOT advised. If you lay down, see if you can tolerate laying down on you front (belly side) 3. Walk for periods of 15 minutes = 1 mile but no longer; do it multiple times times each day. 4. Ice your low back after activity. POST OP WEEKS 3-6 1. Lifting limited to less than 20 pounds. 2. Do not sit for longer than 30 minutes at a time. Frequently change positions. Use a sit-to stand workstation or take frequent breaks from sitting if you have returned to work. 3. Walk for 30 minutes each day. If possible, do these three or more times a day POST OP WEEKS 6+ At your 6-week appointment we will give you a physical therapy referral to focus on a core stabilization and strengthening program. You should also work on leg & buttock strengthening, hamstring & quadriceps stretching, and continue a low impact aerobic activity program such as swimming, walking, or riding a stationary bicycle. During the initial 6 weeks after your surgery, you are at the highest risk of re-injuring your spine. You should generally avoid BLTs (bending, lifting and twisting combination motions) and follow the above guidelines to reduce the chance of reinjury. You can anticipate post op appointments in our office at approximately 3 weeks and 6 weeks after your surgery. INCISION CARE: If your incision is not draining you do NOT need to cover it with a dressing. Keep your incision clean, dry and intact. In most cases, we apply skin glue, yesenia or sutures to the incision at the time of surgery. This will be like a crust or have the appearance of a scab and will fall off in time on its own. The stitches or yesenia need to be removed at 3 weeks post op appointment. You may begin to shower 3 days after surgery (this allows the glue to andrews well). However, please avoid scrubbing the incision site or peeling off any of the skin glue. This will ensure optimal healing of your incision. Also, during this time avoid soaking the incision area in water - this includes swimming pools, hot tubs or baths. No ointments, lotions or oils on the incision until your surgeon allows. Leave yesenia, sutures or glue in place. Neurological dysfunction that comes on suddenly can also be a sign of a stroke. Below some common symptoms of a stroke are listed: B - balance difficulty such as sudden onset walking or leaning to one side - NEW E - eye problem such as sudden double vision or trouble seeing on one side - NEW F - Facial weakness or numbness on one side - NEW A - Arm or leg weakness or numbness on one side - NEW S - Slurred speech or difficulty with word finding - NEW T - Time is BRAIN! Call 911 as soon as you recognize these symptoms Diet: Consume a regular diet rich in vegetables and lean protein such as chicken or fish. You should consume in a ratio of approximately 20% fats|40% carbohydrates|40%protein. Vegetables, sweet potatoes, brown rice or quinoa are examples of good carbohydrates. Chips, white bread, cookies and sweets/sugar are examples of bad carbohydrates. Limit your bad carbs, go wild with good carbs. "Life's Simple 7" Guidelines as per [place] [employer] These will help you reclaim your life after surgery and rewinder operator helper in your recovery, keeping in mind your restrictions. (1) Get Active. Physical activity can help people lose weight, control high blood pressure and cholesterol, feel emotionally better, and sleep better. (2) Control Cholesterol. Avoid a diet high in saturated fat, trans fat, & cholesterol. Limit whole milk & cream, ice cream, butter, egg yolks, processed meats (like sausage and hot dogs), and fatty meats. Choose healthy foods that are low in saturated fat, trans fat and cholesterol which include: Fruits and vegetables, fiber rich grain products (like whole grain pasta and brown rice), lean meat such as chicken, fish, nuts, seeds, and legumes. (3) Eat Better. Eat small portions. Shop at the grocery with a list and do not stray from it. Tips for a healthy diet include: Limit sodium intake to less than 1500mg daily, avoid prepackaged, processed, and fast foods, choose a diet rich in fruits, vegetables, and whole grain, high fiber foods, and limit saturated & cholesterol in your diet. (4) Manage Blood Pressure. If you have high blood pressure, you should have a cuff at home so that you can check your blood pressure regularly. Be sure you have a good cuff. An arm one is generally better than a wrist one. Bring the cuff to a doctor's appointment to validate that the measurements that your cuff are taking are accurate. Take your blood pressure twice daily when you are sitting down and relaxing. Record the numbers in a log and bring this log with you to your doctors' appointments. (5) Lose Weight if your BMI is above 25. A healthy BMI is between 19-25. To calculate Your BMI, you may use a Standard BMI Calculator on the NIH BMI website: <www.nhlbi.nih.gov/guidelines/obesity/BMI/bmicalc.htm>. Weigh oneself daily. If you are overweight, set a goal to lose weight. A pound a week loss if needed is a good target. (6) Reduce Blood Sugar. Limit foods and liquids with "added sugars." (Added sugars include sucrose, fructose, glucose, maltose, dextrose, high fructose corn syrup, corn syrup, concentrated fruit juice and honey). (7) Stop Smoking. If you smoke, quitting smoking is one of the best things that you can do for your health. Smoking increases your risk of heart attack, stroke, and peripheral vascular disease, which is a build-up of plaque in your arteries. Please discard all the cigarettes and lighters in your house. Have a plan for what you will do when you have the urge to smoke. Direct and second- hand smoke shortens your life as well as the lives of your family, friends and others around you. For your health and the health of those around you, please consider quitting! Proper Bending Body Mechanics: Maintain a wide stance with one foot slightly in front of the other. Keep your back straight. Bend utilizing the strength in your hips and knees. Do not bend at the waist. Maintain the lifted object at your waist-level close to your body. Avoid lifting weight that causes immediately pain or pain anywhere in the body afterwards. Smoking/Nicotine If there was ever one thing that you could do to increase your overall health, decrease your risk of cardiovascular problems by about 39% the second you make the choice, it is to STOP SMOKING. Your body's most instant gratification is the second you stop smoking. We have all heard the studies, read the articles but it is true, smoking is extremely bad for your overall health, and moreover it is detrimental to your bone health. Nicotine, IN ANY FORM, kills bone cells, prevents your body from healing fractures, and significantly prolongs healing after surgery. In spine surgery specifically, it increases your risk of not healing your bones to create a fusion and increases your risk of having a revision surgery due to this up to 60%. I know it is hard. I know it feels impossible. But there are ways. Take control of your life. We are here to help you through it. And when you are ready, ask us and we can direct you to help if you desire. Use the START Plan to Quit Smoking (please visit the Helpguide.org website listed below for more information): S = Set a quit date. Choose a date within the next 2 weeks, so you have enough time to prepare without losing your motivation to quit. If you mainly smoke at work, quit on the weekend, so you have a few days to adjust to the change. T = Tell family, friends, and co-workers that you plan to quit. Let your friends and family in on your plan to quit smoking and tell them you need their support and encouragement to stop. Look for a quit yury who wants to stop smoking as well. You can help each other get through the rough times. A = Anticipate and plan for the challenges you'll face while quitting. Most people who begin smoking again do so within the first 3 months. You can help yourself make it through by preparing ahead for common challenges, such as nicotine withdrawal and cigarette cravings. R = Remove cigarettes and other tobacco products from your home, car, and work. Throw away all your cigarettes (no emergency pack!), lighters, ashtrays, and matches. Wash your clothes and freshen up anything that smells like smoke. Shampoo your car, clean your drapes and carpet, and steam your furniture. T = Talk to your doctor about getting help to quit. Your doctor can prescribe medication to help with withdrawal and suggest other alternatives. If you can't see a doctor, you can get many products over the counter at your local pharmacy or grocery store, including the nicotine patch, nicotine lozenges, and nicotine gum. Resources for Quitting Smoking: <https://www.[place].gov/documents/[facility]/Quit_Tobacco_Resources_for_patients_313 480_7.pdf> Supplementation: Take recommended dosages of Vitamin D and Calcium to help fortify your bones and help them to heal. See your health maintenance packet for dosages and recommended levels. DVT/VTE prophylaxis: You will be given compression stockings from the hospital. Wear these daily for the first two weeks after surgery. You may take them off at night. You may be prescribed a medication to help thin your blood. Take this as directed. If you are not prescribed this medication, early and frequent ambulation has been shown to be the best prophylaxis to deep vein thrombosis and sequelae related to this event. Procedures: T10-T12 segmental stabilization T11 kyphoplasty with biopsy Patient Condition at Discharge: Fair Plan - Discharge Summary Discharge Rx Participant: No New Discharge Prescriptions: New HYDROcodone/APAP 10-325MG [Goessel 10-325] 1 tab PO Q6HR PRN #21 tab PRN Reason: Pain cefaDROXiL [Duricef] 500 mg PO Q12HR 5 Days #10 cap Sennosides/Docusate Sodium [Senna Plus 8.6-50 mg Softgel] 1 each PO DAILY #20 cap polyethylene glycoL 3350 [Miralax] 17 gm PO DAILY PRN #21 packet PRN Reason: Constipation Gabapentin 300 mg PO TID #21 cap Cyclobenzaprine [Flexeril] 5 mg PO TID #21 tablet No Action Multivitamins, Thera [Multivitamin (formulary)] 1 tab PO DIRECTED Levothyroxine Sodium [Synthroid] 50 mcg PO DAILY@0600 Atorvastatin [Lipitor] 40 mg PO HS@2100 Albuterol Sulfate [Ventolin HFA] 2 puff INHALATION RT-Q4H PRN PRN Reason: Shortness Of Breath Na Phos,M-B/Na Phos,Di-Ba [Fleet Adult] 133 ml RECTAL DAILY PRN PRN Reason: Constipation Nystatin [Nystatin Oral Susp] 5 ml PO QID@08,,, hydrALAZINE HCL [Apresoline] 50 mg PO QID@,,, Metoprolol Tartrate [Lopressor] 12.5 mg PO BID@0800,1700 Chlorhexidine Gluconate [Hibiclens] 1 applic TOPICAL HS amLODIPine [Norvasc] 10 mg PO DAILY@0800 Magnesium 250 mg PO DAILY@1200 Umeclidinium Brm/Vilanterol Tr [Anoro Ellipta 62.5-25 Mcg INH] 1 puff INHALATION RT-DAILY@0800 Donepezil 23mg 23 mg PO HS@2100 Sennosides/Docusate Sodium [Senna Plus 8.6-50 mg Tablet] 2 tab PO HS@2100 Ondansetron Odt [Zofran Odt] 8 mg PO Q8HR #6 tab HYDROcodone/APAP 10-325MG [Goessel 10-325] 1 tab PO Q4H PRN #6 tab PRN Reason: Pain methocarbamoL [Methocarbamol] 750 mg PO BID PRN PRN Reason: Muscle Pain bisacodyL [Dulcolax] 10 mg RECTAL DAILY PRN PRN Reason: Constipation Ipratropium-Albuterol Nebulize [Duoneb 0.5 mg-3 mg/3 ml Soln] 3 ml INHALATION RT-QID@08,,, Lacosamide [Vimpat] 100 mg PO BID@0800,1700 Ensure Enlive 237 ml PO TID@,, Heparin Sodium,Porcine [Heparin Sodium] 5,000 unit SQ DIRECTED methocarbamoL [Robaxin-750] 750 mg PO HS@2100 Magnesium Hydroxide [Milk of Magnesia Concentrate] 7,200 mg PO DAILY PRN PRN Reason: Constipation Discharge Medication List Atorvastatin [Lipitor] 40 mg PO HS@2100 09/15/15 [History] Levothyroxine Sodium [Synthroid] 50 mcg PO DAILY@0600 09/15/15 [History] Multivitamins, Thera [Multivitamin (formulary)] 1 tab PO DIRECTED 09/15/15 [History] Magnesium 250 mg PO DAILY@1200 02/10/21 [History] Umeclidinium Brm/Vilanterol Tr [Anoro Ellipta 62.5-25 Mcg INH] 1 puff INHALATION RT-DAILY@0800 02/10/21 [History] Albuterol Sulfate [Ventolin HFA] 2 puff INHALATION RT-Q4H PRN 12/08/21 [History] Donepezil 23mg 23 mg PO HS@209912/08/21 [History] Sennosides/Docusate Sodium [Senna Plus 8.6-50 mg Tablet] 2 tab PO HS@209905/31/22 [History] HYDROcodone/APAP 10-325MG [Goessel 10-325] 1 tab PO Q4H PRN #6 tab 06/05/22 [Rx] Ondansetron Odt [Zofran Odt] 8 mg PO Q8HR #6 tab 06/05/22 [Rx] Chlorhexidine Gluconate [Hibiclens] 1 applic TOPICAL HS 06/21/22 [History] Ensure Enlive 237 ml PO TID@,,06/21/22 [History] Heparin Sodium,Porcine [Heparin Sodium] 5,000 unit SQ DIRECTED 06/21/22 [History] Ipratropium-Albuterol Nebulize [Duoneb 0.5 mg-3 mg/3 ml Soln] 3 ml INHALATION RT-QID@,,,06/21/22 [History] Lacosamide [Vimpat] 100 mg PO BID@0800,1700 06/21/22 [History] Magnesium Hydroxide [Milk of Magnesia Concentrate] 7,200 mg PO DAILY PRN 06/21/22 [History] Metoprolol Tartrate [Lopressor] 12.5 mg PO BID@0800,1700 06/21/22 [History] Na Phos,M-B/Na Phos,Di-Ba [Fleet Adult] 133 ml RECTAL DAILY PRN 06/21/22 [History] Nystatin [Nystatin Oral Susp] 5 ml PO QID@,,,06/21/22 [History] amLODIPine [Norvasc] 10 mg PO DAILY@0800 06/21/22 [History] bisacodyL [Dulcolax] 10 mg RECTAL DAILY PRN 06/21/22 [History] hydrALAZINE HCL [Apresoline] 50 mg PO QID@06,12,18,22 06/21/22 [History] methocarbamoL [Methocarbamol] 750 mg PO BID PRN 06/21/22 [History] methocarbamoL [Robaxin-750] 750 mg PO HS@2100 06/21/22 [History] Cyclobenzaprine [Flexeril] 5 mg PO TID #21 tablet 06/25/22 [Rx] Gabapentin 300 mg PO TID #21 cap 06/25/22 [Rx] HYDROcodone/APAP 10-325MG [Goessel 10-325] 1 tab PO Q6HR PRN #21 tab 06/25/22 [Rx] Sennosides/Docusate Sodium [Senna Plus 8.6-50 mg Softgel] 1 each PO DAILY #20 cap 06/25/22 [Rx] cefaDROXiL [Duricef] 500 mg PO Q12HR 5 Days #10 cap 06/25/22 [Rx] polyethylene glycoL 3350 [Miralax] 17 gm PO DAILY PRN #21 packet 06/27/22 [Rx] Follow up Appointment(s)/Referral(s): Reji Yeboah MD [Medical Doctor] - 1-2 days Barbara Duenas [NON-STAFF] - As Needed Kaden Durand DO [Doctor of Osteopathic Medicine] - 2 Weeks Activity/Diet/Wound Care/Special Instructions: Spine Discharge and Recovery Instructions Date of Surgery: 06/23/2022 Diagnosis: 1. T11 compression fracture, progressive with posterior extension likely B3 fracture T10-11 2. Severe progressive, refractory back pain 3. Inability to ambulate secondary to #1 Procedure: 1. T10-T12 segmental stabilization 2. T11 kyphoplasty with biopsy Medications: See medication list All medication refills should be obtained through your primary care doctor or your clinic spine surgeon. Please discuss prescription refills at your follow up appointment. Do not call the hospital for medication refills. Dressing: Leave your dressing in place for a total of 5 days post operatively. Then you may remove your dressing and leave open to air. Keep the area clean and if not able to keep area clean, then cover with sterile gauze and tape. Showering: You may shower 3 days after your procedure allowing soap and water to run over incision. Do not scrub. Do not soak. Blot dry. Follow up: Please confirm a follow up appointment with your surgeon 3 weeks post operatively. Please make an appointment to follow up with your PCP in 1-2 weeks after surgery for evaluation 3 phase, 3-week plan POST OP WEEKS 1-3 1. Lifting/carrying/pushing/pulling limited to less than 5 pounds. 2. Do not sit for longer than 15 minutes at one time. Get up and walk around. Prolonged sitting is NOT advised. If you lay down, see if you can tolerate laying down on you front (belly side) 3. Walk for periods of 15 minutes = 1 mile but no longer; do it multiple times times each day. 4. Ice your low back after activity. POST OP WEEKS 3-6 1. Lifting limited to less than 20 pounds. 2. Do not sit for longer than 30 minutes at a time. Frequently change positions. Use a sit-to stand workstation or take frequent breaks from sitting if you have returned to work. 3. Walk for 30 minutes each day. If possible, do these three or more times a day POST OP WEEKS 6+ At your 6-week appointment we will give you a physical therapy referral to focus on a core stabilization and strengthening program. You should also work on leg & buttock strengthening, hamstring & quadriceps stretching, and continue a low impact aerobic activity program such as swimming, walking, or riding a stationary bicycle. During the initial 6 weeks after your surgery, you are at the highest risk of re-injuring your spine. You should generally avoid BLTs (bending, lifting and twisting combination motions) and follow the above guidelines to reduce the chance of reinjury. You can anticipate post op appointments in our office at approximately 3 weeks and 6 weeks after your surgery. INCISION CARE: If your incision is not draining you do NOT need to cover it with a dressing. Keep your incision clean, dry and intact. In most cases, we apply skin glue, yesenia or sutures to the incision at the time of surgery. This will be like a crust or have the appearance of a scab and will fall off in time on its own. The stitches or yesenia need to be removed at 3 weeks post op appointment. You may begin to shower 3 days after surgery (this allows the glue to andrews well). However, please avoid scrubbing the incision site or peeling off any of the skin glue. This will ensure optimal healing of your incision. Also, during this time avoid soaking the incision area in water - this includes swimming pools, hot tubs or baths. No ointments, lotions or oils on the incision until your surgeon allows. Leave yesenia, sutures or glue in place. Neurological dysfunction that comes on suddenly can also be a sign of a stroke. Below some common symptoms of a stroke are listed: B - balance difficulty such as sudden onset walking or leaning to one side - NEW E - eye problem such as sudden double vision or trouble seeing on one side - NEW F - Facial weakness or numbness on one side - NEW A - Arm or leg weakness or numbness on one side - NEW S - Slurred speech or difficulty with word finding - NEW T - Time is BRAIN! Call 911 as soon as you recognize these symptoms Diet: Consume a regular diet rich in vegetables and lean protein such as chicken or fish. You should consume in a ratio of approximately 20% fats|40% carbohydrates|40%protein. Vegetables, sweet potatoes, brown rice or quinoa are examples of good carbohydrates. Chips, white bread, cookies and sweets/sugar are examples of bad carbohydrates. Limit your bad carbs, go wild with good carbs. "Life's Simple 7" Guidelines as per [place] [employer] These will help you reclaim your life after surgery and rewinder operator helper in your recovery, keeping in mind your restrictions. (1) Get Active. Physical activity can help people lose weight, control high blood pressure and cholesterol, feel emotionally better, and sleep better. (2) Control Cholesterol. Avoid a diet high in saturated fat, trans fat, & cholesterol. Limit whole milk & cream, ice cream, butter, egg yolks, processed meats (like sausage and hot dogs), and fatty meats. Choose healthy foods that are low in saturated fat, trans fat and cholesterol which include: Fruits and vegetables, fiber rich grain products (like whole grain pasta and brown rice), lean meat such as chicken, fish, nuts, seeds, and legumes. (3) Eat Better. Eat small portions. Shop at the grocery with a list and do not stray from it. Tips for a healthy diet include: Limit sodium intake to less than 1500mg daily, avoid prepackaged, processed, and fast foods, choose a diet rich in fruits, vegetables, and whole grain, high fiber foods, and limit saturated & cholesterol in your diet. (4) Manage Blood Pressure. If you have high blood pressure, you should have a cuff at home so that you can check your blood pressure regularly. Be sure you have a good cuff. An arm one is generally better than a wrist one. Bring the cuff to a doctor's appointment to validate that the measurements that your cuff are taking are accurate. Take your blood pressure twice daily when you are sitting down and relaxing. Record the numbers in a log and bring this log with you to your doctors' appointments. (5) Lose Weight if your BMI is above 25. A healthy BMI is between 19-25. To calculate Your BMI, you may use a Standard BMI Calculator on the NIH BMI website: <www.nhlbi.nih.gov/guidelines/obesity/BMI/bmicalc.htm>. Weigh oneself daily. If you are overweight, set a goal to lose weight. A pound a week loss if needed is a good target. (6) Reduce Blood Sugar. Limit foods and liquids with "added sugars." (Added sugars include sucrose, fructose, glucose, maltose, dextrose, high fructose corn syrup, corn syrup, concentrated fruit juice and honey). (7) Stop Smoking. If you smoke, quitting smoking is one of the best things that you can do for your health. Smoking increases your risk of heart attack, stroke, and peripheral vascular disease, which is a build-up of plaque in your arteries. Please discard all the cigarettes and lighters in your house. Have a plan for what you will do when you have the urge to smoke. Direct and second- hand smoke shortens your life as well as the lives of your family, friends and others around you. For your health and the health of those around you, please consider quitting! Proper Bending Body Mechanics: Maintain a wide stance with one foot slightly in front of the other. Keep your back straight. Bend utilizing the strength in your hips and knees. Do not bend at the waist. Maintain the lifted object at your waist-level close to your body. Avoid lifting weight that causes immediately pain or pain anywhere in the body afterwards. Smoking/Nicotine If there was ever one thing that you could do to increase your overall health, decrease your risk of cardiovascular problems by about 39% the second you make the choice, it is to STOP SMOKING. Your body's most instant gratification is the second you stop smoking. We have all heard the studies, read the articles but it is true, smoking is extremely bad for your overall health, and moreover it is detrimental to your bone health. Nicotine, IN ANY FORM, kills bone cells, prevents your body from healing fractures, and significantly prolongs healing after surgery. In spine surgery specifically, it increases your risk of not healing your bones to create a fusion and increases your risk of having a revision surgery due to this up to 60%. I know it is hard. I know it feels impossible. But there are ways. Take control of your life. We are here to help you through it. And when you are ready, ask us and we can direct you to help if you desire. Use the START Plan to Quit Smoking (please visit the [employer] website listed below for more information): S = Set a quit date. Choose a date within the next 2 weeks, so you have enough time to prepare without losing your motivation to quit. If you mainly smoke at work, quit on the weekend, so you have a few days to adjust to the change. T = Tell family, friends, and co-workers that you plan to quit. Let your friends and family in on your plan to quit smoking and tell them you need their support and encouragement to stop. Look for a quit yury who wants to stop smoking as well. You can help each other get through the rough times. A = Anticipate and plan for the challenges you'll face while quitting. Most people who begin smoking again do so within the first 3 months. You can help yourself make it through by preparing ahead for common challenges, such as nicotine withdrawal and cigarette cravings. R = Remove cigarettes and other tobacco products from your home, car, and work. Throw away all your cigarettes (no emergency pack!), lighters, ashtrays, and matches. Wash your clothes and freshen up anything that smells like smoke. Shampoo your car, clean your drapes and carpet, and steam your furniture. T = Talk to your doctor about getting help to quit. Your doctor can prescribe medication to help with withdrawal and suggest other alternatives. If you can't see a doctor, you can get many products over the counter at your local pharmacy or grocery store, including the nicotine patch, nicotine lozenges, and nicotine gum. Resources for Quitting Smoking: <https://www.[place].gov/documents/[facility]/Quit_Tobacco_Resources_for_patients_313 480_7.pdf> Supplementation: Take recommended dosages of Vitamin D and Calcium to help fortify your bones and help them to heal. See your health maintenance packet for dosages and recommended levels. DVT/VTE prophylaxis: You will be given compression stockings from the hospital. Wear these daily for the first two weeks after surgery. You may take them off at night. You may be prescribed a medication to help thin your blood. Take this as directed. If you are not prescribed this medication, early and frequent ambulation has been shown to be the best prophylaxis to deep vein thrombosis and sequelae related to this event. Discharge Disposition: TRANSFER TO SNF/ECF
[2022-06-27 14:46] VITALS: BP 139/69; TEMP 98
[2022-06-27 15:13] VITALS: PULSE 78
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
== END 2022-06-27 15:27 | DRG 478 ==
LOC: EC 15:39 → 4SSUR 17:25
PROVIDERS: ADMIT Orthopaedic Surgery; ATTEND Orthopaedic Surgery
PROC: 0PU43JZ Supplement Thoracic Vertebra with Synthetic Substitute, Percutaneous Approach (ICD-10-PCS; 2022-06-23)
PROC: 0PH404Z Insertion of Internal Fixation Device into Thoracic Vertebra, Open Approach (ICD-10-PCS; 2022-06-23)
PROC: 8E0WXBZ Computer Assisted Procedure of Trunk Region (ICD-10-PCS; 2022-06-23)
PROC: 0PB40ZX Excision of Thoracic Vertebra, Open Approach, Diagnostic (ICD-10-PCS; principal; 2022-06-23 08:00)
PROC: 0PS43ZZ Reposition Thoracic Vertebra, Percutaneous Approach (ICD-10-PCS; 2022-06-23 08:00)
DX: S22.080A Wedge compression fracture of T11-T12 vertebra, initial encounter for closed fracture (principal); I45.2 Bifascicular block; M48.04 Spinal stenosis, thoracic region; R54 Age-related physical debility; G40.909 Epilepsy, unspecified, not intractable, without status epilepticus; J44.9 Chronic obstructive pulmonary disease, unspecified; I10 Essential (primary) hypertension; E03.9 Hypothyroidism, unspecified; F32.A Depression, unspecified; Z95.828 Presence of other vascular implants and grafts; M40.205 Unspecified kyphosis, thoracolumbar region; M47.816 Spondylosis without myelopathy or radiculopathy, lumbar region; G89.29 Other chronic pain; E78.5 Hyperlipidemia, unspecified; W07.XXXA Fall from chair, initial encounter; Z74.1 Need for assistance with personal care; G47.33 Obstructive sleep apnea (adult) (pediatric); R29.6 Repeated falls; M53.2X4 Spinal instabilities, thoracic region; Z79.899 Other long term (current) drug therapy; Z79.890 Hormone replacement therapy; Z79.01 Long term (current) use of anticoagulants; Z88.0 Allergy status to penicillin; Z87.820 Personal history of traumatic brain injury; Z87.891 Personal history of nicotine dependence; Z91.81 History of falling
CPT/HCPCS: 36415; 71046; 72128; 72131; 80048; 80053; 85025; 85610; 85730; 87635; 88307; 88311; 93005; 94640; 94760; 96374; 99285

== ENCOUNTER 2023-01-28 19:12 | Emergency (ER) | payer MEDICARE ==
[2023-01-28 19:33] VITALS: TEMP 98
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
[2023-01-28] MEDS ORDERED: SODIUM CHLORIDE 0.9% 1,000 ML IV STA (20:07)
[2023-01-28 20:32] LABS: Basophils % (A) 1 %; Eosinophils # (A) 0.1 k/uL (0-0.7); Eosinophils % (A) 2 %; HCT 42.8 % (39.0-53.0); HGB 14.2 gm/dL (13.0-17.5); Lymphocytes # (A) 1.3 k/uL (1.0-4.8); Lymphocytes % (A) 28 %; MCH 32.7 pg (25.0-35.0); MCHC 33.2 g/dL (31.0-37.0); MCV 98.5 fL (80.0-100.0); Mean Platelet Volume 7.8; Monocytes # (A) 0.3 k/uL (0-1.0); Monocytes % (A) 6 %; Neutrophils # (A) 2.9 k/uL (1.3-7.7); Neutrophils % (A) 61 %; Platelet Count 112 k/uL (150-450); RBC 4.35 m/uL (4.30-5.90); RDW 13.6 % (11.5-15.5); WBC 4.8 k/uL (3.8-10.6)
[2023-01-28 20:44] LABS: ALT 31 U/L (4-49); AST 37 U/L (17-59); African American GFR (CKD) 76 (>60 ml/min/1.73 sqM); Albumin 3.8 g/dL (3.5-5.0); Alkaline Phosphatase 77 U/L (38-126); Anion Gap 8 mmol/L; Blood Urea Nitrogen 27 mg/dL (9-20); Calcium 8.8 mg/dL (8.4-10.2); Carbon Dioxide 25 mmol/L (22-30); Chloride 108 mmol/L (98-107); Glucose 186 mg/dL (74-99); Non-African American GFR(CKD) 66 (>60 ml/min/1.73 sqM); Sodium 141 mmol/L (137-145); Total Bilirubin 0.6 mg/dL (0.2-1.3); Total Protein 6.3 g/dL (6.3-8.2)
--- NOTE | 2023-01-28 21:47 | CT ---
EXAMINATION TYPE: CT brain wo con CT DLP: 1132.4 mGycm, Automated exposure control for dose reduction was used. DATE OF EXAM: 01/28/2023 9:32 PM COMPARISON: 05/27/2022. CLINICAL INDICATION:Male, 82 years old with history of Seizure. TECHNIQUE: Brain: Axial CT images of the brain were obtained with coronal and sagittal reformats created and rev iewed. Contrast used: None. Oral contrast used: None. FINDINGS: Brain: Extra-axial spaces: No abnormal extra-axial fluid collections. Ventricular system: Dilatation in proportion to cerebral atrophy. Cerebral parenchyma: Cerebral atrophy. No acute intraparenchymal hemorrhage or mass effect. The fuchs -white junction is well differentiated. Scattered hypoattenuating areas are seen within the white mat ter. Cerebellum: Unremarkable. Mass effect: No evidence of midline shift. Intracranial vasculature: Atherosclerotic calcifications of the intracranial vessels. Soft tissues: Normal. Calvarium/osseous structures: No depressed skull fracture. Paranasal sinuses and mastoid air cells: Mild scattered paranasal sinus disease. Visualized orbits: Orbital contents are intact. IMPRESSION: 1. No acute intracranial process. 2. Nonspecific white matter changes, likely secondary to chronic small vessel ischemic disease.
[2023-01-28 22:10] VITALS: BP 192/83; PULSE 67; RESP 18
== END 2023-01-28 22:24 | disposition home or self-care (01) ==
LOC: EC 19:12
DX: G40.409 Other generalized epilepsy and epileptic syndromes, not intractable, without status epilepticus (principal); J44.9 Chronic obstructive pulmonary disease, unspecified; E78.5 Hyperlipidemia, unspecified; E03.9 Hypothyroidism, unspecified; I10 Essential (primary) hypertension; F32.A Depression, unspecified; Z87.891 Personal history of nicotine dependence; Z88.0 Allergy status to penicillin; Z79.890 Hormone replacement therapy; Z79.899 Other long term (current) drug therapy
CPT/HCPCS: 36415; 70450; 80053; 83735; 85025; 93005; 96360; 99285

== ENCOUNTER 2023-01-28 22:59 | Observation (INO) | payer MEDICARE ==
[2023-01-28] MEDS ORDERED: NALOXONE 0.4 MG/ML 1 ML VIAL IV PRN (23:26)
[2023-01-28] MEDS ORDERED: LORazepam 2 MG/ML INJ IV PRN (23:27)
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
[2023-01-28 23:36] LABS: Basophils # (A) 0.1 k/uL (0-0.2); Basophils % (A) 1 %; Eosinophils # (A) 0.1 k/uL (0-0.7); Eosinophils % (A) 2 %; HCT 46.3 % (39.0-53.0); HGB 14.8 gm/dL (13.0-17.5); Lymphocytes # (A) 3.2 k/uL (1.0-4.8); Lymphocytes % (A) 40 %; MCH 31.5 pg (25.0-35.0); MCV 98.5 fL (80.0-100.0); Monocytes # (A) 0.4 k/uL (0-1.0); Monocytes % (A) 5 %; Neutrophils # (A) 4.1 k/uL (1.3-7.7); Neutrophils % (A) 51 %; Platelet Count 123 k/uL (150-450); RDW 13.6 % (11.5-15.5); WBC 8.2 k/uL (3.8-10.6)
[2023-01-28 23:44] LABS: African American GFR (CKD) 76 (>60 ml/min/1.73 sqM); Anion Gap 14 mmol/L; Blood Urea Nitrogen 24 mg/dL (9-20); Calcium 8.7 mg/dL (8.4-10.2); Carbon Dioxide 20 mmol/L (22-30); Chloride 108 mmol/L (98-107); Glucose 98 mg/dL (74-99); Non-African American GFR(CKD) 66 (>60 ml/min/1.73 sqM); Potassium 3.7 mmol/L (3.5-5.1); Sodium 142 mmol/L (137-145)
[2023-01-29] MEDS ORDERED: hydrALAZINE HCL 50 MG TAB PO STA (01:22)
[2023-01-29] MEDS: SODIUM CHLORIDE 0.9% 1,000 ML IV SCH (09:24)
[2023-01-29] MEDS ORDERED: LACOSAMIDE 50 MG TABLET PO SCH (11:00)
[2023-01-29] MEDS: PANTOPRAZOLE 40 MG/10 ML VIAL IVP SCH (11:17)
[2023-01-29] MEDS: hydrALAZINE HCL 50 MG TAB PO SCH ×4 (11:17→21:58)
[2023-01-29] MEDS: METOPROLOL TARTRATE 12.5 MG TAB PO SCH ×2 (11:17→21:58)
[2023-01-29] MEDS: LEVOTHYROXINE 50 MCG TAB PO SCH (11:17)
[2023-01-29] MEDS: MELOXICAM 7.5 MG TAB PO SCH (11:48)
[2023-01-29] MEDS: FORMOTEROL FUMARATE 20 MCG/2 ML NEBU INHALATION SCH ×2 (12:13→20:36)
[2023-01-29] MEDS: IPRATROPIUM 0.5 MG/2.5 ML NEBU INHALATION SCH ×4 (12:13→20:36)
[2023-01-29] MEDS: ALPRAZolam 0.5 MG TAB PO PRN (16:55)
[2023-01-29] MEDS ORDERED: ATORVASTATIN 40 MG TAB PO SCH (21:00)
[2023-01-29] MEDS ORDERED: DONEPEZIL 10 MG TAB PO SCH (21:00)
[2023-01-29] MEDS: LACOSAMIDE 150 MG TABLET PO SCH (21:59)
--- NOTE | 2023-01-29 23:12 | EEG ---
ELECTROENCEPHALOGRAM REPORT PREAMBLE: This is an 82-year-old male with seizure. The patient had a 10-minute seizure episode per his . He was diagnosed with seizure about a year ago and is currently on Vimpat 100 mg b.i.d. EEG FINDINGS: This is a 21-channel digital EEG recorded with video component, utilizing 10/20 International System with referential and bipolar montages. Background consists of well-developed, moderately well-regulated, mixed frequencies of 8 to 9 Hz alpha, with some fast frequency beta activity seen in bihemispheric region. Background is posterior dominant and is reactive to eye opening and closing. Intermittent focal slowing in theta and occasional delta was seen in the left hemispheric region. Photic driving response was not seen, however, beyond the 16 Hz flash frequencies, there was brief transient high-amplitude spike-type waves seen in bihemispheric region, left more than right, lasting for less than a second. There was no obvious associated myoclonic twitching noted with it. Drowsiness was seen. Deeper stages of sleep were not seen. No clear-cut focal or generalized epileptiform activity was seen. IMPRESSION: This is an abnormal EEG due to intermittent focal slowing in the left hemispheric region, suggestive of focal cortical neuronal dysfunction. Also, abnormal photic driving response with evidence of high-amplitude spike-type waves seen at the onset of individual photic stimulation beyond 16 Hz lasting for less than a second. No associated motor activity was seen during these waves. Otherwise, no definitive focal or generalized epileptiform activity was seen. If your suspicion for seizure is high, suggest prolonged, sleep-deprived EEG. MMODL / IJN: [id number] /
[2023-01-30] MEDS: SODIUM CHLORIDE 0.9% 1,000 ML IV SCH (02:25)
[2023-01-30] MEDS ORDERED: METOPROLOL TARTRATE 12.5 MG TAB PO STA (04:19)
[2023-01-30] MEDS: LEVOTHYROXINE 50 MCG TAB PO SCH (06:38)
[2023-01-30] MEDS: hydrALAZINE HCL 50 MG TAB PO SCH (07:02)
[2023-01-30] MEDS: ALPRAZolam 0.5 MG TAB PO PRN (07:03)
[2023-01-30] MEDS: METOPROLOL TARTRATE 12.5 MG TAB PO SCH (07:03)
[2023-01-30 07:48] VITALS: RESP 18; TEMP 97.9
[2023-01-30] MEDS: FORMOTEROL FUMARATE 20 MCG/2 ML NEBU INHALATION SCH (08:58)
[2023-01-30] MEDS: IPRATROPIUM 0.5 MG/2.5 ML NEBU INHALATION SCH ×2 (08:58→10:54)
[2023-01-30 09:00] VITALS: BP 145/65
[2023-01-30] MEDS ORDERED: METOPROLOL TARTRATE 25 MG TAB PO SCH (09:00)
[2023-01-30] MEDS ORDERED: amLODIPine 5 MG TAB PO SCH (09:00)
[2023-01-30 09:01] VITALS: PULSE 70
[2023-01-30] MEDS: LACOSAMIDE 150 MG TABLET PO SCH (09:49)
[2023-01-30] MEDS: MELOXICAM 7.5 MG TAB PO SCH (09:49)
[2023-01-30] MEDS: PANTOPRAZOLE 40 MG/10 ML VIAL IVP SCH (09:50)
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
== END 2023-01-30 12:37 | disposition home or self-care (01) ==
LOC: EC 22:59 → 4SSUR 23:27 → INTOOBSV 23:27 → 5NMEDONC 01-29 14:44
PROVIDERS: ADMIT Family Medicine; ATTEND Family Medicine
DX: G40.901 Epilepsy, unspecified, not intractable, with status epilepticus (principal); F03.90 Unspecified dementia, unspecified severity, without behavioral disturbance, psychotic disturbance, mood disturbance, and anxiety; J44.9 Chronic obstructive pulmonary disease, unspecified; E78.5 Hyperlipidemia, unspecified; I10 Essential (primary) hypertension; E03.9 Hypothyroidism, unspecified; G47.33 Obstructive sleep apnea (adult) (pediatric); G89.29 Other chronic pain; M54.50 Low back pain, unspecified; F32.A Depression, unspecified; Z87.820 Personal history of traumatic brain injury; Z87.891 Personal history of nicotine dependence; Z79.899 Other long term (current) drug therapy; Z79.890 Hormone replacement therapy; Z79.82 Long term (current) use of aspirin; Z88.0 Allergy status to penicillin; Z79.1 Long term (current) use of non-steroidal anti-inflammatories (NSAID)
CPT/HCPCS: 96376; 96374; 99285; 36415; 94640 ×3; 94760; 95819; 93005; 80048; 85025; G0378 ×3; C9113 ×2

== ENCOUNTER 2023-04-22 15:30 | Inpatient (IN) | payer MEDICARE ==
[2023-04-22 15:37] LABS: Glucose,Whole Blood 142 mg/dL (70-110)
[2023-04-22] MEDS ORDERED: SODIUM CHLORIDE 0.9% 500 ML 500 ML IV STA (15:44)
[2023-04-22 16:36] LABS: Basophils % (A) 1 %; Eosinophils # (A) 0.1 k/uL (0-0.7); Eosinophils % (A) 1 %; HCT 43.9 % (39.0-53.0); HGB 14.1 gm/dL (13.0-17.5); Lymphocytes % (A) 19 %; MCH 31.6 pg (25.0-35.0); MCHC 32.2 g/dL (31.0-37.0); MCV 98.2 fL (80.0-100.0); Mean Platelet Volume 7.3; Monocytes # (A) 0.3 k/uL (0-1.0); Monocytes % (A) 5 %; Neutrophils # (A) 3.7 k/uL (1.3-7.7); Neutrophils % (A) 72 %; Platelet Count 138 k/uL (150-450); RBC 4.47 m/uL (4.30-5.90); RDW 13.5 % (11.5-15.5); WBC 5.1 k/uL (3.8-10.6)
--- NOTE | 2023-04-22 16:54 | CT ---
EXAMINATION TYPE: CT brain wo con CT DLP: 1168.4 mGycm, Automated exposure control for dose reduction was used. DATE OF EXAM: 04/22/2023 4:45 PM COMPARISON: 01/28/2023 . CLINICAL INDICATION:Male, 82 years old with history of seizure activity, Seizure activity TECHNIQUE: Brain: Axial CT images of the brain were obtained with coronal and sagittal reformats created and rev iewed. Contrast used: None. Oral contrast used: None. FINDINGS: Brain: Extra-axial spaces: No abnormal extra-axial fluid collections. Ventricular system: Dilatation in proportion to cerebral atrophy. Cerebral parenchyma: Cerebral atrophy. No acute intraparenchymal hemorrhage or mass effect. The fuchs -white junction is well differentiated. Scattered hypoattenuating areas are seen within the white mat ter. Cerebellum: Unremarkable. Mass effect: No evidence of midline shift. Intracranial vasculature: Atherosclerotic calcifications of the intracranial vessels. Soft tissues: Normal. Calvarium/osseous structures: No depressed skull fracture. Paranasal sinuses and mastoid air cells: Mild scattered paranasal sinus disease. Visualized orbits: Orbital contents are intact. IMPRESSION: 1. No acute intracranial process. 2. Nonspecific white matter changes, likely secondary to chronic small vessel ischemic disease.
[2023-04-22 17:18] LABS: ALT 40 U/L (4-49); AST 38 U/L (17-59); African American GFR (CKD) 71 (>60 ml/min/1.73 sqM); Alkaline Phosphatase 70 U/L (38-126); Anion Gap 11 mmol/L; Blood Urea Nitrogen 28 mg/dL (9-20); Calcium 9.2 mg/dL (8.4-10.2); Carbon Dioxide 24 mmol/L (22-30); Chloride 106 mmol/L (98-107); Creatine Kinase 79 U/L (55-170); Glucose 145 mg/dL (74-99); Magnesium 2.1 mg/dL (1.6-2.3); Non-African American GFR(CKD) 61 (>60 ml/min/1.73 sqM); Potassium 4.1 mmol/L (3.5-5.1); Sodium 141 mmol/L (137-145); Total Bilirubin 0.6 mg/dL (0.2-1.3); Total Protein 6.5 g/dL (6.3-8.2)
[2023-04-22] MEDS ORDERED: NALOXONE 0.4 MG/ML 1 ML VIAL IV PRN (18:56)
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
[2023-04-22] MEDS: SODIUM CHLORIDE 0.9% 1,000 ML IV SCH (19:12)
[2023-04-22] MEDS ORDERED: FLUTICASONE 50MCG/SPRAY NASAL 16GM EA NOSTRIL PRN (19:40)
[2023-04-22] MEDS: METOPROLOL TARTRATE 25 MG TAB PO SCH (20:15)
[2023-04-22] MEDS: ATORVASTATIN 40 MG TAB PO SCH (20:15)
[2023-04-22] MEDS: DONEPEZIL 10 MG TAB PO SCH (20:35)
[2023-04-22] MEDS: hydrALAZINE HCL 50 MG TAB PO SCH (20:56)
[2023-04-22] MEDS: LACOSAMIDE 150 MG TABLET PO SCH (21:40)
[2023-04-22] MEDS ORDERED: amLODIPine 5 MG TAB PO STA (23:28)
[2023-04-23] MEDS ORDERED: amLODIPine 5 MG TAB PO STA (02:26)
[2023-04-23] MEDS: LEVOTHYROXINE 50 MCG TAB PO SCH (05:27)
[2023-04-23] MEDS: METOPROLOL TARTRATE 25 MG TAB PO SCH ×2 (05:43→19:53)
[2023-04-23] MEDS: MELOXICAM 7.5 MG TAB PO SCH (07:48)
[2023-04-23] MEDS: ASPIRIN 81 MG PO SCH (07:48)
[2023-04-23] MEDS: LACOSAMIDE 150 MG TABLET PO SCH ×2 (07:49→20:05)
[2023-04-23] MEDS: hydrALAZINE HCL 50 MG TAB PO SCH ×4 (07:49→19:53)
[2023-04-23] MEDS: FORMOTEROL FUMARATE 20 MCG/2 ML NEBU INHALATION SCH ×2 (08:27→20:20)
[2023-04-23] MEDS: IPRATROPIUM 0.5 MG/2.5 ML NEBU INHALATION SCH ×4 (08:27→20:20)
[2023-04-23 08:50] LABS: Blood Urea Nitrogen 17.6 mg/dL (9.0-27.0); Calcium 9.2 mg/dL (8.7-10.3); Carbon Dioxide 25.9 mmol/L (21.6-31.8); Chloride 107 mmol/L (96-109); Glucose 98 mg/dL (70-110); Potassium 3.8 mmol/L (3.5-5.5); Sodium 142 mmol/L (135-145)
[2023-04-23 09:38] LABS: Basophils # (A) 0.04 X 10*3/uL (0.00-0.10); Basophils % (A) 0.6 %; Eosinophils # (A) 0.09 X 10*3/uL (0.04-0.35); Eosinophils % (A) 1.4 %; HCT 44.4 % (39.6-50.0); HGB 14.6 g/dL (13.0-17.0); Lymphocytes # (A) 2.24 X 10*3/uL (0.90-5.00); Lymphocytes % (A) 33.9 %; MCH 31.8 pg (27.0-32.0); MCHC 32.9 g/dL (32.0-37.0); MCV 96.7 FL (80.0-97.0); Mean Platelet Volume 10.1 FL (9.5-12.2); Monocytes # (A) 0.54 X 10*3/uL (0.20-1.00); Monocytes % (A) 8.2 %; NRBC Per 100 WBC 0 X 10*3/uL (0.00-0.01); Neutrophils # (A) 3.66 X 10*3/uL (1.80-7.70); Neutrophils % (A) 55.4 %; Platelet Count 133 X 10*3/uL (140-440); RBC 4.59 X 10*6/uL (4.40-5.60); RDW 13.6 % (11.5-14.5)
[2023-04-23] MEDS: amLODIPine 5 MG TAB PO SCH (13:14)
[2023-04-23 14:29] VITALS: BMI 24.8
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
[2023-04-23] MEDS: SODIUM CHLORIDE 0.9% 1,000 ML IV SCH (18:49)
[2023-04-23] MEDS: DONEPEZIL 10 MG TAB PO SCH (19:53)
[2023-04-23] MEDS: ATORVASTATIN 40 MG TAB PO SCH (19:53)
[2023-04-23] MEDS: lamoTRIgine 25 MG TAB PO SCH (20:05)
[2023-04-24] MEDS: LEVOTHYROXINE 50 MCG TAB PO SCH (05:32)
[2023-04-24] MEDS: IPRATROPIUM 0.5 MG/2.5 ML NEBU INHALATION SCH ×2 (08:05→11:49)
[2023-04-24] MEDS: FORMOTEROL FUMARATE 20 MCG/2 ML NEBU INHALATION SCH (08:05)
[2023-04-24 08:27] VITALS: BP 166/68; PULSE 69; RESP 18; TEMP 98.7
[2023-04-24] MEDS: amLODIPine 5 MG TAB PO SCH (10:30)
[2023-04-24] MEDS: MELOXICAM 7.5 MG TAB PO SCH (10:30)
[2023-04-24] MEDS: METOPROLOL TARTRATE 25 MG TAB PO SCH (10:30)
[2023-04-24] MEDS: ASPIRIN 81 MG PO SCH (10:31)
[2023-04-24] MEDS: lamoTRIgine 25 MG TAB PO SCH (10:32)
[2023-04-24] MEDS: hydrALAZINE HCL 50 MG TAB PO SCH (10:33)
[2023-04-24] MEDS: LACOSAMIDE 150 MG TABLET PO SCH (10:38)
[2023-04-24] MEDS ORDERED: amLODIPine 5 MG TAB PO STA (11:48)
--- NOTE | 2023-04-24 12:39 | CDI ---
Documentation Clarification Form Date: 04/24/2023 12:21:10 PM From: Poonam Doyle RN CCDS Phone: [phone] Admit Date: 04/23/2023 10:44:00 AM Patient Name: William Carrasco Visit Number: [id number] Discharge Date: ATTENTION: The Clinical Documentation Specialists (CDI) and [facility] Coding Staff appreciate your assistance in clarifying documentation. Please respond to the clarification below the line at the bottom and electronically sign. The CDI & [facility] Coding staff will review the response and follow-up if needed. Please note: Queries are made part of the Legal Health Record. If you have any questions, please contact the author of this message via ITS. Dr. Jose Marx Uncontrolled Hypertension, possible hypertensive encephalopathy is documented 04/23, H&P. Additional specificity related to the hypertension diagnosis is requested. History/Risk Factors: 82-year-old male presents to the ED via EMS with recurrent seizures x 3 accompanied by hypertension and without return to baseline. Medical History; ANTONIO nicotine dependence, COPD, Closed head injury, seizure disorder and HTN. 04/23, H&P. Clinical Indicators: BP, 04/22: 185/85 BP, 04/22: 197/79 H&P, 04/23: Denies chest pain, palpitations or shortness of breath.Maintaining O2 sats in the 90s on room air.Hypertensive throughout the night.Patient's anticonvulsant medication Vimpat resumed with nephrology consulted Treatment: 04/22 Norvasc 5mg po x 1 sta; 04/22 04/23 Apresoline 50mg po qid galen;04/23 Norvasc 5mg po x 1 sta; 04/23 Apresoline 75mg po qid galen; 04/24 Norvasc 5mg po x 1 sta Please further clarify hypertension, if known: [ ] Hypertensive Urgency with hypertensive encephalopathy [ ] Other Condition, please specify [ ] Unable to determine Clinical Definitions: Hypertensive Urgency SBP > 180 or DBP > 120 without symptoms or with headache Hypertensive Emergency SBP > 180 or DBP > 120 with chest pain or end organ damage Hypertensive encephalopathy, retinal hemorrhages, papilledema, EVER Hypertensive Crisis SBP > 180 or DBP > 120 Stroke, Heart Attack, Heart Failure, Kidney Failure Documented 04/[address] Marx and Eda Bravo [employer]: Possible hypertensive encephalopathy secondary to hypertenisve urgency (Template Last Revised: August 2020) MTDD
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
== END 2023-04-24 14:09 | disposition home or self-care (01) | DRG 101 ==
LOC: EC 15:30 → 4SSUR 18:56 → OBSVTOIN 04-23 10:44
PROVIDERS: ADMIT Family Medicine; ATTEND Family Medicine
DX: R56.9 Unspecified convulsions (principal); R29.810 Facial weakness; F02.83 Dementia in other diseases classified elsewhere, unspecified severity, with mood disturbance; I67.4 Hypertensive encephalopathy; I10 Essential (primary) hypertension; J44.9 Chronic obstructive pulmonary disease, unspecified; J44.0 Chronic obstructive pulmonary disease with (acute) lower respiratory infection; I16.0 Hypertensive urgency; F32.A Depression, unspecified; I44.0 Atrioventricular block, first degree; G81.91 Hemiplegia, unspecified affecting right dominant side; G47.33 Obstructive sleep apnea (adult) (pediatric); E78.5 Hyperlipidemia, unspecified; E03.9 Hypothyroidism, unspecified; Z79.890 Hormone replacement therapy; Z87.891 Personal history of nicotine dependence; Z88.1 Allergy status to other antibiotic agents; Z88.8 Allergy status to other drugs, medicaments and biological substances; Z87.19 Personal history of other diseases of the digestive system; I45.10 Unspecified right bundle-branch block; X58.XXXA Exposure to other specified factors, initial encounter; Z79.1 Long term (current) use of non-steroidal anti-inflammatories (NSAID); Z79.82 Long term (current) use of aspirin; Z79.899 Other long term (current) drug therapy; Z87.820 Personal history of traumatic brain injury
CPT/HCPCS: 36415; 70450; 80048; 80053; 82550; 83605; 83735; 85025; 93005; 96360; 96361; 99285

== ENCOUNTER 2023-06-26 10:51 | Observation (INO) | payer MEDICARE ==
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
[2023-06-26] MEDS ORDERED: SODIUM CHLORIDE 0.9% 500 ML 500 ML IV STA (11:47)
[2023-06-26 11:55] LABS: Basophils % (A) 0 %; Eosinophils % (A) 1 %; HCT 42.8 % (39.0-53.0); HGB 14.2 gm/dL (13.0-17.5); Lymphocytes % (A) 16 %; MCH 32.3 pg (25.0-35.0); MCHC 33.2 g/dL (31.0-37.0); MCV 97.3 fL (80.0-100.0); Mean Platelet Volume 8.2; Monocytes # (A) 0.3 k/uL (0-1.0); Monocytes % (A) 5 %; Neutrophils # (A) 4.9 k/uL (1.3-7.7); Neutrophils % (A) 78 %; Platelet Count 112 k/uL (150-450); RDW 13.3 % (11.5-15.5); WBC 6.3 k/uL (3.8-10.6)
[2023-06-26 12:03] LABS: Appearance,Urine Clear (Clear); Bilirubin,Urine Negative (Negative); Blood,Urine Negative (Negative); Color,Urine Yellow; Glucose,Urine (UA) Negative (Negative); Ketones,Urine Negative (Negative); Leukocyte Esterase,Urine Negative (Negative); Nitrite,Urine Negative (Negative); PH, Urine 7.5 (5.0-8.0); Protein,Urine Trace (Negative); Specific Gravity,Urine 1.021 (1.001-1.035); Urobilinogen,Urine <2.0 mg/dL (<2.0)
[2023-06-26 12:08] LABS: ALT 33 U/L (4-49); AST 36 U/L (17-59); African American GFR (CKD) 64 (>60 ml/min/1.73 sqM); Albumin 3.8 g/dL (3.5-5.0); Alkaline Phosphatase 94 U/L (38-126); Anion Gap 4 mmol/L; Blood Urea Nitrogen 27 mg/dL (9-20); Calcium 8.9 mg/dL (8.4-10.2); Carbon Dioxide 28 mmol/L (22-30); Chloride 109 mmol/L (98-107); Glucose 99 mg/dL (74-99); Non-African American GFR(CKD) 55 (>60 ml/min/1.73 sqM); Potassium 4.2 mmol/L (3.5-5.1); Sodium 141 mmol/L (137-145); Total Bilirubin 0.9 mg/dL (0.2-1.3); Total Protein 6.3 g/dL (6.3-8.2)
--- NOTE | 2023-06-26 12:21 | CT ---
EXAMINATION TYPE: CT brain cspine wo con CT DLP: 1475.6 mGycm, Automated exposure control for dose reduction was used. DATE OF EXAM: 06/26/2023 12:14 PM COMPARISON: 04/22/2023. CLINICAL INDICATION:Male, 82 years old with history of pain, fall, head injury; Pt fall, weakness, he ad injury TECHNIQUE: Brain: Multiple axial CT images of the brain were obtained without IV contrast. Cspine: Axial CT images from the skull base to the inferior aspect of T2 we obtained without intraven ous contrast. Coronal and sagittal reformatted images were also reviewed. FINDINGS: Brain: Extra-axial spaces: No abnormal extra-axial fluid collections. Ventricular system: Dilatation in proportion to cerebral atrophy. Cerebral parenchyma: Cerebral atrophy. No acute intraparenchymal hemorrhage or mass effect. The fuchs -white junction is well differentiated. Scattered hypoattenuating areas are seen within the white mat ter. Cerebellum: Unremarkable. Mass effect: No evidence of midline shift. Intracranial vasculature: unremarkable Soft tissues: Normal. Calvarium/osseous structures: No depressed skull fracture. Paranasal sinuses and mastoid air cells: Mild scattered mucosal thickening and or secretions. Visualized orbits: Orbital contents are intact. Cervical spine: Fracture: None. Remote injuries to the clavicles bilaterally. Osseous structures: Postsurgical changes to the cervical spine with hardware intact. Multifocal degen eration with osteophyte formation facet joint uncovertebral joint arthropathy. Bifid spinous process of C7. Calcification of the nuchal ligament. Vertebral alignment: Within normal limits. Spinal canal/Neural Foramina: No evidence of significant spinal canal narrowing. No evidence for sign ificant neural foraminal stenosis. Neck soft tissues: Prevertebral soft tissues are within normal limits. Other: The airway is patent. Atherosclerosis of the carotid bifurcations. IMPRESSION: 1. No acute intracranial process. 2. No evidence of cervical spine fracture. 3. Moderate multilevel degenerative disc disease. 4. Post surgical changes the cervical spine with hardware intact. 5. Nonspecific white matter changes likely secondary to chronic small vessel ischemic disease.
--- NOTE | 2023-06-26 12:35 | XR ---
EXAMINATION TYPE: XR femur RT DATE OF EXAM: 06/26/2023 COMPARISON: NONE HISTORY: Pain TECHNIQUE: 4 views submitted FINDINGS: Diffuse osteopenia with mild arthropathy of the hip. Spurring along the greater trochanter can be associated with trochanteric bursitis. There is severe medial compartment and patellofemoral o steoarthritis of the knee. Vascular calcifications noted. IMPRESSION: 1. No acute fracture. 2. A right hip arthropathy correlate for femoral acetabular impingement. 3. Severe osteoarthritis of the knee.
--- NOTE | 2023-06-26 12:37 | XR ---
EXAMINATION TYPE: XR Hip Complete RT DATE OF EXAM: 06/26/2023 COMPARISON: 02/08/2020 HISTORY: Pain TECHNIQUE: 2 views submitted FINDINGS: There is no evidence of erosive change or acute fracture. Diffuse osteopenia with mild to moderate hi p arthropathy. Spurring of the greater trochanter could be associated trochanteric bursitis. Vascular calcifications. Hypertrophic changes along the lateral margin of the acetabulum can be associated wi th femoral acetabular impingement. Mild SI joint arthropathy. IMPRESSION: 1. Hip arthropathy correlate for femoral acetabular impingement.
--- NOTE | 2023-06-26 12:39 | XR ---
EXAMINATION TYPE: XR knee complete RT DATE OF EXAM: 06/26/2023 COMPARISON: NONE HISTORY: Pain TECHNIQUE: Three views are submitted. FINDINGS: Severe arthropathy of the medial compartment and patellofemoral compartment of the knee joint. Diffus e osteopenia. Marginal spurring. Vascular calcifications. No acute fracture or dislocation. IMPRESSION: 1. No acute fracture or dislocation. 2. Severe osteoarthritis.
--- NOTE | 2023-06-26 12:46 | XR ---
EXAM TYPE: LUMBAR SPINE X RAY SERIES COMPARISON: 06/23/2022 HISTORY: Pain TECHNIQUE: 3 views are submitted. FINDINGS: There is postsurgical changes involving the thoracolumbar junction with stabilization rods and verteb ral plasty. IVC filter seen and there is vascular calcifications. Calcification upper quadrant could be related to hepatic granuloma or gallstone. Mild SI joint arthropathy. There is a grade 1 anterolisthesis L4-5 and L5-S1 with multilevel facet arthropathy most marked at le vels L4-5 and L5-S1. A mild multiple wedge deformities involving the lower thoracic spine and upper l umbar spine stable. IMPRESSION: 1. Postoperative change with multiple stable appearing compression deformities. 2. Multilevel anterolisthesis with facet arthropathy and suspected foraminal encroachment recommend f ollow-up MRI.
--- NOTE | 2023-06-26 12:48 | XR ---
EXAMINATION TYPE: XR thoracic spine 2V DATE OF EXAM: 06/26/2023 COMPARISON: 09/24/2022 HISTORY: Pain TECHNIQUE: 3 views submitted FINDINGS: There is postsurgical changes involving the thoracolumbar junction with stabilization rods and verteb ral plasty. IVC filter seen and there is vascular calcifications. Calcification upper quadrant could be related to hepatic granuloma or gallstone. Diffuse osteopenia. There is multilevel mild degenerative disc disease. Postsurgical changes involvin g the cervical spine. The heart is enlarged and there is atherosclerotic change aorta. Chronic left clavicular deformity. IMPRESSION: 1. Extensive postsurgical change involving the lower thoracic spine similar appearance to prior exam. 2. Multilevel degenerative disc disease with diffuse osteopenia.
[2023-06-26] MEDS ORDERED: ONDANSETRON 4 MG/2 ML VIAL IVP STA (13:27)
[2023-06-26] MEDS ORDERED: MORPHINE SULFATE 4 MG/ML SYRINGE IVP STA (13:27)
[2023-06-26] MEDS ORDERED: ONDANSETRON 4 MG/2 ML VIAL IVP PRN (13:48)
[2023-06-26] MEDS ORDERED: NALOXONE 0.4 MG/ML 1 ML VIAL IV PRN (13:48)
[2023-06-26] MEDS ORDERED: hydrALAZINE HCL 20 MG/ML 1 ML VIAL IVP STA (13:48)
[2023-06-26] MEDS: SODIUM CHLORIDE 0.9% 1,000 ML IV SCH ×2 (14:21→21:40)
[2023-06-27] MEDS: MORPHINE SULFATE 4 MG/ML SYRINGE IV PRN ×3 (00:30→20:39)
[2023-06-27] MEDS: SODIUM CHLORIDE 0.9% 1,000 ML IV SCH ×2 (08:00→20:16)
[2023-06-27] MEDS ORDERED: IPRATROPIUM-ALBUTEROL 3 ML NEB INHALATION PRN (08:39)
--- NOTE | 2023-06-27 09:53 | XR ---
EXAMINATION TYPE: XR chest 1V portable DATE OF EXAM: 06/27/2023 COMPARISON: 06/21/2022 HISTORY: Hypoxia TECHNIQUE: Single frontal view of the chest is obtained. FINDINGS: There is left basilar atelectasis or infiltrate but no pleural effusion, or pneumothorax s een. The cardiac silhouette size is within normal limits. The osseous structures are intact. Posts urgical changes involving the vertebral column. Chronic deformity left clavicle with bilateral arthro sydni. Heart is enlarged. Atherosclerotic change aorta. IMPRESSION: 1. Cardiomegaly with left basilar atelectasis or infiltrate. 2. Prominent upper mediastinum stable.
[2023-06-27] MEDS: METOPROLOL TARTRATE 25 MG TAB PO SCH ×2 (10:04→20:18)
[2023-06-27] MEDS: PANTOPRAZOLE 40 MG/10 ML VIAL IVP SCH (10:04)
[2023-06-27] MEDS: lamoTRIgine 100 MG TAB PO SCH ×2 (10:04→20:18)
[2023-06-27] MEDS: hydrALAZINE HCL 50 MG TAB PO SCH ×3 (10:04→21:41)
[2023-06-27] MEDS: LEVOTHYROXINE 50 MCG TAB PO SCH (10:04)
[2023-06-27] MEDS: LACOSAMIDE 150 MG TABLET PO SCH ×2 (10:46→21:41)
[2023-06-27 11:20] LABS: Basophils # (A) 0.04 X 10*3/uL (0.00-0.10); Basophils % (A) 0.7 %; Eosinophils # (A) 0.08 X 10*3/uL (0.04-0.35); Eosinophils % (A) 1.5 %; HCT 42.3 % (39.6-50.0); HGB 13.4 g/dL (13.0-17.0); Lymphocytes # (A) 1.71 X 10*3/uL (0.90-5.00); MCH 31.5 pg (27.0-32.0); MCHC 31.7 g/dL (32.0-37.0); MCV 99.3 FL (80.0-97.0); Mean Platelet Volume 9.8 FL (9.5-12.2); Monocytes # (A) 0.38 X 10*3/uL (0.20-1.00); Monocytes % (A) 6.9 %; NRBC Per 100 WBC 0 X 10*3/uL (0.00-0.01); Neutrophils # (A) 3.27 X 10*3/uL (1.80-7.70); Neutrophils % (A) 59.4 %; Platelet Count 113 X 10*3/uL (140-440); RBC 4.26 X 10*6/uL (4.40-5.60); RDW 13.4 % (11.5-14.5); WBC 5.51 X 10*3/uL (4.50-10.00)
[2023-06-27 11:33] LABS: BUN/Creat Ratio 18.91 Ratio (12.00-20.00); Blood Urea Nitrogen 20.8 mg/dL (9.0-27.0); Calcium 8.7 mg/dL (8.7-10.3); Carbon Dioxide 25.7 mmol/L (21.6-31.8); Chloride 108 mmol/L (96-109); Glucose 89 mg/dL (70-110); Potassium 4.5 mmol/L (3.5-5.5); Sodium 144 mmol/L (135-145)
[2023-06-27] MEDS: FORMOTEROL FUMARATE 20 MCG/2 ML NEBU INHALATION SCH ×2 (12:32→19:33)
[2023-06-27] MEDS: IPRATROPIUM-ALBUTEROL 3 ML NEB INHALATION SCH ×3 (13:00→19:33)
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
[2023-06-27] MEDS: HYDROcodone/APAP 7.5-325MG 1 EACH TAB PO PRN (14:46)
[2023-06-27] MEDS: DONEPEZIL 10 MG TAB PO SCH (20:16)
[2023-06-28] MEDS: LEVOTHYROXINE 50 MCG TAB PO SCH (06:48)
[2023-06-28] MEDS ORDERED: NON FORMULARY DRUG (Umeclidinium Brm/Vilanterol Tr [Anoro Ellipta 62.5-25 Mcg Inh] 1 EACH INHALATION SCH (08:00)
[2023-06-28] MEDS: IPRATROPIUM-ALBUTEROL 3 ML NEB INHALATION SCH ×4 (09:00→20:58)
[2023-06-28] MEDS: FORMOTEROL FUMARATE 20 MCG/2 ML NEBU INHALATION SCH ×2 (09:00→20:58)
[2023-06-28] MEDS: METOPROLOL TARTRATE 25 MG TAB PO SCH ×2 (09:58→22:16)
[2023-06-28] MEDS: lamoTRIgine 100 MG TAB PO SCH ×2 (09:58→22:16)
[2023-06-28] MEDS: HYDROcodone/APAP 7.5-325MG 1 EACH TAB PO PRN (09:58)
[2023-06-28] MEDS: hydrALAZINE HCL 50 MG TAB PO SCH ×4 (09:58→22:15)
[2023-06-28] MEDS: LACOSAMIDE 150 MG TABLET PO SCH ×2 (09:58→22:16)
[2023-06-28] MEDS: PANTOPRAZOLE 40 MG/10 ML VIAL IVP SCH (09:59)
--- NOTE | 2023-06-28 11:06 | CT ---
EXAMINATION TYPE: CT thor lumbar spine wo/w con DATE OF EXAM: 06/28/2023 COMPARISON: CT thoracolumbar spine June 21, 2022 HISTORY: pain CT DLP: 3163.6 mGycm Automated exposure control for dose reduction was used. CONTRAST: Performed without and with IV Contrast, patient injected with 100 ml mL of Isovue 300. FINDINGS: There is interval vertebroplasty at T10-T12 levels. Posterior interpedicular rods and screws transfix T10-T12 levels bilaterally. [id number] height loss in these vertebra is seen. There is mild an terior wedging with height loss superior endplate also at L1 level redemonstrated. Alignment is stabl e and satisfactory. Spinal canal is grossly preserved. No suspicious enhancement is seen. No acute fr acture or dislocation. Calcification at level of the mitral valve is redemonstrated. Persistent infrarenal IVC filter. There is significant stenosis in the proximal left common iliac artery axial image 144 noted. Correlate li geovanna with left lower extremity vascular hypoperfusion symptoms. IMPRESSION: Interval multilevel vertebroplasty lower thoracic spine. Alignment stable and satisfactor y. No acute fracture or dislocation.
--- NOTE | 2023-06-28 11:25 | P.PN ---
Subjective Progress Note Date: 06/28/23 Principal diagnosis: 1. Low back pain; lumbar spondylosis; lumbar spondylolisthesis patient was seen at bedside this morning lying supine in bed. Patient says he is still having low back pain and nothing is changed since yesterday. Patient says he is looking forward to getting computed tomography scan of spine today. Patient denies saddle anesthesia. Patient denies loss of bowel/bladder control. Patient denies lumbar radiculopathy. He denies chest pain, fever, shortness breath, nausea, vomiting, change in vision. Objective - Vital Signs Vital signs: Vital Signs Temp 98.0 F 06/28/23 07:44 Pulse 84 06/28/23 09:19 Resp 18 06/28/23 07:44 BP 164/76 06/28/23 07:44 Pulse Ox 100 06/28/23 07:44 FiO2 Intake & Output 06/27/23 06/28/23 06/28/23 18:59 06:59 18:59 Output Total 750 800 500 Balance -750 -800 -500 Weight 79.379 kg Output: Urine 750 800 500 - Exam Inspection: Negative for any significant open fracture, erythema, open wounds. Some ecchymosis present throughout the bilateral lower extremities.' Sensation: Equal, symmetric, bilaterally intact throughout the upper and lower extremities. Palpation: significant TTP diffusely throughout the lumbar spine midline and in the paravertebral region. There is some moderate TTP in lower thoracic spine midline. NTTP throughout rest of exam Range of motion: Full range of motion throughout bilateral upper extremities on exam. There is some limited range of motion in bilateral lower extremities on hip flexion extension secondary to referred pain in the low back. Patient does have range of motion throughout bilateral ankles in dorsi/plantar flexion and and knees in flexion/extension. Motor: 4/5 in all major motor strength in bilateral lower extremities. 4+/5 in all major motor groups in bilateral upper extremities Neurovascular status: Radial pulse intact, 2+. Cap refill under 3 seconds in digits of upper extremities. Special tests: Negative Homans bilaterally. Negative clonus bilaterally. Negative Elvia bilaterally. - Labs CBC & Chem 7: 06/27/23 07:15 06/27/23 07:15 Labs: Abnormal Lab Results - Last 24 Hours (Table) 06/27/23 Range/Units 07:15 RBC 4.26 L (4.40-5.60) X 10*6/uL MCV 99.3 H (80.0-97.0) FL MCHC 31.7 L (32.0-37.0) g/dL Plt Count 113 L (140-440) X 10*3/uL Assessment and Plan Assessment: 1. Low back pain; lumbar spondylosis; lumbar spondylolisthesis 2. History of T10-T12 stabilization with T11 kyphoplasty Plan: 1. Low back pain; lumbar spondylosis; lumbar spondylolisthesis; History of T10- T12 stabilization with T11 kyphoplasty - computed tomography scan of the thoracic and lumbar spine does reveal hardware intact from T10 to T12. Screws a ppear to be well aligned. compression deformity at L1. Negative for any other fractures, dislocations on computed tomography scan. At this time we're not recommending any emergent/urgent orthopedic surgical intervention. At this time we are recommending conservative measures with pain medication. Patient may benefit from IV steroids. Pain medication as needed. orthopedics will be available as needed see patient during stay in hospital. 2. Appreciate medical management 3. Pain management - morphine; norco 4. DVT prophylaxis - mechanical 5. GI prophylaxis - protonix 6. PT/OT - weightbearing as tolerated with walker and assistance as necessary 7. Encourage incentive spirometer use Time with Patient: Less than 30
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
[2023-06-28] MEDS: MORPHINE SULFATE 4 MG/ML SYRINGE IV PRN ×2 (17:30→22:30)
[2023-06-28] MEDS: SODIUM CHLORIDE 0.9% 1,000 ML IV SCH (20:01)
[2023-06-28] MEDS: DONEPEZIL 10 MG TAB PO SCH (22:16)
[2023-06-29] MEDS: MORPHINE SULFATE 4 MG/ML SYRINGE IV PRN (03:08)
[2023-06-29] MEDS: SODIUM CHLORIDE 0.9% 1,000 ML IV SCH (03:50)
[2023-06-29] MEDS: HYDROcodone/APAP 7.5-325MG 1 EACH TAB PO PRN (07:05)
[2023-06-29] MEDS: LEVOTHYROXINE 50 MCG TAB PO SCH (07:05)
[2023-06-29] MEDS: hydrALAZINE HCL 50 MG TAB PO SCH ×2 (08:04→11:34)
[2023-06-29] MEDS: lamoTRIgine 100 MG TAB PO SCH (08:04)
[2023-06-29] MEDS: PANTOPRAZOLE 40 MG/10 ML VIAL IVP SCH (08:05)
[2023-06-29] MEDS: METOPROLOL TARTRATE 25 MG TAB PO SCH (08:05)
[2023-06-29] MEDS: LACOSAMIDE 150 MG TABLET PO SCH (08:05)
[2023-06-29 08:22] VITALS: BP 178/70; RESP 18; TEMP 97.7
[2023-06-29] MEDS: IPRATROPIUM-ALBUTEROL 3 ML NEB INHALATION SCH ×2 (08:35→12:04)
[2023-06-29] MEDS: FORMOTEROL FUMARATE 20 MCG/2 ML NEBU INHALATION SCH (08:35)
--- NOTE | 2023-06-29 09:38 | P.PN ---
Subjective Progress Note Date: 06/29/23 Principal diagnosis: 1. Low back pain; lumbar spondylosis; lumbar spondylolisthesis patient was seen at bedside this morning lying supine in bed. Patient says he is still having low back pain and nothing is changed since yesterday. Patient denies saddle anesthesia. Patient denies loss of bowel/bladder control. Patient denies lumbar radiculopathy. He denies chest pain, fever, shortness breath, nausea, vomiting, change in vision. Objective - Vital Signs Vital signs: Vital Signs Temp 97.7 F 06/29/23 08:00 Pulse 70 06/29/23 08:00 Resp 18 06/29/23 08:00 BP 178/70 06/29/23 08:00 Pulse Ox 91 L 06/29/23 08:00 FiO2 Intake & Output 06/28/23 06/29/23 06/29/23 18:59 06:59 18:59 Intake Total 600 Output Total 500 650 Balance 100 -650 Intake: Oral 600 Output: Urine 500 650 - Exam Inspection: Negative for any significant open fracture, erythema, open wounds. Some ecchymosis present throughout the bilateral lower extremities.' Sensation: Equal, symmetric, bilaterally intact throughout the upper and lower extremities. Palpation: significant TTP diffusely throughout the lumbar spine midline and in the paravertebral region. There is some moderate TTP in lower thoracic spine midline. NTTP throughout rest of exam Range of motion: Full range of motion throughout bilateral upper extremities on exam. There is some limited range of motion in bilateral lower extremities on hip flexion extension secondary to referred pain in the low back. Patient does have range of motion throughout bilateral ankles in dorsi/plantar flexion and and knees in flexion/extension. Motor: 4/5 in all major motor strength in bilateral lower extremities. 4+/5 in all major motor groups in bilateral upper extremities Neurovascular status: Radial pulse intact, 2+. Cap refill under 3 seconds in digits of upper extremities. Special tests: Negative Homans bilaterally. Negative clonus bilaterally. Negative Elvia bilaterally. - Labs CBC & Chem 7: 06/27/23 07:15 06/27/23 07:15 Assessment and Plan Assessment: 1. Low back pain; lumbar spondylosis; lumbar spondylolisthesis 2. History of T10-T12 stabilization with T11 kyphoplasty Plan: 1. Low back pain; lumbar spondylosis; lumbar spondylolisthesis; History of T10- T12 stabilization with T11 kyphoplasty - computed tomography scan of the thoracic and lumbar spine does reveal hardware intact from T10 to T12. Screws appear to be well aligned. compression deformity at L1. Negative for any other fractures, dislocations on computed tomography scan. At this time we're not recommending any emergent/urgent orthopedic surgical intervention. At this time we are recommending conservative measures with pain medication. Patient may benefit from IV steroids. Pain medication as needed. Patient is stable for orthopedic standpoint for discharge. Orthopedics is signing off at this time. Please do not hesitate to contact us for any further questions. We do recommend patient to follow-up in the outpatient setting with Dr. Durand for continued evaluation. 2. Appreciate medical management 3. Pain management - morphine; norco 4. DVT prophylaxis - mechanical 5. GI prophylaxis - protonix 6. PT/OT - weightbearing as tolerated with walker and assistance as necessary 7. Encourage incentive spirometer use Time with Patient: Less than 30
[2023-06-29] MEDS ORDERED: TAMSULOSIN 0.4 MG CAP.ER.24H PO SCH (10:00)
[2023-06-29 12:27] VITALS: PULSE 92
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
== END 2023-06-29 12:49 ==
LOC: EC 10:51 → 4SSUR 18:03 → INTOOBSV 18:03 → 4SSUR 22:48
PROVIDERS: ADMIT Family Medicine; ATTEND Family Medicine
DX: M47.816 Spondylosis without myelopathy or radiculopathy, lumbar region (principal); M43.16 Spondylolisthesis, lumbar region; R29.6 Repeated falls; N17.9 Acute kidney failure, unspecified; J96.01 Acute respiratory failure with hypoxia; F02.80 Dementia in other diseases classified elsewhere, unspecified severity, without behavioral disturbance, psychotic disturbance, mood disturbance, and anxiety; I10 Essential (primary) hypertension; R33.9 Retention of urine, unspecified; E78.5 Hyperlipidemia, unspecified; J44.9 Chronic obstructive pulmonary disease, unspecified; E03.9 Hypothyroidism, unspecified; G47.33 Obstructive sleep apnea (adult) (pediatric); F32.A Depression, unspecified; Z20.822 Contact with and (suspected) exposure to COVID-19; Z87.820 Personal history of traumatic brain injury; Z87.891 Personal history of nicotine dependence; Z79.1 Long term (current) use of non-steroidal anti-inflammatories (NSAID); Z79.82 Long term (current) use of aspirin; Z79.890 Hormone replacement therapy; Z79.899 Other long term (current) drug therapy; Z88.0 Allergy status to penicillin
CPT/HCPCS: 96376 ×3; 96361 ×2; 96375 ×2; 96374; 99285; 36415; 94640 ×5; 93005; 97162; 97166; 80053; 80048; 84484; 85025 ×2; 81003; 87636; 72070; 72100; 73502; 73552; 73562; 71045; 72130; 72125; 72133; 70450; G0378 ×5; J2270 ×4; J0360; J2405; C9113 ×3; Q9967

== ENCOUNTER 2023-07-25 05:38 | Day surgery (SDC) | payer MEDICARE ==
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
[~2023-07-25 05:38] MED LIST changes: -HYDROmorphone 0.5 MG/0.5 ML SYRINGE IVP PRN; -MELOXICAM 7.5 MG TAB PO PRN; -ONDANSETRON 4 MG/2 ML VIAL IVP ONE; +ONDANSETRON 4 MG/2 ML VIAL IVP PRN; -ROPIVACAINE/EPI/CLONIDINE/KET 50 ML SYRINGE MISCELLANE PRN; +TRANEXAMIC 1,000 MG/100ML-NACL 1,000 MG in SALINE 1 100ML.BAG IVPB PRN; -TRANEXAMIC ACID 1,000 MG in SODIUM CHLORIDE 0.9% 100 ML IVPB PRN
[2023-07-25] MEDS ORDERED: LIDOCAINE 1% (10MG/ML) FOR IV START INTRADERMA PRN (06:23)
[2023-07-25] MEDS: LACTATED RINGERS 1,000 ML IV SCH (06:58)
[2023-07-25] MEDS: fentaNYL (PF) 50 MCG/ML 2 ML AMP IVP ONE (07:12)
[2023-07-25] MEDS: GABAPENTIN 300 MG CAP PO PRN (07:12)
[2023-07-25] MEDS: ONDANSETRON 4 MG/2 ML VIAL IVP ONE (07:27)
[2023-07-25 07:31] LABS: Prothrombin Time 11.3 sec (10.0-12.5)
[2023-07-25] MEDS ORDERED: PROPOFOL 10 MG/ML 20 ML VIAL IV ONE (07:33)
[2023-07-25] MEDS ORDERED: SUCCINYLCHOLINE CHLORIDE 200 MG/10 ML VIAL IV ONE (07:33)
[2023-07-25] MEDS ORDERED: LIDOCAINE 1% INJ 10MG/ML (20 ML MDV) ONE (07:33)
[2023-07-25] MEDS ORDERED: fentaNYL (PF) 50 MCG/ML 2 ML AMP ONE (07:33)
[2023-07-25] MEDS ORDERED: PHENYLEPHRINE-0.9% NACL SYG 1,000 MCG/10 ML SYRINGE ONE (07:33)
[2023-07-25] MEDS: LACTATED RINGERS 1,000 ML IV ONE (07:59)
[2023-07-25] MEDS: IOPAMIDOL M200 10 ML VIAL MISCELLANE ONE (08:04)
[2023-07-25] MEDS: BUPIVACAINE (PF) 0.5% 30 ML VIAL SQ ONE ×2 (08:04)
[2023-07-25] MEDS: LIDOCAINE 1%-EPI 1:100,000 50 ML VIAL SQ ONE ×2 (08:04)
[2023-07-25 08:51] VITALS: TEMP 97.1
[2023-07-25] MEDS: hydrALAZINE HCL 20 MG/ML 1 ML VIAL IV ONE (09:05)
--- NOTE | 2023-07-25 09:07 | FL ---
EXAMINATION TYPE: FL guidance operating room, XR lumbar spine 2 or 3V Intraoperative/procedural fluor oscopic services were provided. Total fluoroscopy time is 1 minute 7 seconds with a total of 5 submit lisa images to PACS. Please see the operative/procedural note for further details. DAP: 13.114 Gycm2
--- NOTE | 2023-07-25 09:08 | P.OP ---
Date of Procedure: 07/25/23 Preoperative Diagnosis: 1. L1 COMPRESSION FRACTURE WEDGE 35% 2. LOW BACK PAIN Postoperative Diagnosis: 1. L1 COMPRESSION FRACTURE WEDGE 35% 2. LOW BACK PAIN Procedure(s) Performed: 1. L1 KYPHOPLASTY WITH BIOPSY Implants: NILAY CEMENT Anesthesia: CRAIGA Surgeon: Kaden Durand Tank Cleaner #1: Doe Christina (WAS PRESENT AND ASSISTED WITH ALL ASPECTS OF THE CASE FROM POSITION TO CLOSURE) Estimated Blood Loss (ml): 2 IV fluids (ml): 200 Urine output (ml): 0 Pathology: other (L1 VERTEBRAL BODY) Condition: stable Disposition: PACU Indications for Procedure: Mr. Carrasco is presenting for evaluation of low back pain. It was my pleasure to have seen and examined Mr. Carrasco. In our visit today we have had a chance to go over subjective complaints, physical examination findings and treatments including the natural course history without intervention and various interventional options. The patients imaging demonstrates: Post operative images taken today in office are reviewed with pt.AP and Lateral of the Lumbar Spine and AP Pelvis demonstrate: Post op hardware in place without migration or complication noted. New L1 VCF noted with 30-40% compressive, anteiror wedge deformity with local kyphosis. No fracture extension or retropulsion. No other fractures noted at this time. No lesions. XRay Thoracic AP/lateral 2 views and Lumbar Multiview (AP, Lateral, Flexion, Extension) with AP pelvis; 5 views taken at [facility] on 11/21/22 of Lumbar, Thoracic Spine: - Images re-reviewed today with the patient today. s/p T10-12 stabilization with T11 kyphoplasty. Hardware in position. Alignment maintained. No evidence of migration, fracture or failure. No other osseous abnormalities seen at this time. Stable findings and appropriate post op. On physical exam, Mr. Carrasco demonstrates: A sharp, stabbing pain throughout the low back. The patient denies experiencing any radiating pain down into the bilateral lower extremities. He denies experiencing any numbness or tingling. The patient states his current symptoms are exacerbated by prolonged walking or standing, or when lying flat on his back. The patient reports experiencing severe sleep disturbances related to his ongoing pain and associated symptoms. I have explained to the patient that as their condition progresses it will cause further neurological deficits and eventual paralysis. Based on the patients imaging, physical exam, and the rapid progression and disabling nature of their symptoms, at this time I recommend surgery in the form of a: L1 kyphoplasty I discussed the risk and benefits of this procedure at length with Mr. Carrasco. The patient agreed to considered pursuing the procedure above mentoned. Prior to surgery, she should follow up with her PCP (Cardio, ID, IM etc) for clearance. Questions were invited and answered, and the patient wishes to proceed as outlined below. Currently, I am recommendin.L1 kyphoplasty Description of Procedure: Lumbar (1) Kyphoplasty The patient was seen and examined in the preoperative area. All preoperative protocols were followed. Informed consent was obtained, risks and benefits of the procedure were discussed at length. Risks including bleeding infection damage to the surrounding tissue and risk of reoperation were discussed with the patient. Risk of anesthesia up to and including was discussed with the patient. These are outlined in the risk review. They were willing to accept these risks and all the risks of surgery. The patient was given a weight-based dose of antibiotics in the form of 2 g Ancef. The patient was seen and evaluated by the anesthesia team who deemed them fit for surgery. The site was marked, the patient was willing to proceed with the procedure. The patient was transferred to the operative suite by the Department of anesthesia. They were then drifted off to sleep by the department anesthesia and GETA was performed. The patient tolerated this well. Once confirmation of lines and ventilation the patient was transferred to a prone Franko table very carefully. All bony prominences including wrists, elbows, axilla, chest, hips, and thighs, and feet were padded very well. Special attention was paid to the genitalia, and these were padded accordingly. SCDs were placed on bilateral lower extremities and were connected. Arms were well padded and placed on arm boards up and out in the 90/90 position. Once in position, again we confirmed good ventilation capabilities and that lines were running appropriately. The patients Lumbar spine was then exposed. 1010s were placed outlining the incision site. Standard alcohol was used to clean the incision site and allowed to dry. C-arm was used to needle localize the pedicles at L1 and bio-tarsha the patient and confirm level for incision which was marked with a skin marker. Operative briefing was performed with all teams and everyone in agreement to proceed. The patient was then prepped and draped in a normal sterile fashion. Timeout was then performed, and all parties agreed with the procedure to be performed. Skin fili was made. Jamshitdi was passed into the L1 vertebral body via the pedicle. This was done with biplane fluoroscopy. Once in good position in the body the trochar is removed. Biopsy needle was passed into the body and a biopsy was taken. Drill was then passed and biopsy material taken from drill as well. Curette then used to reduce endplate and create more space. Balloon was then passed an inflated which showed good reduction of endplate on AP and Lateral and confirmed central placement. The cement was then placed and pt remained stable. Good fill of cement was seen without extravasation. Once good fill, the Jamshedi was removed and the wound irrigated. The skin was closed with a simple stitch and dressed with a bandaid. The patient was then transferred off the table back to their hospital bed a- traumatically. They were extubated by the department of anesthesia. They were then transferred to PACU in stable condition having tolerated the procedure with no complications.
[2023-07-25] MEDS: HYDROmorphone 0.5 MG/0.5 ML SYRINGE IVP PRN (09:10)
[2023-07-25 10:53] VITALS: RESP 16
[2023-07-25 11:23] VITALS: BP 156/67; PULSE 73
== END 2023-07-25 12:15 ==
LOC: OR 05:38
PROVIDERS: ATTEND Orthopaedic Surgery
DX: S32.010A Wedge compression fracture of first lumbar vertebra, initial encounter for closed fracture (principal); J44.9 Chronic obstructive pulmonary disease, unspecified; E78.5 Hyperlipidemia, unspecified; I10 Essential (primary) hypertension; F03.90 Unspecified dementia, unspecified severity, without behavioral disturbance, psychotic disturbance, mood disturbance, and anxiety; G40.909 Epilepsy, unspecified, not intractable, without status epilepticus; M19.90 Unspecified osteoarthritis, unspecified site; G47.33 Obstructive sleep apnea (adult) (pediatric); E03.9 Hypothyroidism, unspecified; F32.A Depression, unspecified; Z98.890 Other specified postprocedural states; Z87.891 Personal history of nicotine dependence; Z79.890 Hormone replacement therapy; Z79.82 Long term (current) use of aspirin; Z79.51 Long term (current) use of inhaled steroids; Z79.899 Other long term (current) drug therapy; Z79.1 Long term (current) use of non-steroidal anti-inflammatories (NSAID); Z88.1 Allergy status to other antibiotic agents; Z88.0 Allergy status to penicillin; W19.XXXA Unspecified fall, initial encounter
CPT/HCPCS: 22514; 20220; 86900; 86901; 85610; 86850; 88307; 72100; J0330; J0360; J0690; J2405; J2001; J3010; J2704; J1170; Q9966; J2371; J0665

== ENCOUNTER → 2023-10-01 | Outpatient (CLI) | payer MEDICARE ==
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
== END | disposition home or self-care (01) ==
LOC: RADFLMAIN 11:27
PROVIDERS: ATTEND Otolaryngology
DX: R13.10 Dysphagia, unspecified (principal)
CPT/HCPCS: 74230

== ENCOUNTER → 2023-10-22 | Outpatient (CLI) | payer MEDICARE ==
[2023-10-22 14:50] LABS: African American GFR (CKD) 69 (>60 ml/min/1.73 sqM); Blood Urea Nitrogen 24 mg/dL (9-20); Non-African American GFR(CKD) 60 (>60 ml/min/1.73 sqM)
--- NOTE | 2023-10-28 18:58 | CT ---
EXAMINATION TYPE: CT angio neck DATE OF EXAM: 10/22/2023 COMPARISON: 05/27/2022 HISTORY: 82-year-old male I65.29 OCCLUSION AND STENOSIS OF UNSPECIFIED CAROT, Patient states that he 's has felt unbalanced and has had increased weakness TECHNIQUE: Contiguous axial scanning of the neck performed without and with IV Contrast, patient inje cted with 80cc mL of Isovue 370. Coronal and sagittal reconstructions performed. 3-D reconstructions generated on a dedicated independent workstation. CT DLP: 586.9 mGycm Automated exposure control for dose reduction was used. FINDINGS: Moderate atherosclerotic calcifications within the aortic arch with bovine configuration. Mild atherosclerotic narrowing at the proximal left subclavian artery. The bilateral vertebral arteries are codominant and patent throughout their course. The right common carotid artery is patent. Severe, greater than 80% stenosis at the origin of the right ICA, axial image 69 and coronal image 54 , sagittal image 82. The remainder of the cervical right ICA is patent. The left common carotid artery is patent. Prominent atherosclerotic plaque and some calcification at the left carotid bifurcation results in mild, just under 50% proximal left ICA stenosis. The remainder of the cervical left ICA is patent. NASCET criteria is utilized. Atherosclerotic calcifications within the bilateral carotid siphons. This contributes to moderate kenia noses in the cavernous segment bilateral ICAs. Rightward nasal septal deviation. Moderate emphysematous changes in the visualized upper lungs. A couple pulmonary nodules in the left upper lobe measuring up to 5 mm. The lateral apical nodule on axial image 26 appears to have been pre sent previously. The other nodules may be minimally smaller 4 mm previously. Consider a one-year [facility] follow-up. IMPRESSION: 1. PROMINENT ATHEROSCLEROTIC CHANGES AT THE BILATERAL CAROTID BIFURCATIONS. 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 2. MILD, JUST UNDER 50% PROXIMAL LEFT ICA STENOSIS. 3. SEGMENTAL MODERATE STENOSES WITHIN THE CAVERNOUS SEGMENTS OF THE BILATERAL ICAs. 4. TWELVE-MONTH SURVEILLANCE FOLLOW-UP CT CHEST TO REASSESS THE LEFT UPPER LOBE NODULES.
== END | disposition home or self-care (01) ==
LOC: RADCTMAIN 14:13
PROVIDERS: ATTEND Internal Medicine Interventional Cardiology
DX: I65.23 Occlusion and stenosis of bilateral carotid arteries (principal)
CPT/HCPCS: 82565; 84520; 70498; 36415; Q9967

== ENCOUNTER 2024-01-20 13:51 | Emergency (ER) | payer MEDICARE ==
[2024-01-20] MEDS ORDERED: lamoTRIgine 100 MG TAB ONE (19:35)
[2024-01-20] MEDS ORDERED: LACOSAMIDE 50 MG TABLET ONE (19:43)
[2024-01-20] MEDS ORDERED: MORPHINE SULFATE 2 MG/ML SYRINGE ONE (20:52)
[2024-01-20] MEDS ORDERED: traMADol 50 MG STARTER PACK 3 TAB BTL ONE (20:52)
--- NOTE | 2024-02-20 18:15 | CT ---
[id number] TYLER TAYLOR : 1940 EXAM: CT of the abdomen and pelvis with IV contrast. DATE: 01/20/2024 16:28 INDICATION: RIGHT FLANK PAIN, HEMATURIA COMPARISON: None, please note PACS downtime occurred during the radiologist interpretation of these i mages with limited priors/reports.. TECHNIQUE: XR Shoulder Complete Right, XR Humerus Right, with axial imaging and sagittal and coronal reformats f ollowing the administration of 80 cc of Isovue 300 IV contrast material.. One or more CT dose reducti on strategies were utilized during this examination. Total DLP administered was 1415 mGycm. FINDINGS: LOWER CHEST: The heart is mildly enlarged for size. ABDOMEN LIVER: Unremarkable GALLBLADDER AND BILE DUCTS: Unremarkable. PANCREAS: Unremarkable. SPLEEN: Unremarkable. ADRENAL GLANDS: Unremarkable. KIDNEYS AND URETERS: No evidence of hydronephrosis or renal calculus. The ureters are unremarkable. The inferior pole renal cyst. PELVIS BLADDER: Bladder wall thickening possibly due to underdistention. REPRODUCTIVE: Prostate is enlarged in size measuring 6.3 cm in transverse dimension. ABDOMEN & PELVIS STOMACH AND BOWEL: The appendix is visualized and normal. Scattered colonic diverticula Stomach and d uodenum are unremarkable. No evidence of bowel obstruction. PERITONEUM: No evidence of pneumoperitoneum or free fluid. VASCULATURE: No evidence of aortic aneurysm. IVC filter in place. Atherosclerosis of the arterial vas culature. MUSCULOSKELETAL: No acute osseous abnormalities, left anterior thigh intramuscular hematoma measuring 26 x 26 mm. Multilevel fixation changes of the spine including T10-L1 with vertebroplasty changes in the fixation hardware at T10 and T12. LYMPH NODES: No gross evidence for lymphadenopathy. SOFT TISSUE/ABDOMINAL WALL: Right lateral flank 80 x 53 x 92 mm suspected hematoma. IMPRESSION: 1. No evidence for obstructive uropathy or renal calculus. 2. Right lateral flank 80 x 53 x 92 mm suspected hematoma. Correlate with history of trauma. 3. Prostatomegaly correlate with serum PSA. 4. Circumferential wall thickening possibly due to underdistention correlate with urinalysis.
== END 2024-01-20 21:51 | disposition home or self-care (01) ==
LOC: EC 13:51
CPT/HCPCS: 74177; 96374; 99283